=== PATIENT | male | born 1935 | race Caucasian/White ===

== ENCOUNTER 2017-01-21 18:50 | Emergency (ER) | payer MEDICARE, MEDICAID ==
[2017-01-21] MEDS ORDERED: Lactated Ringer's 1,000 ML IV STA (19:40)
--- NOTE | 2017-01-21 19:40 | C.PDOC ---
History Of Present Illness 81 year old male with Hx of diabetes is brought into the ED by EMS. Patient was found unresponsive hypoglycemic with blood sugar at 25, he is an insulin dependant diabetic. Patient received D 50 IVP and now sugar is at 140, currently awake and oriented. Patient denies any fever, couch, SOB, CP, nausea, vomit, abdominal pain. Time Seen by Provider: 01/21/17 19:40 Chief Complaint (Nursing): Medical Clearance History Per: Patient, EMS History/Exam Limitations: no limitations Onset/Duration Of Symptoms: Hrs Current Symptoms Are (Timing): Still Present Recent travel outside of the [place]: No Additional History Per: Patient, EMS Past Medical History Reviewed: Historical Data, Nursing Documentation, Vital Signs Vital Signs: Last Vital Signs Temp 97.8 F 01/21/17 19:07 Pulse 74 01/21/17 20:34 Resp 24 01/21/17 20:34 BP 178/73 H 01/21/17 20:34 Pulse Ox 98 01/21/17 22:25 - Medical History PMH: HTN Surgical History: No Surg Hx Family History: States: Unknown Family Hx - Social History Hx Alcohol Use: No Hx Substance Use: No - Immunization History Hx Tetanus Toxoid Vaccination: No Hx Influenza Vaccination: No Hx Pneumococcal Vaccination: No Review Of Systems Constitutional: Negative for: Fever, Chills Cardiovascular: Negative for: Chest Pain, Palpitations Respiratory: Negative for: Shortness of Breath Gastrointestinal: Negative for: Nausea, Vomiting, Abdominal Pain Genitourinary: Negative for: Frequency, Incontinence Musculoskeletal: Negative for: Back Pain Skin: Negative for: Rash Neurological: Negative for: Weakness, Numbness Psych: Negative for: Anxiety Physical Exam - Physical Exam Appears: Non-toxic, No Acute Distress Skin: Warm, Dry Head: Normacephalic Eye(s): bilateral: Normal Inspection Oral Mucosa: Moist Neck: Normal ROM, Supple Chest: Symmetrical Cardiovascular: Rhythm Regular, No Murmur Respiratory: No Rales, No Rhonchi, No Wheezing Gastrointestinal/Abdominal: Soft, Distention, Other (Tympanic to percussion ) Back: Normal Inspection Extremity: No Pedal Edema, No Deformity, No Swelling Extremity: Bilateral: Atraumatic, Normal Color And Temperature Pulses: Left Dorsalis Pedis: Normal, Right Dorsalis Pedis: Normal Neurological/Psych: Oriented x3, Normal Speech, Normal Cognition Gait: Steady ED Course And Treatment - Laboratory Results Result Diagrams: 01/21/17 19:42 01/21/17 19:42 ECG: Interpreted By Me, Viewed By Me ECG Rhythm: Sinus Rhythm (81), Nonspecific Changes O2 Sat by Pulse Oximetry: 98 (On RA) Pulse Ox Interpretation: Normal Progress Note: Plan: -EKG, Blood work, CXR, UA ordered. -Lactated 200 mls/Hr given Reevaluation Time: 22:31 Reassessment Condition: Improved Disposition Counseled Patient/Family Regarding: Studies Performed, Diagnosis, Need For Followup - Disposition Referrals: Nikolay Malagon MD [Staff Provider] - Disposition: HOME/ ROUTINE Disposition Time: 19:40 Condition: FAIR Additional Instructions: Please return of symptoms recur Instructions: Diabetic Hypoglycemia (DC) Forms: [employer] (Montenegrin) Print Language: MALAY - Clinical Impression Clinical Impression: Hypoglycemia due to type 1 diabetes mellitus - Scribe Statement The provider has reviewed the documentation as recorded by the Scribe Paco Esparza All medical record entries made by the Scribe were at my direction and personally dictated by me. I have reviewed the chart and agree that the record accurately reflects my personal performance of the history, physical exam, medical decision making, and the department course for this patient. I have also personally directed, reviewed, and agree with the discharge instructions and disposition.
[2017-01-21 19:45] LABS: BASO # 0.1 K/uL (0.0-0.2); BASO % 0.6 % (0.0-2.0); EOS # 0.1 K/uL (0.0-0.7); EOS % 1.1 % (0.0-4.0); HEMATOCRIT 33.9 % (35.0-51.0); LYMPH # 0.8 K/uL (1.0-4.3); LYMPH % 8.6 % (20.0-40.0); MEAN CELL VOLUME 86.8 fL (80.0-94.0); MEAN CORPUSCULAR HEMOGLOBIN 28.4 pg (27.0-31.0); MEAN CORPUSCULAR HGB CONC 32.7 g/dL (33.0-37.0); MEAN PLATELET VOLUME 7.9 fL (7.2-11.7); MONO % 10.1 % (0.0-10.0); PLATELET COUNT 246 K/uL (130-400); RED CELL DISTRIBUTION WIDTH 16.1 % (11.5-14.5); WHITE BLOOD COUNT 9.5 K/uL (4.8-10.8)
[2017-01-21 20:06] LABS: RBC URINE < 1 /hpf (0-3); URINE BILIRUBIN NEGATIVE (NEGATIVE); URINE BLOOD NEGATIVE (NEGATIVE); URINE COLOR Yellow (YELLOW); URINE GLUCOSE (UA) 2+ mg/dL (Normal); URINE KETONE NEGATIVE (NEGATIVE); URINE PROTEIN NEGATIVE (NEGATIVE); WBC URINE 2 /hpf (0-5)
[2017-01-21 20:09] LABS: URINE LEUKOCYTE ESTERASE TRACE Leu/uL (Negative)
[2017-01-21 20:10] LABS: EOSINOPHIL 1 % (0-4); NEUTROPHIL 79 % (50-75); TOTAL CELLS COUNTED 100
[2017-01-21 20:15] LABS: CHLORIDE 96 mmol/L (98-107); POTASSIUM 3.8 mmol/L (3.6-5.2); SODIUM 129 mmol/L (132-148)
[2017-01-21] MEDS ORDERED: Lactated Ringer's 1,000 ML ONE (20:15)
[2017-01-21 20:17] LABS: BILIRUBIN,TOTAL 0.7 mg/dL (0.2-1.3); GFR AFRICAN-AMERICAN > 60
[2017-01-21 20:18] LABS: ALB/GLOB RATIO 1.2 (1.0-2.1); ALKALINE PHOSPHATASE 130 U/L (38-126); ALT/SGPT 98 U/L (21-72); AST/SGOT 94 U/L (17-59); BLOOD UREA NITROGEN 10 mg/dL (9-20); CARBON DIOXIDE 24 mmol/L (22-30); GLUCOSE,RANDOM 124 mg/dL (75-110); TOTAL PROTEIN 6.8 g/dL (6.3-8.3)
[2017-01-21 20:19] LABS: CALCIUM 7.8 mg/dl (8.6-10.4)
[2017-01-21 20:35] LABS: VENOUS BLOOD GAS BASE EXCESS -2.6 mmol/L (0.0-2.0); VENOUS BLOOD GAS PCO2 46 mmHg (40-60); VENOUS BLOOD PH 7.32 (7.32-7.43)
[2017-01-21 22:25] VITALS: O2SAT 98
[2017-01-21 22:45] VITALS: BP 168/92; PULSE 86; RESP 22; TEMP 97.4
--- NOTE | 2017-01-22 09:37 | RAD ---
PROCEDURE: CHEST RADIOGRAPH, 1 VIEW Technique: Single view portable semi erect @ 19:49. HISTORY: Diabetic COMPARISON: None available. FINDINGS: LUNGS: Clear. PLEURA: No pneumothorax or pleural fluid seen. CARDIOVASCULAR: Cardiomegaly. No evidence of acute, significant cardiovascular disease. OSSEOUS STRUCTURES: No significant abnormalities. VISUALIZED UPPER ABDOMEN: Normal. OTHER FINDINGS: None. IMPRESSION: No active disease.
--- NOTE | 2017-01-22 12:23 | CARD ---
APPROVED REPORT EKG Measurement Heart [id number] <Conclusion> Normal sinus rhythm Normal ECG
== END 2017-01-21 22:41 | disposition home or self-care (01) ==
LOC: C.ER 18:50
DX: E10.649 Type 1 diabetes mellitus with hypoglycemia without coma (principal); Z79.4 Long term (current) use of insulin; I10 Essential (primary) hypertension
CPT/HCPCS: 71010; 80053; 81001; 82009; 82803; 82948; 83880; 84484; 85025; 93005; 96360; 99283; J7120

== ENCOUNTER 2018-04-08 02:27 | Inpatient (IN) | payer MEDICARE, MEDICAID ==
[2018-04-08] MEDS ORDERED: Albuterol-Ipratrop 3 mg / 0.5 (3 ml) UD INH STA ×4 (02:30→19:01)
[2018-04-08] MEDS ORDERED: Albuterol-Ipratrop 3 mg / 0.5 (3 ml) UD ONE (02:37)
[2018-04-08] MEDS ORDERED: Aspirin 325 mg EC Tablets PO STA (02:56)
--- NOTE | 2018-04-08 02:56 | C.PDOC ---
History Of Present Illness 82 year old male presents to the ED c/o chest discomfort and SOB. Patient reports when he walks a block he feels chest pain. Patient is a non insulin dependent DM. Patient denies fever, chills, nausea, vomit, diarrhea, headache, weakness, numbness. Time Seen by Provider: 04/08/18 02:55 Chief Complaint (Nursing): Chest Pain History Per: Patient History/Exam Limitations: no limitations Onset/Duration Of Symptoms: Days Current Symptoms Are (Timing): Still Present Context: Other Severity: Moderate Pain Scale Rating Of: 4 Quality: Dull, Tightness Associated Symptoms: Dyspnea Exacerbating Factors: Exertion Alleviating Factors: None Recent travel outside of the [place]: No Additional History Per: Patient, Family Past Medical History Reviewed: Historical Data, Nursing Documentation, Vital Signs Vital Signs: Last Vital Signs Temp 98.8 F 04/08/18 02:43 Pulse 60 04/08/18 02:43 Resp 22 04/08/18 02:43 BP 158/69 H 04/08/18 02:43 Pulse Ox 100 04/08/18 02:43 - Medical History PMH: HTN Denies: Chronic Kidney Disease Surgical History: No Surg Hx Family History: States: Unknown Family Hx - Social History Hx Alcohol Use: No Hx Substance Use: No - Immunization History Hx Tetanus Toxoid Vaccination: No Hx Influenza Vaccination: No Hx Pneumococcal Vaccination: No Review Of Systems Constitutional: Negative for: Fever, Chills Eyes: Negative for: Vision Change Cardiovascular: Positive for: Chest Pain. Negative for: Palpitations Respiratory: Positive for: Shortness of Breath, SOB with Excertion. Negative for: Cough Gastrointestinal: Negative for: Nausea, Vomiting, Abdominal Pain Genitourinary: Negative for: Dysuria Musculoskeletal: Negative for: Back Pain Skin: Negative for: Rash Neurological: Negative for: Weakness, Numbness, Headache, Dizziness Psych: Negative for: Anxiety Physical Exam - Physical Exam Appears: Non-toxic, No Acute Distress Skin: Warm, Dry Head: Normacephalic Eye(s): bilateral: Normal Inspection Oral Mucosa: Moist Neck: Trachea Midline, Supple Chest: Symmetrical Cardiovascular: Rhythm Regular Respiratory: No Rales, No Rhonchi, No Wheezing Gastrointestinal/Abdominal: Bowel Sounds (tympanic to percussion), Soft, No Tenderness, Distention, No Guarding, No Rebound, Other (tympanic to percussion) Back: Normal Inspection Extremity: Pedal Edema (trace), Capillary Refill (< 2 seconds) Extremity: Bilateral: Atraumatic, Normal Color And Temperature, Normal ROM Pulses: Left Dorsalis Pedis: Normal, Right Dorsalis Pedis: Normal Neurological/Psych: Oriented x3, Normal Speech, Normal Cognition Gait: Steady ED Course And Treatment - Laboratory Results Result Diagrams: 04/08/18 03:06 04/08/18 03:06 ECG: Interpreted By Me, Viewed By Me ECG Rhythm: Sinus Rhythm (58), Nonspecific Changes O2 Sat by Pulse Oximetry: 100 (On RA) Pulse Ox Interpretation: Normal Progress Note: Plan: - EKG. - Labs. - CXR. -Albuterol neb. - Aspirin 325 mg PO. - CT abd/pelvis Disposition Discussed With : Chance Linares Comment: accepted the pt on his service and took over the care at 5:22 AM Doctor Will See Patient In The: Hospital Counseled Patient/Family Regarding: Studies Performed, Diagnosis - Disposition Disposition: HOSPITALIZED Disposition Time: 02:00 Condition: FAIR Forms: [employer] (Telugu) - POA Present On Arrival: Poor Glycemic Control - Clinical Impression Clinical Impression: Chest pain, ROJAS (dyspnea on exertion) - Scribe Statement The provider has reviewed the documentation as recorded by the Scribe Paco Esparza All medical record entries made by the Scribe were at my direction and personally dictated by me. I have reviewed the chart and agree that the record accurately reflects my personal performance of the history, physical exam, medical decision making, and the department course for this patient. I have also personally directed, reviewed, and agree with the discharge instructions and disposition. Decision To Admit - Pt Status Changed To: Hospital Disposition Of: Inpatient - Admit Certification Admit to Inpatient:: After my assessment, the patient will require hospitali zation for at least two midnights. This is because of the severity of symptoms shown, intensity of services needed, and/or the medical risk in this patient being treated as an outpatient. - InPatient: Physician Admission Certification: I certify that this patient requires 2 or more midnights of care for the following reason:: After my assessment, the patient will require hospitalization for at least two midnights. This is because of the severity of symptoms shown, intensity of services needed, and/or the medical risk in this patient being treated as an outpatient. - . Bed Request Type: Telemetry Admitting Physician: Chance Linares Patient Diagnosis: Chest pain, ROJAS (dyspnea on exertion)
[2018-04-08 03:09] LABS: BASO # 0.1 K/uL (0.0-0.2); BASO % 0.9 % (0.0-2.0); EOS # 0.3 K/uL (0.0-0.7); EOS % 3.5 % (0.0-4.0); LYMPH # 2.4 K/uL (1.0-4.3); LYMPH % 23.9 % (20.0-40.0); MEAN CELL VOLUME 68.3 fL (80.0-94.0); MEAN CORPUSCULAR HEMOGLOBIN 20.6 pg (27.0-31.0); MEAN CORPUSCULAR HGB CONC 30.1 g/dL (33.0-37.0); MEAN PLATELET VOLUME 7.9 fL (7.2-11.7); MONO # 0.8 K/uL (0.0-0.8); MONO % 8.5 % (0.0-10.0); NEUT # 6.2 K/uL (1.8-7.0); NEUT % 63.2 % (50.0-75.0); NRBC % 0.1 % (0.0-2.0); RBC 3.91 Mil/uL (4.40-5.90); RED CELL DISTRIBUTION WIDTH 18.1 % (11.5-14.5); WHITE BLOOD COUNT 9.9 K/uL (4.8-10.8)
[2018-04-08 03:24] LABS: ALB/GLOB RATIO 1.1 (1.0-2.1); ALBUMIN 3.6 g/dL (3.5-5.0); ALT/SGPT 30 U/L (21-72); AST/SGOT 50 U/L (17-59); BLOOD UREA NITROGEN 17 mg/dL (9-20); GFR NON-AFRICAN AMERICAN > 60; INR 1.1; LIPASE 330 U/L (23-300); PROTHROMBIN TIME 12.2 SECONDS (9.7-12.2)
[2018-04-08 03:35] LABS: B-TYPE NATRIURETIC PEPTIDE 522 pg/mL (0-900)
[2018-04-08] MEDS ORDERED: Iodixanol 320 MG/ML 100 ML BOTTLE IV ONE (04:29)
--- NOTE | 2018-04-08 06:01 | CP.PCM.HP ---
<Patrice Al - Last Filed: 04/08/18 08:07> History of Present Illness - History of Present Illness History of Present Illness: PGY1 H&P for medicine hospitalist CC: chest discomfort and shortness of breath This is an 82 year old male with PMH of IDDM, HTN, BPH, arthritis who was brought in by ambulance for a 1 week history of worsening chest discomfort and shortness of breath on exertion. Pt describes the chest discomfort as a pressure across the lower chest/upper abdomen. He states that he becomes short of breath after walking approximately 15 feet, and states that he has had a cough productive of white sputum for the past week as well. Patient is also complaining of lower back pain which has been going on for some time now, he is unable to state how long. He denies fever, chills, palpitations, abdominal pain, n/v/d, hematochezia, melena, falls, syncope, dizziness, weakness, weight loss, decreased appetite, hematuria, new urinary complaints. He endorses chronic bl urry vision. He states that he has gained approximately 20 pounds over the past year. PMD: Manas PMH: IDDM, HTN, BPH, arthritis. He denies CAD, HLD NV or PAD in the past. PSH: denies Meds: metoprolol 100 mg PO daily, torsemide 1 tab daily, clopidogrel 1 tab daily (unsure of dose and why he takes it), Metformin 500 mg PO BID, Finasteride 5 mg PO daily, Vitamin D, Tamsulosin 0.4 mg PO daily, Ibuprofen 400 mg PO as needed for arthritic pain (mostly in the knees), novolog flex pen 4 units three times a da, Toujeo 45 units at nighttime Allx: NKDA FHx: denies Social History: denies history of etoh, smoking, or drug use Present on Admission - Present on Admission Any Indicators Present on Admission: No Review of Systems - Review of Systems All systems: reviewed and no additional remarkable complaints except (as per HPI) Past Patient History - Past Social History Smoking Status: Never Smoked - CARDIAC Hx Hypertension: Yes - PULMONARY Hx Respiratory Disorders: No - NEUROLOGICAL Hx Neurological Disorder: No - HEENT Hx HEENT Problems: No - RENAL Hx Chronic Kidney Disease: No - ENDOCRINE/METABOLIC Hx Diabetes Mellitus Type 1: No Hx Diabetes Mellitus Type 2: Yes - GENITOURINARY/GYNECOLOGICAL Hx Prostate Problems: Yes - PSYCHIATRIC Hx Substance Use: No - SURGICAL HISTORY Hx Surgeries: No - ANESTHESIA Hx Anesthesia: No Meds Allergies/Adverse Reactions: Allergies Allergy/AdvReac Type Severity Reaction Status Date / Time No Known Allergies Allergy Verified 04/08/18 02:48 Physical Exam - Constitutional Appears: Non-toxic, No Acute Distress - Head Exam Head Exam: ATRAUMATIC, NORMAL INSPECTION - Eye Exam Eye Exam: EOMI - ENT Exam ENT Exam: Mucous Membranes Moist - Neck Exam Neck exam: Positive for: Normal Inspection - Respiratory Exam Respiratory Exam: Wheezes, NORMAL BREATHING PATTERN. absent: Rales, Rhonchi, Respiratory Distress - Cardiovascular Exam Cardiovascular Exam: REGULAR RHYTHM, +S1, +S2. absent: JVD - GI/Abdominal Exam GI & Abdominal Exam: Distended (with tympany, normal as per pt), Normal Bowel Sounds. absent: Firm, Guarding, Pulsatile Mass, Rebound, Rigid, Tenderness - Rectal Exam Rectal Exam: Deferred - Extremities Exam Extremities exam: Positive for: normal capillary refill, pedal edema, pedal pulses present. 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 absent: CVA tenderness (L), CVA tenderness (R) - Neurological Exam Neurological exam: Alert, Oriented x3 - Psychiatric Exam Psychiatric exam: Normal Affect, Normal Mood - Skin Skin Exam: Dry, Normal Color, Warm Results - Vital Signs Recent Vital Signs: Last Vital Signs Temp 98.8 F 04/08/18 02:43 Pulse 58 L 04/08/18 02:57 Resp 18 04/08/18 02:57 BP 158/69 H 04/08/18 02:43 Pulse Ox 100 04/08/18 05:24 - Labs Result Diagrams: 04/08/18 03:06 04/08/18 03:06 Labs: Laboratory Results - last 24 hr 04/08/18 04/08/18 04/08/18 03:06 03:06 03:06 WBC 9.9 RBC 3.91 L Hgb 8.0 L D Hct 26.7 L MCV 68.3 L D MCH 20.6 L MCHC 30.1 L RDW 18.1 H Plt Count 294 MPV 7.9 Neut % (Auto) 63.2 Lymph % (Auto) 23.9 [place] % (Auto) 8.5 Eos % (Auto) 3.5 Baso % (Auto) 0.9 Neut # (Auto) 6.2 Lymph # (Auto) 2.4 [place] # (Auto) 0.8 Eos # (Auto) 0.3 Baso # (Auto) 0.1 PT 12.2 INR 1.1 APTT 31 Sodium 126 L Potassium 4.4 Chloride 93 L Carbon Dioxide 28 Anion Gap 10 BUN 17 Creatinine 0.6 L Est GFR ( Amer) > 60 Est GFR (Non-Af Amer) > 60 Random Glucose 78 D Calcium 8.0 L Total Bilirubin 0.5 AST 50 ALT 30 Alkaline Phosphatase 122 Troponin I < 0.0120 NT-Pro-B Natriuret Pep 522 Total Protein 6.7 Albumin 3.6 Globulin 3.2 Albumin/Globulin Ratio 1.1 Lipase 330 H Assessment & Plan - Assessment and Plan (Free Text) Assessment: This is an 82 year old male with PMH of IDDM, HTN, BPH, arthritis who presents with a 1 week history of worsening dyspnea on exertion and dull/pressure chest discomfort. Plan: Chest pain with dyspnea on exertion r/o ACS, likely due to CHF Pt received ASA 325 mg PO x1 dose in the ED Although patient denies having CHF, he is on medications for CHF treatment BNP is 522 on admission Troponin x1 is negative, f/u DEBRA x2 Q6H with EKG Lasix 20 mg IVP daily, hold home torsemide Cardiology, Dr. Andrade, consulted, recs appreciated F/u Echocardiogram Plavix on hold. F/u up with Dr. Malagon regarding why patient is taking Plavix as he denies history of stent placement Elevated lipase, possibly due to constipation Lipase is 330 on admission No GI complaints on admission Abdominal CT shows mild irregularity of the liver, probably chronic parenchymal liver disease. Benign simple left hepatic lobe cyst. Uncomplicated colonic diverticulosis. Minimal left pleural effusion. Mild right pleural effusion. Passive atelectatic airspace disease of the lower lobes. Prostatomegaly. Mild diffuse thickening of the bladder. Probably secondary to chronic bladder outlet obstruction. Unremarkable CT evaluation of the pancreas. Lactulose PO x 1 dose Anemia, microcytic; Possibly contributing to pt's dyspnea H/H is 8.0/26.7 on admission, MCV is 68.3 F/u iron, TIBC, ferritin, reticulocyte count, FOBT Hyponatremia, likely chronic and possibly due to CHF Sodium is 126 on admission, pt is stable F/u urine sodium, urine osmolality, serum osmolality Insulin dependant diabetes mellitus Continue home Novolog 4 units ACHS Will start insulin Glargine 45 units at bedtime instead of home Toujeo 45 units at bedtime Accucheck ACHS ISS medium Hypoglycemia protocol F/u HgbA1c, Lipid panel Lumbar back pain, likely musculoskeletal/arthritis or due to spondylosis noted on abdominal CT Hold home ibuprofen in setting of anemia F/u lumbar spine x-ray Hx of HTN Continue home lisinopril 40 mg PO daily, metoprolol 100 mg PO daily Hx of BPH Continue home Finasteride 5 mg PO daily, Tamsulosin 0.4 mg PO daily GI Ppx: Pepcid 20 mg PO daily DVT ppx: on hold due to anemia, f/u fobt CCD/HHD Case reviewed and discussed with attending physician, Dr. Milagros Al PGY1 <Chance Linares - Last Filed: 04/09/18 05:40> Results - Vital Signs Recent Vital Signs: Last Vital Signs Temp 99.4 F 04/08/18 23:05 Pulse 68 04/09/18 00:05 Resp 20 04/08/18 23:05 BP 172/82 H 04/09/18 04:00 Pulse Ox 98 04/08/18 23:05 - Labs Result Diagrams: 04/08/18 03:06 04/08/18 03:06 Labs: Laboratory Results - last 24 hr 04/08/18 04/08/18 04/08/18 10:03 11:28 11:28 Retic Count Puncture Site pCO2 pO2 HCO3 ABG pH ABG Total CO2 ABG O2 Saturation ABG Base Excess Spike Test ABG Potassium A-a O2 Difference Respiratory Index Sodium Chloride Glucose Lactate Liter Flow FiO2 POC Glucose (mg/dL) 128 H Hemoglobin A1c Serum Osmolality Iron 21 L TIBC 502 H Ferritin 5.7 Total Creatine Kinase CK-MB (Mass) Troponin I Triglycerides 120 Cholesterol 150 LDL Cholesterol Direct 94 HDL Cholesterol 36 Arterial Blood Potassium Urine Osmolality Ur Random Sodium 04/08/18 04/08/18 04/08/18 11:28 11:28 11:28 Retic Count 2.3 H Puncture Site pCO2 pO2 HCO3 ABG pH ABG Total CO2 ABG O2 Saturation ABG Base Excess Spike Test ABG Potassium A-a O2 Difference Respiratory Index Sodium Chloride Glucose Lactate Liter Flow FiO2 POC Glucose (mg/dL) Hemoglobin A1c 8.7 H Serum Osmolality 276 Iron TIBC Ferritin Total Creatine Kinase CK-MB (Mass) Troponin I Triglycerides Cholesterol LDL Cholesterol Direct HDL Cholesterol Arterial Blood Potassium Urine Osmolality Ur Random Sodium 04/08/18 04/08/18 04/08/18 12:43 17:30 17:38 Retic Count Puncture Site pCO2 pO2 HCO3 ABG pH ABG Total CO2 ABG O2 Saturation ABG Base Excess Spike Test ABG Potassium A-a O2 Difference Respiratory Index Sodium Chloride Glucose Lactate Liter Flow FiO2 POC Glucose (mg/dL) 163 H 165 H Hemoglobin A1c Serum Osmolality Iron TIBC Ferritin Total Creatine Kinase 229 H CK-MB (Mass) 2.78 Troponin I < 0.0120 Triglycerides Cholesterol LDL Cholesterol Direct HDL Cholesterol Arterial Blood Potassium Urine Osmolality Ur Random Sodium 04/08/18 04/08/18 04/08/18 18:40 19:10 21:07 Retic Count Puncture Site Rra pCO2 45 pO2 96 HCO3 26.9 ABG pH 7.40 ABG Total CO2 29.3 H ABG O2 Saturation 99.3 H ABG Base Excess 2.5 Spike Test Pos ABG Potassium 4.2 A-a O2 Difference 76.0 Respiratory Index 0.8 Sodium 130.0 L Chloride 99.0 Glucose 136 H Lactate 1.1 Liter Flow 3.0 FiO2 32.0 POC Glucose (mg/dL) 252 H Hemoglobin A1c Serum Osmolality Iron TIBC Ferritin Total Creatine Kinase CK-MB (Mass) Troponin I Triglycerides Cholesterol LDL Cholesterol Direct HDL Cholesterol Arterial Blood Potassium 4.2 Urine Osmolality 251 L Ur Random Sodium 75 04/09/18 02:06 Retic Count Puncture Site pCO2 pO2 HCO3 ABG pH ABG Total CO2 ABG O2 Saturation ABG Base Excess Spike Test ABG Potassium A-a O2 Difference Respiratory Index Sodium Chloride Glucose Lactate Liter Flow FiO2 POC Glucose (mg/dL) 231 H Hemoglobin A1c Serum Osmolality Iron TIBC Ferritin Total Creatine Kinase CK-MB (Mass) Troponin I Triglycerides Cholesterol LDL Cholesterol Direct HDL Cholesterol Arterial Blood Potassium Urine Osmolality Ur Random Sodium Assessment & Plan - Date & Time Date: 04/09/18 (I have seen and examined the patient. I agree with the findings and plan of care as documented by Dr. Al. Patient with chest pain. ROMIx3 with EKG. Aspirin and Statin. Hyponatremia. IVF NS. Recheck. History of diabetes. Accuchecks and continue home meds. Constipation. Colace and consider enema if necessary. Monitor for acute changes.) Time: 05:38 Attending/Attestation - Attestation I have personally seen and examined this patient.: Yes I have fully participated in the care of the patient.: Yes I have reviewed all pertinent clinical information: Yes
[2018-04-08] MEDS ORDERED: Glucagon Recombinant 1 mg Inj IM PRN (07:17)
[2018-04-08] MEDS ORDERED: Dextrose 50% SYRINGE Inj (50 ml) IV PRN (07:17)
[2018-04-08] MEDS ORDERED: (Novolog) Insulin Aspart, Recombinant 100 u/ml 10 ml vial ONE (10:18)
[2018-04-08] MEDS ORDERED: Metoprolol Succinate 50 mg XL Tab PO ONE (10:23)
[2018-04-08] MEDS: (Novolin R) Insulin Human Regular 100 units/ml vial SC SCH ×4 (10:24→21:20)
[2018-04-08] MEDS: (Novolog) Insulin Aspart, Recombinant 100 u/ml 10 ml vial SC SCH ×5 (10:25→21:49)
[2018-04-08] MEDS: Metoprolol Succinate 100 mg XL Tab PO SCH (10:25)
[2018-04-08 12:04] LABS: IRON 21 ug/dL (49-181)
[2018-04-08 12:16] LABS: TOTAL IRON BINDING CAPACITY 502 ug/dL (250-450)
--- NOTE | 2018-04-08 12:20 | RAD ---
Date of service: 04/08/2018 HISTORY: Dyspnea. COMPARISON: 03/23/2016 TECHNIQUE: Chest PA and lateral FINDINGS: LUNGS: Stable elevation of the right hemidiaphragm. Pulmonary vascular congestion identified. PLEURA: No significant pleural effusion identified. No pneumothorax apparent. CARDIOVASCULAR: No aortic atherosclerotic calcification present. Cardiomegaly/pulmonary vascular congestion. OSSEOUS STRUCTURES: No significant abnormalities. VISUALIZED UPPER ABDOMEN: Normal. OTHER FINDINGS: None. IMPRESSION: Cardiomegaly/CHF
--- NOTE | 2018-04-08 12:21 | RAD ---
Date of service: 04/08/2018 PROCEDURE: Radiographs of the Lumbar Spine. HISTORY: lower back pain COMPARISON: No prior. FINDINGS: BONES: Normal alignment. No listhesis. No fracture. DISC SPACES: Disc degenerative change and associated non marginal osteophytes lower thoracic and upper lumbar spine. OTHER FINDINGS: Calcified nonaneurysmal abdominal aorta. IMPRESSION: Mild degenerative change. No acute findings.
[2018-04-08 12:35] LABS: FERRITIN 5.7 ng/mL
--- NOTE | 2018-04-08 12:50 | CP.PCM.CON ---
<RonTana EasonStephanie - Last Filed: 04/08/18 18:05> History of Present Illness - History of Present Illness History of Present Illness: Cardiology Consult Note for Dr. Andrade: 82 year old male with past medical history of IDDM, HTN, BPH, arthritis who was brought to the ER by ambulance for a 2 weeks of shortness of breath that became worse today as it was associated with chest pain. Patient states the chest pain is located in the middle upper area of his chest and he denies radiation of the pain. He states the shortness of breath is on exertion. He states he previously was able to walk about 14 blocks without a problem and now he cannot. He states he sleeps with 2 pillows at night. He states he feels like he can hear a rumbling sound in his throat and it is uncomfortable. He also complains of cough with phlegm which is yellow and white in color. He denies fever, chills, palpitations, abdominal pain, nausea, vomiting, diarrhea, hematochezia, melena, falls, syncope, dizziness, weakness, weight loss, decreased appetite or hematuria. PMD: Dr. Malagno Past Medical History: Insulin dependent diabetes mellitus, HTN, BPH, arthritis. Past Surgical History: denies Medications: see MAR Allergies: NKDA Social History: denies ever smoking. denies alcohol or illicit drug use. Lives with daughter. Originally from [facility] has been here for 20+ years. Denies recent travel Review of Systems - Constitutional Constitutional: absent: Chills, Fever - Cardiovascular Cardiovascular: Chest Pain, Dyspnea, Leg Edema. absent: Chest Pain with Activity, Lightheadedness, Palpitations, Syncope - Respiratory Respiratory: Cough, Dyspnea, Chest Congestion, Change in Mucous Color (yellow/white ) - Gastrointestinal Gastrointestinal: absent: Constipation, Diarrhea, Nausea, Vomiting - Genitourinary Genitourinary: absent: Dysuria - Neurological Neurological: absent: Dizziness, Headaches - Endocrine Endocrine: absent: Fatigue, Palpitations Past Patient History - Past Medical History & Family History Past Medical History?: Yes - Past Social History Smoking Status: Never Smoked - CARDIAC Hx Hypertension: Yes - PULMONARY Hx Respiratory Disorders: No - NEUROLOGICAL Hx Neurological Disorder: No - HEENT Hx HEENT Problems: No - RENAL Hx Chronic Kidney Disease: No - ENDOCRINE/METABOLIC Hx Diabetes Mellitus Type 2: Yes - HEMATOLOGICAL/ONCOLOGICAL Hx Blood Disorders: No - INTEGUMENTARY Hx Dermatological Problems: No - MUSCULOSKELETAL/RHEUMATOLOGICAL Hx Musculoskeletal Disorders: No Hx Falls: Yes - GASTROINTESTINAL Hx Gastrointestinal Disorders: No - GENITOURINARY/GYNECOLOGICAL Hx Prostate Problems: Yes - PSYCHIATRIC Hx Substance Use: No - SURGICAL HISTORY Hx Surgeries: No - ANESTHESIA Hx Anesthesia: No Meds Allergies/Adverse Reactions: Allergies Allergy/AdvReac Type Severity Reaction Status Date / Time No Known Allergies Allergy Verified 04/08/18 02:48 - Medications Medications: Current Medications Dextrose (Dextrose 50% Inj) 0 ml IV STAT PRN; Protocol PRN Reason: Hypoglycemia Protocol Dextrose (Glutose 15) 0 gm PO ONCE PRN; Protocol PRN Reason: Hypoglycemia Protocol Famotidine (Pepcid) 20 mg PO DAILY [facility] Last Admin: 04/08/18 10:25 Dose: 20 mg Finasteride (Proscar) 5 mg PO DAILY [facility] Furosemide (Lasix) 20 mg IVP DAILY [facility] Last Admin: 04/08/18 10:23 Dose: 20 mg Glucagon (Glucagen Diagnostic Kit) 0 mg IM STAT PRN; Protocol PRN Reason: Hypoglycemia Protocol Dextrose (Dextrose 5% In Water 1000 Ml) 1,000 mls @ 0 mls/hr IV .Q0M PRN; Protocol PRN Reason: Hypoglycemia Protocol Insulin Aspart (Novolog) 4 unit SC [facility] Last Admin: 04/08/18 10:25 Dose: 4 unit Insulin Glargine (Lantus) 45 unit SC [facility] Insulin Human Regular (Novolin R) 0 unit SC [facility]; Protocol Last Admin: 04/08/18 10:24 Dose: Not Given Lisinopril (Zestril) 40 mg PO DAILY [facility] Last Admin: 04/08/18 10:25 Dose: 40 mg Metoprolol Succinate (Toprol Xl) 100 mg PO DAILY [facility] Last Admin: 04/08/18 10:25 Dose: 100 mg Pneumococcal Polyvalent Vaccine (Pneumovax 23 Vaccine) 0.5 ml IM .ONCE ONE Stop: 04/10/18 10:01 Tamsulosin HCl (Flomax) 0.4 mg PO DAILY [facility] Last Admin: 04/08/18 10:23 Dose: 0.4 mg Physical Exam - Constitutional Appears: In Acute Distress - Head Exam Head Exam: ATRAUMATIC, NORMAL INSPECTION - Eye Exam Eye Exam: EOMI, Normal appearance - ENT Exam ENT Exam: Mucous Membranes Moist - Respiratory Exam Respiratory Exam: Decreased Breath Sounds, NORMAL BREATHING PATTERN. absent: Rales, Rhonchi, Wheezes - Cardiovascular Exam Cardiovascular Exam: REGULAR RHYTHM, RRR, +S1, +S2. absent: JVD - GI/Abdominal Exam GI & Abdominal Exam: Distended, Firm, Normal Bowel Sounds. absent: Tenderness - Extremities Exam Extremities exam: Positive for: pedal edema (+1 pedal edema bilateral LE) - Neurological Exam Neurological exam: Alert, Oriented x3 - Psychiatric Exam Psychiatric exam: Normal Affect, Normal Mood - Skin Skin Exam: Normal Color Results - Vital Signs Recent Vital Signs: Last Vital Signs Temp 98.8 F 04/08/18 02:43 Pulse 58 L 04/08/18 02:57 Resp 18 04/08/18 02:57 BP 147/56 L 04/08/18 10:23 Pulse Ox 100 04/08/18 05:24 - Labs Result Diagrams: 04/08/18 03:06 04/08/18 03:06 Labs: Laboratory Results - last 24 hr 04/08/18 04/08/18 04/08/18 03:06 03:06 03:06 WBC 9.9 RBC 3.91 L Hgb 8.0 L D Hct 26.7 L MCV 68.3 L D MCH 20.6 L MCHC 30.1 L RDW 18.1 H Plt Count 294 MPV 7.9 Neut % (Auto) 63.2 Lymph % (Auto) 23.9 Kane % (Auto) 8.5 Eos % (Auto) 3.5 Baso % (Auto) 0.9 Neut # (Auto) 6.2 Lymph # (Auto) 2.4 Kane # (Auto) 0.8 Eos # (Auto) 0.3 Baso # (Auto) 0.1 Retic Count PT 12.2 INR 1.1 APTT 31 Sodium 126 L Potassium 4.4 Chloride 93 L Carbon Dioxide 28 Anion Gap 10 BUN 17 Creatinine 0.6 L Est GFR ( Amer) > 60 Est GFR (Non-Af Amer) > 60 POC Glucose (mg/dL) Random Glucose 78 D Hemoglobin A1c Serum Osmolality Calcium 8.0 L Iron TIBC Ferritin Total Bilirubin 0.5 AST 50 ALT 30 Alkaline Phosphatase 122 Troponin I < 0.0120 NT-Pro-B Natriuret Pep 522 Total Protein 6.7 Albumin 3.6 Globulin 3.2 Albumin/Globulin Ratio 1.1 Triglycerides Cholesterol LDL Cholesterol Direct HDL Cholesterol Lipase 330 H 04/08/18 04/08/18 04/08/18 10:03 11:28 11:28 WBC RBC Hgb Hct MCV MCH MCHC RDW Plt Count MPV Neut % (Auto) Lymph % (Auto) Kane % (Auto) Eos % (Auto) Baso % (Auto) Neut # (Auto) Lymph # (Auto) Kane # (Auto) Eos # (Auto) Baso # (Auto) Retic Count PT INR APTT Sodium Potassium Chloride Carbon Dioxide Anion Gap BUN Creatinine Est GFR ( Amer) Est GFR (Non-Af Amer) POC Glucose (mg/dL) 128 H Random Glucose Hemoglobin A1c Serum Osmolality Calcium Iron 21 L TIBC 502 H Ferritin 5.7 Total Bilirubin AST ALT Alkaline Phosphatase Troponin I NT-Pro-B Natriuret Pep Total Protein Albumin Globulin Albumin/Globulin Ratio Triglycerides 120 Cholesterol 150 LDL Cholesterol Direct 94 HDL Cholesterol 36 Lipase 04/08/18 04/08/18 04/08/18 11:28 11:28 11:28 WBC RBC Hgb Hct MCV MCH MCHC RDW Plt Count MPV Neut % (Auto) Lymph % (Auto) Kane % (Auto) Eos % (Auto) Baso % (Auto) Neut # (Auto) Lymph # (Auto) Kane # (Auto) Eos # (Auto) Baso # (Auto) Retic Count 2.3 H PT INR APTT Sodium Potassium Chloride Carbon Dioxide Anion Gap BUN Creatinine Est GFR ( Amer) Est GFR (Non-Af Amer) POC Glucose (mg/dL) Random Glucose Hemoglobin A1c 8.7 H Serum Osmolality 276 Calcium Iron TIBC Ferritin Total Bilirubin AST ALT Alkaline Phosphatase Troponin I NT-Pro-B Natriuret Pep Total Protein Albumin Globulin Albumin/Globulin Ratio Triglycerides Cholesterol LDL Cholesterol Direct HDL Cholesterol Lipase Assessment & Plan - Assessment and Plan (Free Text) Assessment: 82 year old male with past medical history of IDDM, HTN, BPH, arthritis who was brought to the ER by ambulance for a 2 weeks of shortness of breath that became worse today as it was associated with chest pain. Chest pain with dyspnea on exertion Possibly secondary to acute on chronic anemia vs. lung pathology (possibly lung fibrosis) Discussed with Dr. Raymond VINSON at this time is not secondary to CHF exacerbation - Patient received ASA 325 mg PO x1 dose in the ED - BNP 522 - which is within normal range - Troponin x2 is negative - Lasix 20 mg IVP daily - Lipid Panel: Total Cholesterol 150; LDL 94; HDL 36; Triglycerides 120 - ECHO (04/08/18): reviewed with Dr. Andrade which showed normal EF; Diastolic CHF - Chest CT (04/08/18): There a small right-sided effusion with minor right basilar atelectasis. Trace left effusion and minimal left basilar atelectasis. Mild pulmonary venous congestive changes are present. There is a small somewhat triangular-shaped nodular opacity in the right middle lobe that measures approximately 4.2 mm. There is also a subjacent slightly more inferiorly located 5 mm nodular opacity. - Noted in chart review patient has a stress test completed in 06/23/[address] 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 Patient denies surgeries. Will follow up with Dr. Sweet. History of HTN - Continue home lisinopril 40 mg PO daily, metoprolol 100 mg PO daily Insulin dependant diabetes mellitus - Management per primary team - hA1c 8.[address] Raymond Velasquez PGY-2 <Honorio Andrade - Last Filed: 04/09/18 22:40> Meds - Medications Medications: Current Medications Albuterol/Ipratropium (Duoneb 3 Mg/0.5 Mg (3 Ml) Ud) 3 ml INH RQ6 [facility] Last Admin: 04/09/18 19:25 Dose: 3 ml Dextrose (Dextrose 50% Inj) 0 ml IV STAT PRN; Protocol PRN Reason: Hypoglycemia Protocol Dextrose (Glutose 15) 0 gm PO ONCE PRN; Protocol PRN Reason: Hypoglycemia Protocol Finasteride (Proscar) 5 mg PO DAILY [facility] Last Admin: 04/09/18 09:36 Dose: 5 mg Furosemide (Lasix) 20 mg IVP DAILY [facility] Last Admin: 04/09/18 09:37 Dose: 20 mg Glucagon (Glucagen Diagnostic Kit) 0 mg IM STAT PRN; Protocol PRN Reason: Hypoglycemia Protocol Dextrose (Dextrose 5% In Water 1000 Ml) 1,000 mls @ 0 mls/hr IV .Q0M PRN; P rotocol PRN Reason: Hypoglycemia Protocol Piperacillin Sod/Tazobactam Sod (Zosyn 3.375 Gm Iv Premix) 3.375 gm in 50 mls @ 100 mls/hr IVPB Q6H [facility]; Protocol Last Admin: 04/09/18 20:00 Dose: 100 mls/hr Insulin Aspart (Novolog) 4 unit SC ACHS [facility] Last Admin: 04/09/18 21:41 Dose: 4 unit Insulin Glargine (Lantus) 45 unit SC HS [facility] Last Admin: 04/09/18 21:41 Dose: 45 units Insulin Human Regular (Novolin R) 0 unit SC ACHS [facility]; Protocol Last Admin: 04/09/18 21:41 Dose: 4 unit Lisinopril (Zestril) 40 mg PO DAILY [facility] Last Admin: 04/09/18 09:36 Dose: 40 mg Methylprednisolone (Solu-Medrol) 40 mg IVP Q6H [facility] Last Admin: 04/09/18 20:00 Dose: 40 mg Metoprolol Succinate (Toprol Xl) 100 mg PO DAILY [facility] Last Admin: 04/09/18 09:36 Dose: 100 mg Pantoprazole Sodium (Protonix Inj) 40 mg IVP Q12H [facility] Last Admin: 04/09/18 16:00 Dose: 40 mg Pneumococcal Polyvalent Vaccine (Pneumovax 23 Vaccine) 0.5 ml IM .ONCE ONE Stop: 04/10/18 10:01 Tamsulosin HCl (Flomax) 0.4 mg PO DAILY [facility] Last Admin: 04/09/18 09:36 Dose: 0.4 mg Results - Vital Signs Recent Vital Signs: Last Vital Signs Temp 98.9 F 04/09/18 15:00 Pulse 77 04/09/18 16:31 Resp 20 04/09/18 15:00 BP 117/76 04/09/18 15:00 Pulse Ox 9 L 04/09/18 15:00 - Labs Result Diagrams: 04/09/18 06:34 04/09/18 06:34 Labs: Laboratory Results - last 24 hr 04/08/18 04/08/18 04/09/18 13:50 13:50 02:06 WBC RBC Hgb Hct MCV MCH MCHC RDW Plt Count MPV Neut % (Auto) Lymph % (Auto) Kane % (Auto) Eos % (Auto) Baso % (Auto) Neut # (Auto) Lymph # (Auto) Kane # (Auto) Eos # (Auto) Baso # (Auto) Puncture Site pCO2 pO2 HCO3 ABG pH ABG Total CO2 ABG O2 Saturation ABG Base Excess Spike Test ABG Potassium A-a O2 Difference Respiratory Index Glucose Lactate FiO2 Sodium Potassium Chloride Carbon Dioxide Anion Gap BUN Creatinine Est GFR ( Amer) Est GFR (Non-Af Amer) POC Glucose (mg/dL) 231 H Random Glucose Calcium Phosphorus Magnesium Iron TIBC % Saturation Ferritin Total Bilirubin AST ALT Alkaline Phosphatase NT-Pro-B Natriuret Pep Total Protein Albumin Globulin Albumin/Globulin Ratio Prostate Specific Ag Procalcitonin < 0.05 L Arterial Blood Potassium H.influenzae Type B Ag Negative Ur L.pneumophila Ag Negative Mycoplasma pneumon IgM Negative N.meningitidis ACY/W135 Negative N.meningi B/E.coli K1 Ag Negative Group B Strep Antigen Negative S. pneumoniae Antigen Negative 04/09/18 04/09/18 04/09/18 06:34 06:34 06:39 WBC 9.8 RBC 4.06 L Hgb 8.5 L Hct 27.5 L MCV 67.8 L MCH 20.9 L MCHC 30.8 L RDW 18.1 H Plt Count 363 MPV 8.1 Neut % (Auto) 87.1 H Lymph % (Auto) 11.9 L Kane % (Auto) 0.7 Eos % (Auto) 0.1 Baso % (Auto) 0.2 Neut # (Auto) 8.6 H Lymph # (Auto) 1.2 Kane # (Auto) 0.1 Eos # (Auto) 0.0 Baso # (Auto) 0.0 Puncture Site pCO2 pO2 HCO3 ABG pH ABG Total CO2 ABG O2 Saturation ABG Base Excess Spike Test ABG Potassium A-a O2 Difference Respiratory Index Glucose Lactate FiO2 Sodium 129 L Potassium 4.7 Chloride 93 L Carbon Dioxide 29 Anion Gap 12 BUN 18 Creatinine 0.7 L Est GFR ( Amer) > 60 Est GFR (Non-Af Amer) > 60 POC Glucose (mg/dL) 244 H Random Glucose 204 H D Calcium 7.9 L Phosphorus 4.4 Magnesium 2.1 Iron TIBC % Saturation Ferritin Total Bilirubin 0.6 AST 47 ALT 39 Alkaline Phosphatase 131 H NT-Pro-B Natriuret Pep Total Protein 7.1 Albumin 3.7 Globulin 3.4 Albumin/Globulin Ratio 1.1 Prostate Specific Ag Procalcitonin Arterial Blood Potassium H.influenzae Type B Ag Ur L.pneumophila Ag Mycoplasma pneumon IgM N.meningitidis ACY/W135 N.meningi B/E.coli K1 Ag Group B Strep Antigen S. pneumoniae Antigen 04/09/18 04/09/18 04/09/18 11:32 13:50 13:50 WBC RBC Hgb Hct MCV MCH MCHC RDW Plt Count MPV Neut % (Auto) Lymph % (Auto) Kane % (Auto) Eos % (Auto) Baso % (Auto) Neut # (Auto) Lymph # (Auto) Kane # (Auto) Eos # (Auto) Baso # (Auto) Puncture Site pCO2 pO2 HCO3 ABG pH ABG Total CO2 ABG O2 Saturation ABG Base Excess Spike Test ABG Potassium A-a O2 Difference Respiratory Index Glucose Lactate FiO2 Sodium Potassium Chloride Carbon Dioxide Anion Gap BUN Creatinine Est GFR ( Amer) Est GFR (Non-Af Amer) POC Glucose (mg/dL) 305 H Random Glucose Calcium Phosphorus Magnesium Iron 17 L TIBC 500 H % Saturation 3 L Ferritin 5.9 Total Bilirubin AST ALT Alkaline Phosphatase NT-Pro-B Natriuret Pep Total Protein Albumin Globulin Albumin/Globulin Ratio Prostate Specific Ag Procalcitonin Arterial Blood Potassium H.influenzae Type B Ag Ur L.pneumophila Ag Mycoplasma pneumon IgM N.meningitidis ACY/W135 N.meningi B/E.coli K1 Ag Group B Strep Antigen S. pneumoniae Antigen 04/09/18 04/09/18 04/09/18 13:50 16:27 16:39 WBC RBC Hgb Hct MCV MCH MCHC RDW Plt Count MPV Neut % (Auto) Lymph % (Auto) Kane % (Auto) Eos % (Auto) Baso % (Auto) Neut # (Auto) Lymph # (Auto) Kane # (Auto) Eos # (Auto) Baso # (Auto) Puncture Site pCO2 pO2 HCO3 ABG pH ABG Total CO2 ABG O2 Saturation ABG Base Excess Spike Test ABG Potassium A-a O2 Difference Respiratory Index Glucose Lactate FiO2 Sodium Potassium Chloride Carbon Dioxide Anion Gap BUN Creatinine Est GFR ( Amer) Est GFR (Non-Af Amer) POC Glucose (mg/dL) 375 H Random Glucose Calcium Phosphorus Magnesium Iron TIBC % Saturation Ferritin Total Bilirubin AST ALT Alkaline Phosphatase NT-Pro-B Natriuret Pep 682 Total Protein Albumin Globulin Albumin/Globulin Ratio Prostate Specific Ag 0.641 Procalcitonin Arterial Blood Potassium H.influenzae Type B Ag Ur L.pneumophila Ag Mycoplasma pneumon IgM N.meningitidis ACY/W135 N.meningi B/E.coli K1 Ag Group B Strep Antigen S. pneumoniae Antigen 04/09/18 04/09/18 16:45 21:17 WBC RBC Hgb Hct MCV MCH MCHC RDW Plt Count MPV Neut % (Auto) Lymph % (Auto) Kane % (Auto) Eos % (Auto) Baso % (Auto) Neut # (Auto) Lymph # (Auto) Kane # (Auto) Eos # (Auto) Baso # (Auto) Puncture Site Rra pCO2 49 H pO2 59 L HCO3 27.1 ABG pH 7.38 ABG Total CO2 30.5 H ABG O2 Saturation 95.3 ABG Base Excess 3.0 Spike Test Pos ABG Potassium 4.4 A-a O2 Difference 29.0 Respiratory Index 0.5 Glucose 364 H Lactate 1.5 FiO2 21.0 Sodium 130.0 L Potassium Chloride 100.0 Carbon Dioxide Anion Gap BUN Creatinine Est GFR ( Amer) Est GFR (Non-Af Amer) POC Glucose (mg/dL) 427 H* Random Glucose Calcium Phosphorus Magnesium Iron TIBC % Saturation Ferritin Total Bilirubin AST ALT Alkaline Phosphatase NT-Pro-B Natriuret Pep Total Protein Albumin Globulin Albumin/Globulin Ratio Prostate Specific Ag Procalcitonin Arterial Blood Potassium 4.4 H.influenzae Type B Ag Ur L.pneumophila Ag Mycoplasma pneumon IgM N.meningitidis ACY/W135 N.meningi B/E.coli K1 Ag Group B Strep Antigen S. pneumoniae Antigen Assessment & Plan - Assessment and Plan (Free Text) Assessment: Patient seen and evaluated personally by me. Plan of care d/w the medical re sident and as documented
[2018-04-08] MEDS ORDERED: (Novolin R) Insulin Human Regular 100 units/ml vial ONE (14:00)
--- NOTE | 2018-04-08 14:57 | CP.PCM.PN ---
Subjective - Date & Time of Evaluation Date of Evaluation: 04/08/18 Time of Evaluation: 14:10 - Subjective Subjective: Medical attending note Patient seen, examined patient's daughter present at bedside. Patient noted to be feeling shortness of breath and associated chest congestion and abdominal pain for the past 2 weeks. Patient noted unable to come to the hospital more quickly because of cold weather which is exacerbating his low back pain. Today he feels somewhat okay. He still feels short of breath at bedside. Patient has completed CAT scans echo and x-rays between yesterday today. Patient reports he did have a bowel movement this morning unclear what color patient reports he has a bowel movement daily. Patient reports he did have a colonoscopy about 1-2 years ago results. Patient is a patient of Dr. Nikolay Malagon's I did call his office awaiting callback. Prior hemoglobin from February was 8.7. Objective - Vital Signs/Intake and Output Vital Signs (last 24 hours): Temp Pulse Resp BP Pulse Ox 98.8 F 58 L 18 147/56 L 100 04/08/18 02:43 04/08/18 02:57 04/08/18 02:57 04/08/18 10:23 04/08/18 05:24 - Medications Medications: Current Medications Dextrose (Dextrose 50% Inj) 0 ml IV STAT PRN; Protocol PRN Reason: Hypoglycemia Protocol Dextrose (Glutose 15) 0 gm PO ONCE PRN; Protocol PRN Reason: Hypoglycemia Protocol Finasteride (Proscar) 5 mg PO DAILY [facility] Last Admin: 04/08/18 14:44 Dose: 5 mg Furosemide (Lasix) 20 mg IVP BID [facility] Glucagon (Glucagen Diagnostic Kit) 0 mg IM STAT PRN; Protocol PRN Reason: Hypoglycemia Protocol Dextrose (Dextrose 5% In Water 1000 Ml) 1,000 mls @ 0 mls/hr IV .Q0M PRN; Protocol PRN Reason: Hypoglycemia Protocol Insulin Aspart (Novolog) 4 unit SC ACHS [facility] Last Admin: 04/08/18 14:43 Dose: 4 unit Insulin Glargine (Lantus) 45 unit SC HS [facility] Insulin Human Regular (Novolin R) 0 unit SC ACHS [facility]; Protocol Last Admin: 04/08/18 13:51 Dose: 2 unit Lisinopril (Zestril) 40 mg PO DAILY [facility] Last Admin: 04/08/18 10:25 Dose: 40 mg Metoprolol Succinate (Toprol Xl) 100 mg PO DAILY [facility] Last Admin: 04/08/18 10:25 Dose: 100 mg Pantoprazole Sodium (Protonix Inj) 40 mg IVP Q12H [facility] Pneumococcal Polyvalent Vaccine (Pneumovax 23 Vaccine) 0.5 ml IM .ONCE ONE Stop: 04/10/18 10:01 Tamsulosin HCl (Flomax) 0.4 mg PO DAILY [facility] Last Admin: 04/08/18 10:23 Dose: 0.4 mg - Labs Labs: 04/08/18 03:06 04/08/18 03:06 PT 12.2 SECONDS (9.7-12.2) 04/08/18 03:06 INR 1.1 04/08/18 03:06 APTT 31 SECONDS (21-34) 04/08/18 03:06 - Constitutional Appears: Non-toxic, No Acute Distress - Head Exam Additional comments: short neck Morbidly obesity - Eye Exam Eye Exam: EOMI, PERRL - ENT Exam ENT Exam: Mucous Membranes Dry - Respiratory Exam Respiratory Exam: Decreased Breath Sounds, Rales, NORMAL BREATHING PATTERN - Cardiovascular Exam Cardiovascular Exam: REGULAR RHYTHM, +S1, +S2 - GI/Abdominal Exam GI & Abdominal Exam: Distended (obese habitus), Soft, Normal Bowel Sounds. absent: Firm, Guarding, Rigid, Tenderness, Rebound - Extremities Exam Extremities Exam: absent: Pedal Edema, Tenderness - Neurological Exam Neurological Exam: Alert, Awake, Oriented x3 - Skin Skin Exam: Dry, Intact, Normal Color, Warm Assessment and Plan (1) Shortness of breath Status: Acute (2) Congestive heart failure Status: Acute (3) Iron deficiency anemia Status: Acute (4) BPH (benign prostatic hyperplasia) Status: Acute (5) Diabetes Status: Acute (6) Prophylactic measure Status: Acute Attending/Attestation - Attestation I have personally seen and examined this patient.: Yes I have fully participated in the care of the patient.: Yes I have reviewed all pertinent clinical information, including history, physical exam and plan: Yes Notes (Text): 1. Shortness of Breathe * Multifactorial including iron deficiency anemia, congestive heart failure * Cardiology, pulmonary, and gi on board 2. Iron Deficiency Anemia * Patient's heme-onc: Dr. Malagon-->awaiting call back * Ferritin: low, iron: low, High TIBC, high reticulocyte count, elevated RDW * Prior hgb: 8.7 in Feb 2018 * pending occult blood * Patient taking Motrin as outpatient for low back pain; and plavix but unclear why * Gi consult to eval for possible gi bleed * given ferritin * Patient reports he has had a colonoscopy 1-2 years ago 3. Elevated Lipase * CAT scan awaiting final read. Mild irregularity of the liver, probable chronic parenchymal liver disease. Benign simple left hepatic lobe cyst. Uncomplicated colonic diverticulosis. Minimal left pleural effusion. Mild right pleural effusion. Passive left airspace disease of both lower lobes. Prostatomegaly. Mild diffuse thickening of the bladder. However secondary to chronic bladder outlet obstruction. Unremarkable CT evaluation of the pancreas. * Patient clinically does not look like he has acute pancreatitis. Belly is benign on exam. 4. Low back pain * Lumbar xray: Mild degenerative change. No acute findings. 5. Congestive Heart Failure * Cardiology (Dr. Andrade) transition of care specialist->help appreciated * Chest xray: CHF/cardiomegaly * CT Chest: pending read * Echo pending * Lasix 20mg IVP BID * Lisinopril 40mg PO daily * Toprol XL 100mg PO daily * Daily weight * Intake and outputs * Aspirin off given anemia 6. Diabetes * hgba1c: 8.7 * Novolog 4 unit subq ACHS * Lantus 45 unit subq HS * Hypoglycemic protocol 7. Enlarged Prostate * Flomax 0.4mg PO Daily * Proscar 5mg PO daily 9. Hypertension * Lasix 20mg IVP BID * Lisinopril 40mg PO daily * Toprol XL 100mg PO daily 10. Prophylactic measure * Protonix 40mg [id number] * Hold anticoagulation given anemia Follow-up: official reads on CT scans; f/u cardiology/gi/pulm eval; awaiting call back from PMD for further history
--- NOTE | 2018-04-08 15:06 | CT ---
Date of service: 04/08/2018 PROCEDURE: CT Abdomen and Pelvis with Oral contrast. HISTORY: Elevated lipase COMPARISON: Prior study available for comparison. TECHNIQUE: Contiguous axial images of the abdomen and pelvis following intravenous injection of approximately 100 cc Visipaque 320 contrast material. Additional 2D sagittal and coronal sagittal reformats generated. Radiation dose: Total exam DLP = 1133.58 mGy-cm. This CT exam was performed using one or more of the following dose reduction techniques: Automated exposure control, adjustment of the mA and/or kV according to patient size, and/or use of iterative reconstruction technique. FINDINGS: LOWER THORAX: There is a small right-sided effusion with minimal right basilar atelectasis. Trace left-sided effusion Heart is enlarged. There is a small pericardial effusion. Small hiatal hernia. LIVER: The liver is of borderline/mildly enlarged measuring nearly 19 cm in CC dimension. Mild diffuse fatty hepatic infiltration.. There is several small low-attenuation foci seen in the superior aspect of the right and left lobes of the liver, the largest of which is located in the left lobe measuring approximately 10.4 mm elliptical which exhibits exhibits Hounsfield units in the mid teens. Findings likely represent a hepatic cyst. Suspect minimal fatty hepatic infiltration.. The other foci too small to characterize though could represent small cysts as well. Portal and splenic veins are opacified. Trace anterior perihepatic ascites. GALLBLADDER AND BILE DUCTS: Gallbladder incompletely distended. No obvious intraluminal gallbladder calculi. The PANCREAS: Unremarkable. No mass. No ductal dilatation. The pancreas is slightly atrophic and fatty replaced. There is a small approximately 7.4 mm elliptical shaped low-attenuation lesion posterior aspect mid body of the pancreas which exhibits Hounsfield units ranging from minus single to mid -35 digits.. Findings could represent a small cyst. The possibility of a benign or malignant cystic neoplasm not completely excluded. Follow-up CT scan at 3 month interval could be performed to assess stability. SPLEEN: The spleen exhibits normal size and attenuation pattern without masses collections or calcifications. ADRENALS: Slightly nodular appearing adrenal glands.. KIDNEYS AND URETERS: The kidneys demonstrate relatively symmetric nephrograms. No evidence of nephrolithiasis or hydronephrosis. BLADDER: The urinary bladder is incompletely distended which in part accounts for thick-walled appearance. Muscular hypertrophy presumably contributes.. Consider correlation with urinalysis recommended to exclude cystitis or other intrinsic/invasive wall lesion. REPRODUCTIVE: Prostate gland measures approximately 4.8 cm in transverse dimension. Prostatic calcification present. Findings likely due to BPH however correlation with PSA recommended. APPENDIX: Normal appendix. BOWEL: Evaluation of the bowel is limited due to the lack of oral contrast material. Stomach is incompletely distended with slight thick-walled appearance. Visualized loops of small bowel exhibit relatively normal contour and caliber without evidence of acute mechanical small bowel obstruction. The stool and air seen throughout the large bowel. There appears to be a few scattered colonic diverticula along the sigmoid colon which is somewhat redundant however no evidence to suggest acute diverticulitis. PERITONEUM: Unremarkable. No fluid collection. No free air. LYMPH NODES: Unremarkable. No enlarged lymph nodes. VASCULATURE: Unremarkable. No aortic aneurysm. Minimal aortic atherosclerotic calcification or mural plaque present. BONES: [id number] multilevel degenerative spondylosis of the and lower thoracic and lumbar spine. No acute compression fractures no retropulsed fragments. OTHER FINDINGS: Note made of a small lipoma within the proximal lateral hip musculature likely the tensor facia sivakumar muscle) IMPRESSION: Small right-sided effusion with mild right basilar atelectasis. Trace left effusion with minimal left basilar atelectasis. Cardiomegaly with small pericardial effusion. Several low-attenuation foci seen scattered throughout the hepatic parenchyma likely representing small cysts as above. Follow-up interval recommended. The slightly nodular appearing adrenal glands. Urinary bladder wall thickening likely due to incomplete distention and muscular hypertrophy however correlation with urinalysis recommended to exclude cystitis or other intrinsic abnormality as above.
--- NOTE | 2018-04-08 15:33 | CT ---
Date of service: 04/08/2018 PROCEDURE: CT Chest without contrast HISTORY: Infiltrate vs effusion, dyspnea on exertion, cough COMPARISON: Comparison made with prior CT abdomen and pelvis earlier same day. TECHNIQUE: Contiguous axial images were obtained through the chest without intravenous contrast enhancement. Sagittal and coronal reconstructions were performed. Radiation dose: Total exam DLP = 910.37 mGy-cm. This CT exam was performed using one or more of the following dose reduction techniques: Automated exposure control, adjustment of the mA and/or kV according to patient size, and/or use of iterative reconstruction technique. FINDINGS: LUNGS: There a small right-sided effusion with minor right basilar atelectasis. Trace left effusion and minimal left basilar atelectasis. Mild pulmonary venous congestive changes are present. There is a small somewhat triangular-shaped nodular opacity in the right middle lobe that measures approximately 4.2 mm. There is also a subjacent slightly more inferiorly located 5 mm nodular opacity. MEDIASTINUM: Cardiomegaly. Small pericardial effusion. Ascending thoracic aorta measures approximately 3.0 cm and descending thoracic aorta measures approximately 2.6 cm. Pulmonary trunk measures approximately 2.5 cm. Minor calcified atherosclerotic plaque thoracic aorta. Trachea midline and patent with no large central endoluminal lesions. There is a small hiatal hernia. There are a few small nonspecific mediastinal, the largest right upper pretracheal lymph node measuring approximately 15 mm. Evaluation for hilar adenopathy limited due to the lack of circulating intravenous contrast material. PLEURA: No pleural fluid. No pneumothorax. BONES: Mild multilevel degenerative spondylosis of the thoracic spine. There are no acute compression fractures no retropulsed fragments. UPPER ABDOMEN: Redemonstrated is a small amount of perihepatic ascites. Several previously noted low-attenuation foci scattered throughout the hepatic parenchyma less well seen on this study due to the lack of circulating intravenous contrast material; please refer for [address] scan abdomen pelvis and corresponding report for additional details. OTHER FINDINGS: None. IMPRESSION: There a small right-sided effusion with minor right basilar atelectasis. Trace left effusion and minimal left basilar atelectasis. Mild pulmonary venous congestive changes are present. There is a small somewhat triangular-shaped nodular opacity in the right middle lobe that measures approximately 4.2 mm. There is also a subjacent slightly more inferiorly located 5 mm nodular opacity. Cardiomegaly with small pericardial effusion. Small amount of perihepatic ascites again noted.
--- NOTE | 2018-04-08 16:08 | CP.PCM.CON ---
History of Present Illness - History of Present Illness History of Present Illness: Mr. Junior is a romansh-speaking 82yo M with PMHx significant for DM and HTN who presented to the ED with complaints of chest pain and shortness of breath x 1-2 weeks. Patient states that he has had this vague chest discomfort with periods of cough and SOB that has been episodic over the past year. Over the last 1-2 weeks, these symptoms have become persistent and have worsened in severity which have prompted him to come in for further evaluation. He states that the pain is felt across the entire lower chest. He reports a productive cough with thick yellow/green sputum and dyspnea on exertion (10-15 blocks) in association. Addit ionally, patient reports paroxysmal nocturnal dyspnea on some nights. He denies any prior h/o asthma/COPD and he never smoked. He denies any family history of lung issues, or occupational hazards in the past. Patient currently denies any fever, chills, nausea, vomiting, abdominal pain or hemoptysis. No other complaints are noted at this time. ROS: (+) chest pain, shortness of breath, cough, paroxysmal nocturnal dyspnea, dyspnea on exertion, arthritic pain All other systems are negative unless stated in HPI PMHx: DM, HTN, BPH, osteoarthritis PSHx: Denies Code status: Full code Social Hx: Denies use of tobacco or EtOH Allergies: NKDA Home Medications: Torsemide 5mg, Toprol XL 100mg, Novolog, Finasteride 5mg, Metformin, Lisinopril 40mg, Flomax 0.4mg Exam: Vitals: O2: 100% on RA, T: 98.8 BP: 158/69 HR: 58 RR: 18 Gen: No acute distress. AAOx3. Obese habitus. HEENT: Moist mucosa. Non-tender sinuses Card: RRRR. Lungs: No tachpnea or respiratory distress. Symmetric chest excursions. CTA bilaterally. No wheezing, rales or rhonchi. Abd: Soft, non-distended. Normal bowel sounds. No tenderness to palpation. Ext: No leg swelling noted. (+) Dry, scaly skin to the lower extremities noted. A&P Summary: Mr. Junior is a 82yo M with h/o DM and HTN, who presents with chest discomfort, cough and SOB that has been on-and-off over the past year. These symptoms worsened in severity and continued to persist over the last 1-2 weeks. He denies any h/o asthma/COPD or smoking. Denies any occupation hazard or family history of lung conditions. He currently takes anti-hypertensives and insulin. CXR today reveals pulmonary venous congestion and cardiomegaly. pro-BNP was within normal range at 522. I agree with primary team's assessment that patient's presentation is concerning for cardiopulmonary etiology. Will continue to follow patient pending 1. 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 - Continue Mindi and shirley Past Patient History - Past Medical History & Family History Past Medical History?: Yes - Past Social History Smoking Status: Never Smoked - CARDIAC Hx Hypertension: Yes - PULMONARY Hx Respiratory Disorders: No - NEUROLOGICAL Hx Neurological Disorder: No - HEENT Hx HEENT Problems: No - RENAL Hx Chronic Kidney Disease: No - ENDOCRINE/METABOLIC Hx Diabetes Mellitus Type 2: Yes - HEMATOLOGICAL/ONCOLOGICAL Hx Blood Disorders: No - INTEGUMENTARY Hx Dermatological Problems: No - MUSCULOSKELETAL/RHEUMATOLOGICAL Hx Musculoskeletal Disorders: No Hx Falls: Yes - GASTROINTESTINAL Hx Gastrointestinal Disorders: No - GENITOURINARY/GYNECOLOGICAL Hx Prostate Problems: Yes - PSYCHIATRIC Hx Substance Use: No - SURGICAL HISTORY Hx Surgeries: No - ANESTHESIA Hx Anesthesia: No Meds Allergies/Adverse Reactions: Allergies Allergy/AdvReac Type Severity Reaction Status Date / Time No Known Allergies Allergy Verified 04/08/18 02:48 - Medications Medications: Current Medications Albuterol/Ipratropium (Duoneb 3 Mg/0.5 Mg (3 Ml) Ud) 3 ml INH RQ6 SUSANNA Dextrose (Dextrose 50% Inj) 0 ml IV STAT PRN; Protocol PRN Reason: Hypoglycemia Protocol Dextrose (Glutose 15) 0 gm PO ONCE PRN; Protocol PRN Reason: Hypoglycemia Protocol Finasteride (Proscar) 5 mg PO DAILY [facility] Last Admin: 04/08/18 14:44 Dose: 5 mg Furosemide (Lasix) 20 mg IVP BID SUSANNA Glucagon (Glucagen Diagnostic Kit) 0 mg IM STAT PRN; Protocol PRN Reason: Hypoglycemia Protocol Dextrose (Dextrose 5% In Water 1000 Ml) 1,000 mls @ 0 mls/hr IV .Q0M PRN; Protocol PRN Reason: Hypoglycemia Protocol Insulin Aspart (Novolog) 4 unit SC [facility] Last Admin: 04/08/18 14:43 Dose: 4 unit Insulin Glargine (Lantus) 45 unit SC HS [facility] Insulin Human Regular (Novolin R) 0 unit SC ACHS [facility]; Protocol Last Admin: 04/08/18 13:51 Dose: 2 unit Lisinopril (Zestril) 40 mg PO DAILY [facility] Last Admin: 04/08/18 10:25 Dose: 40 mg Metoprolol Succinate (Toprol Xl) 100 mg PO DAILY [facility] Last Admin: 04/08/18 10:25 Dose: 100 mg Pantoprazole Sodium (Protonix Inj) 40 mg IVP Q12H [facility] Pneumococcal Polyvalent Vaccine (Pneumovax 23 Vaccine) 0.5 ml IM .ONCE ONE Stop: 04/10/18 10:01 Tamsulosin HCl (Flomax) 0.4 mg PO DAILY [facility] Last Admin: 04/08/18 10:23 Dose: 0.4 mg Results - Vital Signs Recent Vital Signs: Last Vital Signs Temp 98.3 F 04/08/18 14:00 Pulse 60 04/08/18 14:00 Resp 16 04/08/18 14:00 BP 116/53 L 04/08/18 14:00 Pulse Ox 100 04/08/18 14:00 - Labs Result Diagrams: 04/08/18 03:06 04/08/18 03:06 Labs: Laboratory Results - last 24 hr 04/08/18 04/08/18 04/08/18 03:06 03:06 03:06 WBC 9.9 RBC 3.91 L Hgb 8.0 L D Hct 26.7 L MCV 68.3 L D MCH 20.6 L MCHC 30.1 L RDW 18.1 H Plt Count 294 MPV 7.9 Neut % (Auto) 63.2 Lymph % (Auto) 23.9 Citrus % (Auto) 8.5 Eos % (Auto) 3.5 Baso % (Auto) 0.9 Neut # (Auto) 6.2 Lymph # (Auto) 2.4 Citrus # (Auto) 0.8 Eos # (Auto) 0.3 Baso # (Auto) 0.1 Retic Count PT 12.2 INR 1.1 APTT 31 Sodium 126 L Potassium 4.4 Chloride 93 L Carbon Dioxide 28 Anion Gap 10 BUN 17 Creatinine 0.6 L Est GFR ( Amer) > 60 Est GFR (Non-Af Amer) > 60 POC Glucose (mg/dL) Random Glucose 78 D Hemoglobin A1c Serum Osmolality Calcium 8.0 L Iron TIBC Ferritin Total Bilirubin 0.5 AST 50 ALT 30 Alkaline Phosphatase 122 Troponin I < 0.0120 NT-Pro-B Natriuret Pep 522 Total Protein 6.7 Albumin 3.6 Globulin 3.2 Albumin/Globulin Ratio 1.1 Triglycerides Cholesterol LDL Cholesterol Direct HDL Cholesterol Lipase 330 H 04/08/18 04/08/18 04/08/18 10:03 11:28 11:28 WBC RBC Hgb Hct MCV MCH MCHC RDW Plt Count MPV Neut % (Auto) Lymph % (Auto) Citrus % (Auto) Eos % (Auto) Baso % (Auto) Neut # (Auto) Lymph # (Auto) Citrus # (Auto) Eos # (Auto) Baso # (Auto) Retic Count PT INR APTT Sodium Potassium Chloride Carbon Dioxide Anion Gap BUN Creatinine Est GFR ( Amer) Est GFR (Non-Af Amer) POC Glucose (mg/dL) 128 H Random Glucose Hemoglobin A1c Serum Osmolality Calcium Iron 21 L TIBC 502 H Ferritin 5.7 Total Bilirubin AST ALT Alkaline Phosphatase Troponin I NT-Pro-B Natriuret Pep Total Protein Albumin Globulin Albumin/Globulin Ratio Triglycerides 120 Cholesterol 150 LDL Cholesterol Direct 94 HDL Cholesterol 36 Lipase 04/08/18 04/08/18 04/08/18 11:28 11:28 11:28 WBC RBC Hgb Hct MCV MCH MCHC RDW Plt Count MPV Neut % (Auto) Lymph % (Auto) Citrus % (Auto) Eos % (Auto) Baso % (Auto) Neut # (Auto) Lymph # (Auto) Citrus # (Auto) Eos # (Auto) Baso # (Auto) Retic Count 2.3 H PT INR APTT Sodium Potassium Chloride Carbon Dioxide Anion Gap BUN Creatinine Est GFR ( Amer) Est GFR (Non-Af Amer) POC Glucose (mg/dL) Random Glucose Hemoglobin A1c 8.7 H Serum Osmolality 276 Calcium Iron TIBC Ferritin Total Bilirubin AST ALT Alkaline Phosphatase Troponin I NT-Pro-B Natriuret Pep Total Protein Albumin Globulin Albumin/Globulin Ratio Triglycerides Cholesterol LDL Cholesterol Direct HDL Cholesterol Lipase 04/08/18 12:43 WBC RBC Hgb Hct MCV MCH MCHC RDW Plt Count MPV Neut % (Auto) Lymph % (Auto) Citrus % (Auto) Eos % (Auto) Baso % (Auto) Neut # (Auto) Lymph # (Auto) Citrus # (Auto) Eos # (Auto) Baso # (Auto) Retic Count PT INR APTT Sodium Potassium Chloride Carbon Dioxide Anion Gap BUN Creatinine Est GFR ( Amer) Est GFR (Non-Af Amer) POC Glucose (mg/dL) 163 H Random Glucose Hemoglobin A1c Serum Osmolality Calcium Iron TIBC Ferritin Total Bilirubin AST ALT Alkaline Phosphatase Troponin I NT-Pro-B Natriuret Pep Total Protein Albumin Globulin Albumin/Globulin Ratio Triglycerides Cholesterol LDL Cholesterol Direct HDL Cholesterol Lipase
--- NOTE | 2018-04-08 16:15 | CP.PCM.CON ---
History of Present Illness - History of Present Illness History of Present Illness: ASked now to see pt for anemia. Pt presents with weakness, CP, SOB. Saughter is present. Pt seen with RN Reports inc abdom girth x 2 months. Reprots 2 weeks- increased SOB ands ROJAS. Denies wt loss, const, RB, melena,. Reports xolonosocpy 2 yrs ago. PMD- DR Maggy Malagon. Review of Systems - Constitutional Constitutional: Fatigue, Weakness. absent: Weight Gain, Weight Loss - EENT Eyes: absent: Photophobia Nose/Mouth/Throat: absent: Mouth Lesions - Cardiovascular Cardiovascular: Chest Pain, Dyspnea, Dyspnea on Exertion - Respiratory Respiratory: absent: Hemoptysis, Wheezing - Gastrointestinal Gastrointestinal: Bloating. absent: Abdominal Pain, Coffee Ground Emesis, Constipation, Diarrhea, Dysphagia, Hematemesis, Hematochezia, Loose Stools, Melena, Nausea, Odynophagia, Vomiting - Genitourinary Genitourinary: absent: Hematuria - Musculoskeletal Musculoskeletal: absent: Muscle Cramps - Integumentary Integumentary: absent: Jaundice - Neurological Neurological: absent: Convulsions, Tingling Past Patient History - Past Medical History & Family History Past Medical History?: Yes - Past Social History Smoking Status: Never Smoked - CARDIAC Hx Hypertension: Yes - PULMONARY Hx Respiratory Disorders: No - NEUROLOGICAL Hx Neurological Disorder: No - HEENT Hx HEENT Problems: No - RENAL Hx Chronic Kidney Disease: No - ENDOCRINE/METABOLIC Hx Diabetes Mellitus Type 2: Yes - HEMATOLOGICAL/ONCOLOGICAL Hx Blood Disorders: No - INTEGUMENTARY Hx Dermatological Problems: No - MUSCULOSKELETAL/RHEUMATOLOGICAL Hx Musculoskeletal Disorders: No Hx Falls: Yes - GASTROINTESTINAL Hx Gastrointestinal Disorders: No - GENITOURINARY/GYNECOLOGICAL Hx Prostate Problems: Yes - PSYCHIATRIC Hx Substance Use: No - SURGICAL HISTORY Hx Surgeries: No - ANESTHESIA Hx Anesthesia: No Meds Allergies/Adverse Reactions: Allergies Allergy/AdvReac Type Severity Reaction Status Date / Time No Known Allergies Allergy Verified 04/08/18 02:48 - Medications Medications: Current Medications Albuterol/Ipratropium (Duoneb 3 Mg/0.5 Mg (3 Ml) Ud) 3 ml INH RQ6 SUSANNA Dextrose (Dextrose 50% Inj) 0 ml IV STAT PRN; Protocol PRN Reason: Hypoglycemia Protocol Dextrose (Glutose 15) 0 gm PO ONCE PRN; Protocol PRN Reason: Hypoglycemia Protocol Finasteride (Proscar) 5 mg PO DAILY [facility] Last Admin: 04/08/18 14:44 Dose: 5 mg Furosemide (Lasix) 20 mg IVP BID [facility] Glucagon (Glucagen Diagnostic Kit) 0 mg IM STAT PRN; Protocol PRN Reason: Hypoglycemia Protocol Dextrose (Dextrose 5% In Water 1000 Ml) 1,000 mls @ 0 mls/hr IV .Q0M PRN; Protocol PRN Reason: Hypoglycemia Protocol Insulin Aspart (Novolog) 4 unit SC [facility] Last Admin: 04/08/18 14:43 Dose: 4 unit Insulin Glargine (Lantus) 45 unit SC HS [facility] Insulin Human Regular (Novolin R) 0 unit SC ACHS [facility]; Protocol Last Admin: 04/08/18 13:51 Dose: 2 unit Lisinopril (Zestril) 40 mg PO DAILY [facility] Last Admin: 04/08/18 10:25 Dose: 40 mg Metoprolol Succinate (Toprol Xl) 100 mg PO DAILY [facility] Last Admin: 04/08/18 10:25 Dose: 100 mg Pantoprazole Sodium (Protonix Inj) 40 mg IVP Q12H [facility] Pneumococcal Polyvalent Vaccine (Pneumovax 23 Vaccine) 0.5 ml IM .ONCE ONE Stop: 04/10/18 10:01 Tamsulosin HCl (Flomax) 0.4 mg PO DAILY [facility] Last Admin: 04/08/18 10:23 Dose: 0.4 mg Physical Exam - Constitutional Appears: Non-toxic - Neck Exam Neck exam: Negative for: Tenderness - Respiratory Exam Respiratory Exam: Rales - Cardiovascular Exam Cardiovascular Exam: Bradycardia - GI/Abdominal Exam GI & Abdominal Exam: Normal Bowel Sounds, Soft. absent: Guarding, Mass, Rebound, Tenderness - Extremities Exam Extremities exam: Positive for: pedal edema - Neurological Exam Neurological exam: Alert, Oriented x3 - Psychiatric Exam Psychiatric exam: Normal Affect Results - Vital Signs Recent Vital Signs: Last Vital Signs Temp 98.3 F 04/08/18 14:00 Pulse 60 04/08/18 14:00 Resp 16 04/08/18 14:00 BP 116/53 L 04/08/18 14:00 Pulse Ox 100 04/08/18 14:00 - Labs Result Diagrams: 04/08/18 03:06 04/08/18 03:06 Labs: Laboratory Results - last 24 hr 04/08/18 04/08/18 04/08/18 03:06 03:06 03:06 WBC 9.9 RBC 3.91 L Hgb 8.0 L D Hct 26.7 L MCV 68.3 L D MCH 20.6 L MCHC 30.1 L RDW 18.1 H Plt Count 294 MPV 7.9 Neut % (Auto) 63.2 Lymph % (Auto) 23.9 Coffee % (Auto) 8.5 Eos % (Auto) 3.5 Baso % (Auto) 0.9 Neut # (Auto) 6.2 Lymph # (Auto) 2.4 Coffee # (Auto) 0.8 Eos # (Auto) 0.3 Baso # (Auto) 0.1 Retic Count PT 12.2 INR 1.1 APTT 31 Sodium 126 L Potassium 4.4 Chloride 93 L Carbon Dioxide 28 Anion Gap 10 BUN 17 Creatinine 0.6 L Est GFR ( Amer) > 60 Est GFR (Non-Af Amer) > 60 POC Glucose (mg/dL) Random Glucose 78 D Hemoglobin A1c Serum Osmolality Calcium 8.0 L Iron TIBC Ferritin Total Bilirubin 0.5 AST 50 ALT 30 Alkaline Phosphatase 122 Troponin I < 0.0120 NT-Pro-B Natriuret Pep 522 Total Protein 6.7 Albumin 3.6 Globulin 3.2 Albumin/Globulin Ratio 1.1 Triglycerides Cholesterol LDL Cholesterol Direct HDL Cholesterol Lipase 330 H 04/08/18 04/08/18 04/08/18 10:03 11:28 11:28 WBC RBC Hgb Hct MCV MCH MCHC RDW Plt Count MPV Neut % (Auto) Lymph % (Auto) Coffee % (Auto) Eos % (Auto) Baso % (Auto) Neut # (Auto) Lymph # (Auto) Coffee # (Auto) Eos # (Auto) Baso # (Auto) Retic Count PT INR APTT Sodium Potassium Chloride Carbon Dioxide Anion Gap BUN Creatinine Est GFR ( Amer) Est GFR (Non-Af Amer) POC Glucose (mg/dL) 128 H Random Glucose Hemoglobin A1c Serum Osmolality Calcium Iron 21 L TIBC 502 H Ferritin 5.7 Total Bilirubin AST ALT Alkaline Phosphatase Troponin I NT-Pro-B Natriuret Pep Total Protein Albumin Globulin Albumin/Globulin Ratio Triglycerides 120 Cholesterol 150 LDL Cholesterol Direct 94 HDL Cholesterol 36 Lipase 04/08/18 04/08/18 04/08/18 11:28 11:28 11:28 WBC RBC Hgb Hct MCV MCH MCHC RDW Plt Count MPV Neut % (Auto) Lymph % (Auto) Coffee % (Auto) Eos % (Auto) Baso % (Auto) Neut # (Auto) Lymph # (Auto) Coffee # (Auto) Eos # (Auto) Baso # (Auto) Retic Count 2.3 H PT INR APTT Sodium Potassium Chloride Carbon Dioxide Anion Gap BUN Creatinine Est GFR ( Amer) Est GFR (Non-Af Amer) POC Glucose (mg/dL) Random Glucose Hemoglobin A1c 8.7 H Serum Osmolality 276 Calcium Iron TIBC Ferritin Total Bilirubin AST ALT Alkaline Phosphatase Troponin I NT-Pro-B Natriuret Pep Total Protein Albumin Globulin Albumin/Globulin Ratio Triglycerides Cholesterol LDL Cholesterol Direct HDL Cholesterol Lipase 04/08/18 12:43 WBC RBC Hgb Hct MCV MCH MCHC RDW Plt Count MPV Neut % (Auto) Lymph % (Auto) Coffee % (Auto) Eos % (Auto) Baso % (Auto) Neut # (Auto) Lymph # (Auto) Coffee # (Auto) Eos # (Auto) Baso # (Auto) Retic Count PT INR APTT Sodium Potassium Chloride Carbon Dioxide Anion Gap BUN Creatinine Est GFR ( Amer) Est GFR (Non-Af Amer) POC Glucose (mg/dL) 163 H Random Glucose Hemoglobin A1c Serum Osmolality Calcium Iron TIBC Ferritin Total Bilirubin AST ALT Alkaline Phosphatase Troponin I NT-Pro-B Natriuret Pep Total Protein Albumin Globulin Albumin/Globulin Ratio Triglycerides Cholesterol LDL Cholesterol Direct HDL Cholesterol Lipase Assessment & Plan (1) Hyponatremia Status: Acute (2) BPH (benign prostatic hyperplasia) Status: Acute (3) Chest pain Status: Acute (4) Congestive heart failure Status: Acute (5) ROJAS (dyspnea on exertion) Status: Acute (6) Diabetes Status: Acute (7) Iron deficiency anemia Assessment and Plan: Drop in Hb over 3 months from 11. Denies overt GI bleeding. Reprots neg colonosocpy 1-2 yrs ago. Consdier PUD, ectasia, hematologic causes. Rec- PPI, check OB, check Hb, hematology f/u. Pt is not stable for GI scopes. Status: Acute (8) Shortness of breath Status: Acute
--- NOTE | 2018-04-08 16:22 | CP.PCM.PN ---
<Stevenson Paredes - Last Filed: 04/08/18 16:20> Subjective - Date & Time of Evaluation Date of Evaluation: 04/08/18 Time of Evaluation: 16:20 - Subjective Subjective: PGY-1 Medicine Progress Note for Dr. Foreman's service S/E at bedside. Reports whitmore and cough. Reports back pain and knee pain. Denies fevers, chills, chest pain, sob at rest, n/v, constipation or diarrhea, and dysuria. Objective - Vital Signs/Intake and Output Vital Signs (last 24 hours): Temp Pulse Resp BP Pulse Ox 98.3 F 60 16 116/53 L 100 04/08/18 14:00 04/08/18 14:00 04/08/18 14:00 04/08/18 14:00 04/08/18 14:00 - Medications Medications: Current Medications Albuterol/Ipratropium (Duoneb 3 Mg/0.5 Mg (3 Ml) Ud) 3 ml INH RQ6 [facility] Dextrose (Dextrose 50% Inj) 0 ml IV STAT PRN; Protocol PRN Reason: Hypoglycemia Protocol Dextrose (Glutose 15) 0 gm PO ONCE PRN; Protocol PRN Reason: Hypoglycemia Protocol Finasteride (Proscar) 5 mg PO DAILY [facility] Last Admin: 04/08/18 14:44 Dose: 5 mg Furosemide (Lasix) 20 mg IVP BID [facility] Glucagon (Glucagen Diagnostic Kit) 0 mg IM STAT PRN; Protocol PRN Reason: Hypoglycemia Protocol Dextrose (Dextrose 5% In Water 1000 Ml) 1,000 mls @ 0 mls/hr IV .Q0M PRN; Protocol PRN Reason: Hypoglycemia Protocol Insulin Aspart (Novolog) 4 unit SC [facility] Last Admin: 04/08/18 14:43 Dose: 4 unit Insulin Glargine (Lantus) 45 unit SC HS [facility] Insulin Human Regular (Novolin R) 0 unit SC [facility]; Protocol Last Admin: 04/08/18 13:51 Dose: 2 unit Lisinopril (Zestril) 40 mg PO DAILY [facility] Last Admin: 04/08/18 10:25 Dose: 40 mg Metoprolol Succinate (Toprol Xl) 100 mg PO DAILY [facility] Last Admin: 04/08/18 10:25 Dose: 100 mg Pantoprazole Sodium (Protonix Inj) 40 mg IVP Q12H [facility] Pneumococcal Polyvalent Vaccine (Pneumovax 23 Vaccine) 0.5 ml IM .ONCE ONE Stop: 04/10/18 10:01 Tamsulosin HCl (Flomax) 0.4 mg PO DAILY [facility] Last Admin: 04/08/18 10:23 Dose: 0.4 mg - Labs Labs: 04/08/18 03:06 04/08/18 03:06 PT 12.2 SECONDS (9.7-12.2) 04/08/18 03:06 INR 1.1 04/08/18 03:06 APTT 31 SECONDS (21-34) 04/08/18 03:06 - Constitutional Appears: Non-toxic, No Acute Distress - Head Exam Head Exam: NORMAL INSPECTION, NORMOCEPHALIC - Eye Exam Eye Exam: EOMI, Normal appearance. absent: Nystagmus, Scleral icterus - ENT Exam ENT Exam: Mucous Membranes Dry - Respiratory Exam Respiratory Exam: Decreased Breath Sounds, NORMAL BREATHING PATTERN. absent: Rales, Rhonchi, Wheezes, Respiratory Distress - Cardiovascular Exam Cardiovascular Exam: REGULAR RHYTHM, +S1, +S2. absent: Tachycardia - GI/Abdominal Exam GI & Abdominal Exam: Distended, Normal Bowel Sounds. absent: Firm, Guarding, Rigid, Soft, Tenderness - Extremities Exam Extremities Exam: Normal Inspection. absent: Calf Tenderness, Pedal Edema Additional comments: b/l chonic dry skin in lower extremity - Back Exam Back Exam: NORMAL INSPECTION, paraspinal tenderness - Neurological Exam Neurological Exam: Alert, Awake, Oriented x3 - Psychiatric Exam Psychiatric exam: Normal Affect, Normal Mood - Skin Skin Exam: Dry, Intact, Normal Color Assessment and Plan - Assessment and Plan (Free Text) Assessment: Patient is an 82 year old w/ PMH of IDDM, HTN, BPH, and arthritis admitted to hospital for 2 weeks of SOB and chest pain. Admits to cold like symptoms with only one stated being a cough with whitish sputum. SOB Pulmonology Consulted: Dr. Pillai Cardiology Consulted: Dr. 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 Jason- jamie appreciated iron deficiency anemia on labs recent CSPY with normal results IDDM Glargine 45 units HS Aspart 4 units w/ meals ISS ACHS HTN Zestril 40mg po daily Metoprolol 100mg po daily BPH Finasteride 5mg po daily Flomax 0.4mg po daily PGY-1 Stevenson Reggie Case d/w Dr. Foreman <Debora Foreman V - Last Filed: 04/10/18 10:04> Objective - Vital Signs/Intake and Output Vital Signs (last 24 hours): Temp Pulse Resp BP Pulse Ox 98.5 F 78 18 179/81 H 100 04/10/18 07:45 04/10/18 07:45 04/10/18 07:45 04/10/18 09:54 04/10/18 07:45 Intake and Output: 04/10/18 04/10/18 06:59 18:59 Intake Total 260 Output Total 800 Balance -540 - Medications Medications: Current Medications Albuterol/Ipratropium (Duoneb 3 Mg/0.5 Mg (3 Ml) Ud) 3 ml INH RQ6 [facility] Last Admin: 04/10/18 08:46 Dose: Not Given Dextrose (Dextrose 50% Inj) 0 ml IV STAT PRN; Protocol PRN Reason: Hypoglycemia Protocol Dextrose (Glutose 15) 0 gm PO ONCE PRN; Protocol PRN Reason: Hypoglycemia Protocol Finasteride (Proscar) 5 mg PO DAILY [facility] Last Admin: 04/10/18 09:53 Dose: 5 mg Furosemide (Lasix) 20 mg IVP DAILY [facility] Last Admin: 04/10/18 09:54 Dose: 20 mg Glucagon (Glucagen Diagnostic Kit) 0 mg IM STAT PRN; Protocol PRN Reason: Hypoglycemia Protocol Dextrose (Dextrose 5% In Water 1000 Ml) 1,000 mls @ 0 mls/hr IV .Q0M PRN; Protocol PRN Reason: Hypoglycemia Protocol Piperacillin Sod/Tazobactam Sod (Zosyn 3.375 Gm Iv Premix) 3.375 gm in 50 mls @ 100 mls/hr IVPB Q6H [facility]; Protocol Last Admin: 04/10/18 06:55 Dose: 100 mls/hr Insulin Aspart (Novolog) 4 unit SC [facility] Last Admin: 04/10/18 08:35 Dose: 4 unit Insulin Glargine (Lantus) 45 unit SC HS [facility] Last Admin: 04/09/18 21:41 Dose: 45 units Insulin Human Regular (Novolin R) 0 unit SC [facility]; Protocol Last Admin: 04/10/18 08:35 Dose: 6 unit Lisinopril (Zestril) 40 mg PO DAILY [facility] Last Admin: 04/10/18 09:54 Dose: 40 mg Methylprednisolone (Solu-Medrol) 40 mg IVP Q6H [facility] Last Admin: 04/10/18 06:55 Dose: 40 mg Metoprolol Succinate (Toprol Xl) 100 mg PO DAILY [facility] Last Admin: 04/10/18 09:53 Dose: 100 mg Pantoprazole Sodium (Protonix Inj) 40 mg IVP Q12H [facility] Last Admin: 04/10/18 04:26 Dose: 40 mg Tamsulosin HCl (Flomax) 0.4 mg PO DAILY [facility] Last Admin: 04/10/18 09:54 Dose: 0.4 mg - Labs Labs: 04/10/18 07:18 04/10/18 07:18 PT 12.2 SECONDS (9.7-12.2) 04/08/18 03:06 INR 1.1 04/08/18 03:06 APTT 31 SECONDS (21-34) 04/08/18 03:06 Attending/Attestation - Attestation I have personally seen and examined this patient.: Yes I have fully participated in the care of the patient.: Yes I have reviewed all pertinent clinical information, including history, physical exam and plan: Yes Notes (Text): please refer to my note for further detail for 04/08/18. thank you.
[2018-04-08 18:00] LABS: CK-MB 2.78 ng/mL (0.0-3.38)
[2018-04-08] MEDS ORDERED: MethylPREDNISolone 40 mg Vial IVP SCH (18:00)
[2018-04-08] MEDS: MethylPREDNISolone 40 mg Vial IVP SCH (19:11)
[2018-04-08 19:16] LABS: OSMOLALITY,URINE 251 mosm/kg (300-1000)
[2018-04-08 19:17] LABS: ABG ALLEN TEST POS; ARTERIAL BLOOD GAS HCO3 26.9 mmol/L (21-28); ARTERIAL BLOOD GAS O2 SAT 99.3 % (95-98); ARTERIAL BLOOD GAS PCO2 45 mm/Hg (35-45); ARTERIAL BLOOD GAS PO2 96 mm/Hg (80-100); ARTERIAL BLOOD GAS TCO2 29.3 mmol/L (22-28)
[2018-04-08] MEDS: Albuterol-Ipratrop 3 mg / 0.5 (3 ml) UD INH SCH (19:27)
[2018-04-08] MEDS: Piperacill/Tazo 3.375gm in Dex 3.375 GM/50 ML BAG IVPB SCH (19:51)
--- NOTE | 2018-04-08 21:28 | CARD ---
APPROVED REPORT Date of service: 04/08/2018 EXAM: Two-dimensional and M-mode echocardiogram with Doppler and color Doppler. Other Information Quality : GoodRhythm : INDICATION Dyspnea Chest Pain RISK FACTORS Hypertension Diabetes 2D DIMENSIONS IVSd1.5 (0.7-1.1cm)LVDd4.2 (3.9-5.9cm) PWd1.4 (0.7-1.1cm)LA Qkksky51 (18-58mL) LVDs2.5 (2.5-4.0cm)FS (%) 40.7 % LVEF (%)71.8 (>50%)LVEF (Mazariegos's)70.14 % M-Mode DIMENSIONS Left Atrium (MM)4.84 (2.5-4.0cm)IVSd1.10 (0.7-1.1cm) Aortic Root3.41 (2.2-3.7cm)LVDd4.38 (4.0-5.6cm) Aortic Cusp Exc.2.29 (1.5-2.0cm)PWd1.02 (0.7-1.1cm) FS (%) 40 %LVDs2.61 (2.0-3.8cm) LVEF (%)71 (>50%) Mitral Valve MV E Dexwkqiy803.6cm/sMV A Qjnghxdt33.1cm/sE/A ratio1.1 TDI Lateral E' Peak V5.90cm/sMedial E' Peak V6.09cm/sE/Lateral E'17.2 E/Medial E'16.7 LEFT VENTRICLE The left ventricle is normal size. There is mild concentric left ventricular hypertrophy. The left ventricular function is normal. The left ventricular ejection fraction is within the normal range. 70% No regional wall motion abnormalities noted. The left ventricular diastolic function is indeterminate. No left ventricle thrombus noted on this study. There is no ventricular septal defect visualized. There is no left ventricular aneurysm. There is no mass noted in the left ventricle. RIGHT VENTRICLE The right ventricle is normal size. There is normal right ventricular wall thickness. The right ventricular systolic function is normal. ATRIA The left atrial volume index is moderateldy increaed. The right atrium size is normal. The interatrial septum is intact with no evidence for an atrial septal defect. AORTIC VALVE The aortic valve is normal in structure and function. No aortic regurgitation is present. There is no aortic valvular stenosis. There is no aortic valvular vegetation. MITRAL VALVE The mitral valve is normal in structure and function. There is no evidence of mitral valve prolapse. There is no mitral valve stenosis. There is no mitral valve regurgitation noted. TRICUSPID VALVE The tricuspid valve is normal in structure and function. There is mild tricuspid valve regurgitation noted. There is no tricuspid valve prolapse or vegetation. There is no tricuspid valve stenosis. PULMONIC VALVE The pulmonary valve is normal in structure and function. There is no pulmonic valvular regurgitation. There is no pulmonic valvular stenosis. GREAT VESSELS The aortic root is normal in size. The ascending aorta is normal in size. The pulmonary artery is normal. The IVC is dilated and collapses <50% with inspiration. PERICARDIAL EFFUSION The pericardium appears normal. There is no pleural effusion. <Conclusion> The left ventricular function is normal. There is mild concentric left ventricular hypertrophy. The left atrial volume index is moderateldy increaed. Normal Doppler.
[2018-04-08] MEDS: (Lantus) Insulin Glargine, Recombinant SC SCH (21:49)
[2018-04-09] MEDS: Piperacill/Tazo 3.375gm in Dex 3.375 GM/50 ML BAG IVPB SCH ×4 (01:40→20:00)
[2018-04-09] MEDS: MethylPREDNISolone 40 mg Vial IVP SCH ×4 (01:41→20:00)
[2018-04-09] MEDS: Albuterol-Ipratrop 3 mg / 0.5 (3 ml) UD INH SCH ×4 (01:51→19:25)
[2018-04-09 06:54] LABS: BASO % 0.2 % (0.0-2.0); EOS % 0.1 % (0.0-4.0); HEMOGLOBIN 8.5 g/dL (12.0-18.0); LYMPH # 1.2 K/uL (1.0-4.3); LYMPH % 11.9 % (20.0-40.0); MEAN CELL VOLUME 67.8 fL (80.0-94.0); MEAN CORPUSCULAR HEMOGLOBIN 20.9 pg (27.0-31.0); MEAN CORPUSCULAR HGB CONC 30.8 g/dL (33.0-37.0); MEAN PLATELET VOLUME 8.1 fL (7.2-11.7); MONO # 0.1 K/uL (0.0-0.8); MONO % 0.7 % (0.0-10.0); NEUT # 8.6 K/uL (1.8-7.0); NEUT % 87.1 % (50.0-75.0); NRBC % 0.1 % (0.0-2.0); RBC 4.06 Mil/uL (4.40-5.90); RED CELL DISTRIBUTION WIDTH 18.1 % (11.5-14.5); WHITE BLOOD COUNT 9.8 K/uL (4.8-10.8)
[2018-04-09] MEDS: (Novolin R) Insulin Human Regular 100 units/ml vial SC SCH ×4 (07:30→21:41)
[2018-04-09] MEDS: (Novolog) Insulin Aspart, Recombinant 100 u/ml 10 ml vial SC SCH ×4 (07:30→21:41)
[2018-04-09 07:40] LABS: ALB/GLOB RATIO 1.1 (1.0-2.1); ALBUMIN 3.7 g/dL (3.5-5.0); ALT/SGPT 39 U/L (21-72); AST/SGOT 47 U/L (17-59); BLOOD UREA NITROGEN 18 mg/dL (9-20); CALCIUM 7.9 mg/dl (8.6-10.4); GFR NON-AFRICAN AMERICAN > 60
--- NOTE | 2018-04-09 08:03 | CP.PCM.PN ---
Subjective - Date & Time of Evaluation Date of Evaluation: 04/09/18 Time of Evaluation: 08:00 - Subjective Subjective: f/u anemia on BIPAP for dyspnea Denies abdominal pain, dyspnea, constipation + black BMs Objective - Vital Signs/Intake and Output Vital Signs (last 24 hours): Temp Pulse Resp BP Pulse Ox 99.4 F 72 20 172/82 H 98 04/08/18 23:05 04/09/18 07:48 04/08/18 23:05 04/09/18 04:00 04/08/18 23:05 Intake and Output: 04/09/18 04/09/18 06:59 18:59 Intake Total 60 Output Total 375 Balance -315 - Medications Medications: Current Medications Albuterol/Ipratropium (Duoneb 3 Mg/0.5 Mg (3 Ml) Ud) 3 ml INH RQ6 [facility] Last Admin: 04/09/18 07:51 Dose: 3 ml Dextrose (Dextrose 50% Inj) 0 ml IV STAT PRN; Protocol PRN Reason: Hypoglycemia Protocol Dextrose (Glutose 15) 0 gm PO ONCE PRN; Protocol PRN Reason: Hypoglycemia Protocol Finasteride (Proscar) 5 mg PO DAILY [facility] Last Admin: 04/08/18 14:44 Dose: 5 mg Furosemide (Lasix) 20 mg IVP DAILY [facility] Glucagon (Glucagen Diagnostic Kit) 0 mg IM STAT PRN; Protocol PRN Reason: Hypoglycemia Protocol Dextrose (Dextrose 5% In Water 1000 Ml) 1,000 mls @ 0 mls/hr IV .Q0M PRN; Protocol PRN Reason: Hypoglycemia Protocol Piperacillin Sod/Tazobactam Sod (Zosyn 3.375 Gm Iv Premix) 3.375 gm in 50 mls @ 100 mls/hr IVPB Q6H [facility]; Protocol Last Admin: 04/09/18 01:40 Dose: 100 mls/hr Insulin Aspart (Novolog) 4 unit SC ACHS [facility] Last Admin: 04/08/18 21:49 Dose: 4 unit Insulin Glargine (Lantus) 45 unit SC HS [facility] Last Admin: 04/08/18 21:49 Dose: 45 units Insulin Human Regular (Novolin R) 0 unit SC ACHS [facility]; Protocol Last Admin: 04/08/18 21:20 Dose: Not Given Lisinopril (Zestril) 40 mg PO DAILY [facility] Last Admin: 04/08/18 10:25 Dose: 40 mg Methylprednisolone (Solu-Medrol) 40 mg IVP Q6H [facility] Last Admin: 04/09/18 01:41 Dose: 40 mg Metoprolol Succinate (Toprol Xl) 100 mg PO DAILY [facility] Last Admin: 04/08/18 10:25 Dose: 100 mg Pantoprazole Sodium (Protonix Inj) 40 mg IVP Q12H [facility] Last Admin: 04/09/18 04:48 Dose: 40 mg Pneumococcal Polyvalent Vaccine (Pneumovax 23 Vaccine) 0.5 ml IM .ONCE ONE Stop: 04/10/18 10:01 Tamsulosin HCl (Flomax) 0.4 mg PO DAILY [facility] Last Admin: 04/08/18 10:23 Dose: 0.4 mg - Labs Labs: 04/09/18 06:34 04/09/18 06:34 PT 12.2 SECONDS (9.7-12.2) 04/08/18 03:06 INR 1.1 04/08/18 03:06 APTT 31 SECONDS (21-34) 04/08/18 03:06 - Constitutional Appears: Well, No Acute Distress - Head Exam Head Exam: NORMOCEPHALIC - Eye Exam Eye Exam: absent: Scleral icterus - Respiratory Exam Respiratory Exam: NORMAL BREATHING PATTERN - Cardiovascular Exam Cardiovascular Exam: REGULAR RHYTHM - GI/Abdominal Exam GI & Abdominal Exam: Distended, Soft. absent: Tenderness Assessment and Plan (1) Hyponatremia Assessment & Plan: management per renal Status: Acute (2) Iron deficiency anemia Assessment & Plan: check iron studies and stool OB Too unstable (on BIPAP) to tolerate endoscopic procedures Possible melena? Keep on PPI Status: Acute (3) Shortness of breath Status: Acute
[2018-04-09 08:43] LABS: N MENINGITIS ACY/W135 NEGATIVE (NEGATIVE); N MENINGITIS B/ECOLI K1 NEGATIVE (NEGATIVE); STREP PNEUMONIAE NEGATIVE (NEGATIVE); STREPTOCOCCUS B NEGATIVE (NEGATIVE)
[2018-04-09] MEDS: Metoprolol Succinate 100 mg XL Tab PO SCH (09:36)
--- NOTE | 2018-04-09 13:58 | CARD ---
APPROVED REPORT Date of service: 04/08/2018 EKG Measurement Heart [id number] <Conclusion> sinus bradycardia.non specific st t changes. Abnormal ECG
--- NOTE | 2018-04-09 14:03 | CP.PCM.PN ---
<Tana Velasquez - Last Filed: 04/09/18 18:11> Subjective - Date & Time of Evaluation Date of Evaluation: 04/09/18 Time of Evaluation: 08:00 - Subjective Subjective: Cardiology Progress Note for Dr. Andrade: Patient was seen and examined at bedside in the AM. Patient states he feels like his breathing has slightly improved especially with the use of the BiPap machine. Patient denies chest pain, palpitations, abdominal pain, nausea, vomiting or diarrhea, Objective - Vital Signs/Intake and Output Vital Signs (last 24 hours): Temp Pulse Resp BP Pulse Ox 99.4 F 72 20 160/67 H 98 04/08/18 23:05 04/09/18 13:25 04/08/18 23:05 04/09/18 09:37 04/08/18 23:05 Intake and Output: 04/09/18 04/09/18 06:59 18:59 Intake Total 60 Output Total 375 Balance -315 - Medications Medications: Current Medications Albuterol/Ipratropium (Duoneb 3 Mg/0.5 Mg (3 Ml) Ud) 3 ml INH RQ6 [facility] Last Admin: 04/09/18 13:30 Dose: 3 ml Dextrose (Dextrose 50% Inj) 0 ml IV STAT PRN; Protocol PRN Reason: Hypoglycemia Protocol Dextrose (Glutose 15) 0 gm PO ONCE PRN; Protocol PRN Reason: Hypoglycemia Protocol Finasteride (Proscar) 5 mg PO DAILY [facility] Last Admin: 04/09/18 09:36 Dose: 5 mg Furosemide (Lasix) 20 mg IVP DAILY [facility] Last Admin: 04/09/18 09:37 Dose: 20 mg Glucagon (Glucagen Diagnostic Kit) 0 mg IM STAT PRN; Protocol PRN Reason: Hypoglycemia Protocol Dextrose (Dextrose 5% In Water 1000 Ml) 1,000 mls @ 0 mls/hr IV .Q0M PRN; Protocol PRN Reason: Hypoglycemia Protocol Piperacillin Sod/Tazobactam Sod (Zosyn 3.375 Gm Iv Premix) 3.375 gm in 50 mls @ 100 mls/hr IVPB Q6H [facility]; Protocol Last Admin: 04/09/18 12:35 Dose: 100 mls/hr Insulin Aspart (Novolog) 4 unit SC ACHS [facility] Last Admin: 04/09/18 12:37 Dose: 4 unit Insulin Glargine (Lantus) 45 unit SC [facility] Last Admin: 04/08/18 21:49 Dose: 45 units Insulin Human Regular (Novolin R) 0 unit SC [facility]; Protocol Last Admin: 04/09/18 12:37 Dose: 6 unit Lisinopril (Zestril) 40 mg PO DAILY [facility] Last Admin: 04/09/18 09:36 Dose: 40 mg Methylprednisolone (Solu-Medrol) 40 mg IVP Q6H [facility] Last Admin: 04/09/18 12:36 Dose: 40 mg Metoprolol Succinate (Toprol Xl) 100 mg PO DAILY [facility] Last Admin: 04/09/18 09:36 Dose: 100 mg Pantoprazole Sodium (Protonix Inj) 40 mg IVP Q12H [facility] Last Admin: 04/09/18 04:48 Dose: 40 mg Pneumococcal Polyvalent Vaccine (Pneumovax 23 Vaccine) 0.5 ml IM .ONCE ONE Stop: 04/10/18 10:01 Tamsulosin HCl (Flomax) 0.4 mg PO DAILY [facility] Last Admin: 04/09/18 09:36 Dose: 0.4 mg - Labs Labs: 04/09/18 06:34 04/09/18 06:34 PT 12.2 SECONDS (9.7-12.2) 04/08/18 03:06 INR 1.1 04/08/18 03:06 APTT 31 SECONDS (21-34) 04/08/18 03:06 - Constitutional Appears: No Acute Distress - Head Exam Head Exam: ATRAUMATIC, NORMAL INSPECTION - Eye Exam Eye Exam: EOMI, Normal appearance - ENT Exam ENT Exam: Mucous Membranes Moist - Respiratory Exam Respiratory Exam: Wheezes (bilateral lung wheezing ) - Cardiovascular Exam Cardiovascular Exam: REGULAR RHYTHM, +S1, +S2 - GI/Abdominal Exam GI & Abdominal Exam: Distended, Firm, Normal Bowel Sounds. absent: Soft, Ten derness - Extremities Exam Extremities Exam: Normal Inspection - Neurological Exam Neurological Exam: Alert, Awake, Oriented x3 - Psychiatric Exam Psychiatric exam: Normal Affect - Skin Skin Exam: Normal Color Assessment and Plan - Assessment and Plan (Free Text) Assessment: Assessment: 82 year old male with past medical history of IDDM, HTN, BPH, arthritis who was brought to the ER by ambulance for a 2 weeks of shortness of breath that became worse today as it was associated with chest pain. Chest pain with dyspnea on exertion Possibly secondary to acute on chronic anemia vs. lung pathology (possibly lung fibrosis) Discussed with Dr. Andrade SOB at this time is not secondary to CHF exacerbation Pulmonology Consult: Dr. Pillai --> help appreciated - Patient received ASA 325 mg PO x1 dose in the ED - BNP 522 - which is within normal range - Troponin x2 is negative - Lasix 20 mg IVP daily - Lipid Panel: Total Cholesterol 150; LDL 94; HDL 36; Triglycerides 120 - ECHO (04/08/18): reviewed with Dr. Andrade which showed normal EF; Diastolic CHF - Chest CT (04/08/18): There a small right-sided effusion with minor right basilar atelectasis. Trace left effusion and minimal left basilar atelectasis. Mild pulmonary venous congestive changes are present. There is a small somewhat triangular-shaped nodular opacity in the right middle lobe that measures approximately 4.2 mm. There is also a subjacent slightly more inferiorly located 5 mm nodular opacity. - Noted in chart review patient has a stress test completed in 06/23/[address] 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 Will follow up with Dr. Sweet. - Patient scheduled for right sided heart cardiac cath 04/10/18 - Patient NPO after midnight History of HTN - Continue home lisinopril 40 mg PO daily, metoprolol 100 mg PO daily Hyponatremia - possibly secondary to hypovolemia (due to anemia) - Management per primary team Iron Deficiency Anemia - H/H: 8.0 on admission - GI Consult Dr. Jason --> help appreciated - Patient stated he had a colonoscopy 2 years ago which was normal - Management per primary team Insulin dependant diabetes mellitus - Management per primary team - hA1c 8.[address] Raymond Velasquez PGY-2 <Honorio Andrade - Last Filed: 04/09/18 22:49> Objective - Vital Signs/Intake and Output Vital Signs (last 24 hours): Temp Pulse Resp BP Pulse Ox 98.9 F 77 20 117/76 9 L 04/09/18 15:00 04/09/18 16:31 04/09/18 15:00 04/09/18 15:00 04/09/18 15:00 - Medications Medications: Current Medications Albuterol/Ipratropium (Duoneb 3 Mg/0.5 Mg (3 Ml) Ud) 3 ml INH RQ6 [facility] Last Admin: 04/09/18 19:25 Dose: 3 ml Dextrose (Dextrose 50% Inj) 0 ml IV STAT PRN; Protocol PRN Reason: Hypoglycemia Protocol Dextrose (Glutose 15) 0 gm PO ONCE PRN; Protocol PRN Reason: Hypoglycemia Protocol Finasteride (Proscar) 5 mg PO DAILY [facility] Last Admin: 04/09/18 09:36 Dose: 5 mg Furosemide (Lasix) 20 mg IVP DAILY [facility] Last Admin: 04/09/18 09:37 Dose: 20 mg Glucagon (Glucagen Diagnostic Kit) 0 mg IM STAT PRN; Protocol PRN Reason: Hypoglycemia Protocol Dextrose (Dextrose 5% In Water 1000 Ml) 1,000 mls @ 0 mls/hr IV .Q0M PRN; Protocol PRN Reason: Hypoglycemia Protocol Piperacillin Sod/Tazobactam Sod (Zosyn 3.375 Gm Iv Premix) 3.375 gm in 50 mls @ 100 mls/hr IVPB Q6H [facility]; Protocol Last Admin: 04/09/18 20:00 Dose: 100 mls/hr Insulin Aspart (Novolog) 4 unit SC ACHS [facility] Last Admin: 04/09/18 21:41 Dose: 4 unit Insulin Glargine (Lantus) 45 unit SC HS [facility] Last Admin: 04/09/18 21:41 Dose: 45 units Insulin Human Regular (Novolin R) 0 unit SC ACHS [facility]; Protocol Last Admin: 04/09/18 21:41 Dose: 4 unit Lisinopril (Zestril) 40 mg PO DAILY [facility] Last Admin: 04/09/18 09:36 Dose: 40 mg Methylprednisolone (Solu-Medrol) 40 mg IVP Q6H [facility] Last Admin: 04/09/18 20:00 Dose: 40 mg Metoprolol Succinate (Toprol Xl) 100 mg PO DAILY [facility] Last Admin: 04/09/18 09:36 Dose: 100 mg Pantoprazole Sodium (Protonix Inj) 40 mg IVP Q12H [facility] Last Admin: 04/09/18 16:00 Dose: 40 mg Pneumococcal Polyvalent Vaccine (Pneumovax 23 Vaccine) 0.5 ml IM .ONCE ONE Stop: 04/10/18 10:01 Tamsulosin HCl (Flomax) 0.4 mg PO DAILY [facility] Last Admin: 04/09/18 09:36 Dose: 0.4 mg - Labs Labs: 04/09/18 06:34 04/09/18 06:34 PT 12.2 SECONDS (9.7-12.2) 04/08/18 03:06 INR 1.1 04/08/18 03:06 APTT 31 SECONDS (21-34) 04/08/18 03:06 Assessment and Plan - Assessment and Plan (Free Text) Assessment: From the family member its found out that Patient's primary senior corporate strategy manager is Dr. Sweet. We will transfer patient's cardiology care to Dr. Sweet Trops x 2 are negative, ProBNP normal. EF Normal. Likely low to moderate cardiac risk for Colonoscopy under conscious sedation. If patient needs Colonoscopy, Cardiac point of view there is no contraindication. At this point do not see the additional therapeutic value for RHC. Will cancel RHC for tomorrow All further cardiac management as per Dr. Sweet
--- NOTE | 2018-04-09 15:07 | CP.PCM.PN ---
Subjective - Date & Time of Evaluation Date of Evaluation: 04/09/18 Time of Evaluation: 11:00 - Subjective Subjective: Mr. Junior was seen and examined at bedside. Resting comfortably in bed with BiPAP intake. Last night pt became tachypneic overnight at 6:45pm; ABG was normal. Pt was given duonebs and IV solumedrol, which helpPatient states that his breathing feels much improved compared to last night since starting the BiPAP, nebulizers and steroids. Currently denies any dyspnea or chest pain. No other complaints are noted. Exam: Gen: No acute distress. AAOx3. Obese habitus. HEENT: Moist mucosa. Non-tender sinuses Card: RRRR. Lungs: No tachpnea or respiratory distress at this time. (+) Prolong expirations and rhonchi noted. Abd: Soft, non-distended. Normal bowel sounds. No tenderness to palpation. Ext: No leg swelling noted. (+) Dry, scaly skin to the lower extremities noted. A&P 1. Chest Pain and shortness of breath -CXR (04/08): shows pulmonary venous congestion and cardiomegaly, consistent with CHF -CT Chest/Abd/Pelvis (04/08): Cardiomegaly with small pericardial effusion, small right-sided pleural effusion with basilar atelectasis and trace left effusion with minimal atelectasis -pro-BNP: 522 -Troponin negative; received ASA and Statin - EKG: NSR at 58, nonspecific changes - Echo: EF 71%, normal LV function with mild concentric LVH. Normal RV size and function. 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 influenzae, Legionella, N. menengitidis, GBS and S. PNA negative. - Mycoplasma pending - Continue Duonebs and BiPAP - Continue monitoring vitals - Recommend further work-up for sleep apnea and asthma/COPD once patient is medi dia optimized and stable Objective - Vital Signs/Intake and Output Vital Signs (last 24 hours): Temp Pulse Resp BP Pulse Ox 99.4 F 72 20 160/67 H 98 04/08/18 23:05 04/09/18 13:25 04/08/18 23:05 04/09/18 09:37 04/08/18 23:05 Intake and Output: 04/09/18 04/09/18 06:59 18:59 Intake Total 60 Output Total 375 Balance -315 - Medications Medications: Current Medications Albuterol/Ipratropium (Duoneb 3 Mg/0.5 Mg (3 Ml) Ud) 3 ml INH RQ6 [facility] Last Admin: 04/09/18 13:30 Dose: 3 ml Dextrose (Dextrose 50% Inj) 0 ml IV STAT PRN; Protocol PRN Reason: Hypoglycemia Protocol Dextrose (Glutose 15) 0 gm PO ONCE PRN; Protocol PRN Reason: Hypoglycemia Protocol Finasteride (Proscar) 5 mg PO DAILY [facility] Last Admin: 04/09/18 09:36 Dose: 5 mg Furosemide (Lasix) 20 mg IVP DAILY [facility] Last Admin: 04/09/18 09:37 Dose: 20 mg Glucagon (Glucagen Diagnostic Kit) 0 mg IM STAT PRN; Protocol PRN Reason: Hypoglycemia Protocol Dextrose (Dextrose 5% In Water 1000 Ml) 1,000 mls @ 0 mls/hr IV .Q0M PRN; Protocol PRN Reason: Hypoglycemia Protocol Piperacillin Sod/Tazobactam Sod (Zosyn 3.375 Gm Iv Premix) 3.375 gm in 50 mls @ 100 mls/hr IVPB Q6H [facility]; Protocol Last Admin: 04/09/18 12:35 Dose: 100 mls/hr Insulin Aspart (Novolog) 4 unit SC ACHS [facility] Last Admin: 04/09/18 12:37 Dose: 4 unit Insulin Glargine (Lantus) 45 unit SC HS [facility] Last Admin: 04/08/18 21:49 Dose: 45 units Insulin Human Regular (Novolin R) 0 unit SC ACHS [facility]; Protocol Last Admin: 04/09/18 12:37 Dose: 6 unit Lisinopril (Zestril) 40 mg PO DAILY [facility] Last Admin: 04/09/18 09:36 Dose: 40 mg Methylprednisolone (Solu-Medrol) 40 mg IVP Q6H [facility] Last Admin: 04/09/18 12:36 Dose: 40 mg Metoprolol Succinate (Toprol Xl) 100 mg PO DAILY [facility] Last Admin: 04/09/18 09:36 Dose: 100 mg Pantoprazole Sodium (Protonix Inj) 40 mg IVP Q12H [facility] Last Admin: 04/09/18 04:48 Dose: 40 mg Pneumococcal Polyvalent Vaccine (Pneumovax 23 Vaccine) 0.5 ml IM .ONCE ONE Stop: 04/10/18 10:01 Tamsulosin HCl (Flomax) 0.4 mg PO DAILY [facility] Last Admin: 04/09/18 09:36 Dose: 0.4 mg - Labs Labs: 04/09/18 06:34 04/09/18 06:34 PT 12.2 SECONDS (9.7-12.2) 04/08/18 03:06 INR 1.1 04/08/18 03:06 APTT 31 SECONDS (21-34) 04/08/18 03:06
[2018-04-09 15:16] LABS: IRON 17 ug/dL (49-181)
[2018-04-09 15:26] LABS: % IRON SATURATION 3 (20-55); TOTAL IRON BINDING CAPACITY 500 ug/dL (250-450)
--- NOTE | 2018-04-09 16:27 | CP.PCM.PN ---
<Stevenson Paredes - Last Filed: 04/09/18 16:13> Subjective - Date & Time of Evaluation Date of Evaluation: 04/09/18 Time of Evaluation: 16:13 - Subjective Subjective: PGY-1 Medicine Progress note for Dr. Foreman's service s/e at bedside. admits to ROJAS. off bipap, tolerating nasal cannula on 4l well. denies sob, chest pain ,fevers, chills, headaches, n/v, constipation or diarrhea, and dysuria. Objective - Vital Signs/Intake and Output Vital Signs (last 24 hours): Temp Pulse Resp BP Pulse Ox 99.4 F 72 20 160/67 H 98 04/08/18 23:05 04/09/18 13:25 04/08/18 23:05 04/09/18 09:37 04/08/18 23:05 Intake and Output: 04/09/18 04/09/18 06:59 18:59 Intake Total 60 Output Total 375 Balance -315 - Medications Medications: Current Medications Albuterol/Ipratropium (Duoneb 3 Mg/0.5 Mg (3 Ml) Ud) 3 ml INH RQ6 [facility] Last Admin: 04/09/18 13:30 Dose: 3 ml Dextrose (Dextrose 50% Inj) 0 ml IV STAT PRN; Protocol PRN Reason: Hypoglycemia Protocol Dextrose (Glutose 15) 0 gm PO ONCE PRN; Protocol PRN Reason: Hypoglycemia Protocol Finasteride (Proscar) 5 mg PO DAILY [facility] Last Admin: 04/09/18 09:36 Dose: 5 mg Furosemide (Lasix) 20 mg IVP DAILY [facility] Last Admin: 04/09/18 09:37 Dose: 20 mg Glucagon (Glucagen Diagnostic Kit) 0 mg IM STAT PRN; Protocol PRN Reason: Hypoglycemia Protocol Dextrose (Dextrose 5% In Water 1000 Ml) 1,000 mls @ 0 mls/hr IV .Q0M PRN; Protocol PRN Reason: Hypoglycemia Protocol Piperacillin Sod/Tazobactam Sod (Zosyn 3.375 Gm Iv Premix) 3.375 gm in 50 mls @ 100 mls/hr IVPB Q6H [facility]; Protocol Last Admin: 04/09/18 12:35 Dose: 100 mls/hr Insulin Aspart (Novolog) 4 unit SC ACHS [facility] Last Admin: 04/09/18 12:37 Dose: 4 unit Insulin Glargine (Lantus) 45 unit SC [facility] Last Admin: 04/08/18 21:49 Dose: 45 units Insulin Human Regular (Novolin R) 0 unit SC [facility]; Protocol Last Admin: 04/09/18 12:37 Dose: 6 unit Lisinopril (Zestril) 40 mg PO DAILY [facility] Last Admin: 04/09/18 09:36 Dose: 40 mg Methylprednisolone (Solu-Medrol) 40 mg IVP Q6H [facility] Last Admin: 04/09/18 12:36 Dose: 40 mg Metoprolol Succinate (Toprol Xl) 100 mg PO DAILY [facility] Last Admin: 04/09/18 09:36 Dose: 100 mg Pantoprazole Sodium (Protonix Inj) 40 mg IVP Q12H [facility] Last Admin: 04/09/18 04:48 Dose: 40 mg Pneumococcal Polyvalent Vaccine (Pneumovax 23 Vaccine) 0.5 ml IM .ONCE ONE Stop: 04/10/18 10:01 Tamsulosin HCl (Flomax) 0.4 mg PO DAILY [facility] Last Admin: 04/09/18 09:36 Dose: 0.4 mg - Labs Labs: 04/09/18 06:34 04/09/18 06:34 PT 12.2 SECONDS (9.7-12.2) 04/08/18 03:06 INR 1.1 04/08/18 03:06 APTT 31 SECONDS (21-34) 04/08/18 03:06 - Additional Findings Additional findings: - Constitutional Appears: Non-toxic, No Acute Distress - Head Exam Head Exam: NORMAL INSPECTION, NORMOCEPHALIC - Eye Exam Eye Exam: EOMI, Normal appearance. absent: Nystagmus, Scleral icterus - ENT Exam ENT Exam: Mucous Membranes Dry - Respiratory Exam Respiratory Exam: Decreased Breath Sounds, NORMAL BREATHING PATTERN. absent: Rales, Rhonchi, Wheezes, Respiratory Distress - Cardiovascular Exam Cardiovascular Exam: REGULAR RHYTHM, +S1, +S2. absent: Tachycardia - GI/Abdominal Exam GI & Abdominal Exam: Distended, Normal Bowel Sounds. absent: Firm, Guarding, Rigid, Soft, Tenderness - Extremities Exam Extremities Exam: Normal Inspection. absent: Calf Tenderness, Pedal Edema Additional comments: b/l chonic dry skin in lower extremity - Back Exam Back Exam: NORMAL INSPECTION, paraspinal tenderness - Neurological Exam Neurological Exam: Alert, Awake, Oriented x3 - Psychiatric Exam Psychiatric exam: Normal Affect, Normal Mood - Skin Skin Exam: Dry, Intact, Normal Color Assessment and Plan - Assessment and Plan (Free Text) Assessment: Patient is an 82 year old w/ PMH of IDDM, HTN, BPH, and arthritis admitted to hospital for 2 weeks of SOB and chest pain. Admits to cold like symptoms with only one stated being a cough with whitish sputum. SOB Pulmonology Consulted: Dr. Pillai Cardiology Consulted: Dr. Andrade Diastolic HF vs Right sided HF (etiology possibly PATRICK) CT abd/pelvis (04/07/18) pleural effusions b/l 04/08/18 Cxray- full read pending- pleural effusions noted 04/08/[address]- b/l pleural effusions ROJAS can be multifactorial: anemia vs RHF vs pleural effusions Kellen negative Duoneb q6 Lasix 20mg IV bid; Lisinopril 40mg po daily; Toprol 100mg po daily Methylprednisolon 40mg IVP q6h; Duoneb q6h trice Zosyn 3.375gm IVPB q6h PNA studies pending Pro rocky pending Low back pain Lumbar xray- mild degenerative changes, no acute findings Anemia GI consulted: Dr. Lori ayala appreciated iron deficiency anemia on labs recent CSPY with normal results IDDM Glargine 45 units HS Aspart 4 units w/ meals ISS ACHS A1c of 8.7 HTN Zestril 40mg po daily Metoprolol 100mg po daily Lasix 20mg IV bid BPH Finasteride 5mg po daily Flomax 0.4mg po daily Dispostion: likely right heart failure due to obesity + PATRICK; will need right h eart cath for diagnosis, bipap at night, possible repeat xray, endoscopy/cspy when stable PGY-1 Stevenson Paredes Case d/w Dr. Foreman <Debora Foreman V - Last Filed: 04/14/18 13:56> Objective - Vital Signs/Intake and Output Vital Signs (last 24 hours): Temp Pulse Resp BP Pulse Ox 98.4 F 91 H 20 131/62 93 L 04/14/18 07:30 04/14/18 07:30 04/14/18 07:30 04/14/18 10:29 04/14/18 07:30 Intake and Output: 04/14/18 04/14/18 06:59 18:59 Intake Total 370 Balance 370 - Medications Medications: Current Medications Albuterol/Ipratropium (Duoneb 3 Mg/0.5 Mg (3 Ml) Ud) 3 ml INH RQ6 [facility] Last Admin: 04/14/18 02:00 Dose: Not Given Amlodipine Besylate (Norvasc) 10 mg PO DAILY [facility] Last Admin: 04/14/18 10:29 Dose: 10 mg Dextrose (Dextrose 50% Inj) 0 ml IV STAT PRN; Protocol PRN Reason: Hypoglycemia Protocol Dextrose (Glutose 15) 0 gm PO ONCE PRN; Protocol PRN Reason: Hypoglycemia Protocol Finasteride (Proscar) 5 mg PO DAILY [facility] Last Admin: 04/14/18 10:28 Dose: 5 mg Furosemide (Lasix) 20 mg IVP DAILY [facility] Last Admin: 04/14/18 10:29 Dose: 20 mg Glucagon (Glucagen Diagnostic Kit) 0 mg IM STAT PRN; Protocol PRN Reason: Hypoglycemia Protocol Hydralazine HCl (Apresoline) 50 mg PO Q8H [facility] Last Admin: 04/14/18 13:38 Dose: 50 mg Dextrose (Dextrose 5% In Water 1000 Ml) 1,000 mls @ 0 mls/hr IV .Q0M PRN; Protocol PRN Reason: Hypoglycemia Protocol Piperacillin Sod/Tazobactam Sod (Zosyn 3.375 Gm Iv Premix) 3.375 gm in 50 mls @ 100 mls/hr IVPB Q6H [facility]; Protocol Last Admin: 04/14/18 10:29 Dose: 100 mls/hr Insulin Aspart (Novolog) 0 unit SC ACHS [facility]; Protocol Last Admin: 04/14/18 13:37 Dose: 6 units Insulin Aspart (Novolog) 14 unit SC TIDAC [facility] Last Admin: 04/14/18 13:37 Dose: 14 u Insulin Glargine (Lantus) 65 unit SC HS [facility] Last Admin: 04/13/18 22:10 Dose: 65 units Lactobacillus Acidophilus (Bacid Acidophilus) 1 cap PO BID [facility] Last Admin: 04/14/18 10:29 Dose: 1 cap Lisinopril (Zestril) 40 mg PO DAILY [facility] Last Admin: 04/14/18 10:29 Dose: 40 mg Methylprednisolone (Solu-Medrol) 40 mg IVP Q12H [facility] Last Admin: 04/14/18 13:38 Dose: 40 mg Metoprolol Succinate (Toprol Xl) 100 mg PO DAILY [facility] Last Admin: 04/14/18 10:29 Dose: 100 mg Metoprolol Tartrate (Lopressor) 5 mg IVP Q6H PRN PRN Reason: SBP>160 Pantoprazole Sodium (Protonix Inj) 40 mg IVP Q12H [facility] Last Admin: 04/14/18 03:59 Dose: 40 mg Tamsulosin HCl (Flomax) 0.4 mg PO DAILY [facility] Last Admin: 04/14/18 10:29 Dose: 0.4 mg - Labs Labs: 04/14/18 07:29 04/14/18 07:29 PT 12.2 SECONDS (9.7-12.2) 04/08/18 03:06 INR 1.1 04/08/18 03:06 APTT 31 SECONDS (21-34) 04/08/18 03:06 Assessment and Plan (1) Morbid obesity Status: Acute (2) Iron deficiency anemia Status: Acute (3) Hypoglycemia due to type 1 diabetes mellitus Status: Acute (4) Diastolic CHF Status: Acute (5) Hypertensive urgency Status: Acute (6) Shortness of breath Status: Acute (7) Prophylactic measure Status: Acute Attending/Attestation - Attestation I have personally seen and examined this patient.: Yes I have fully participated in the care of the patient.: Yes I have reviewed all pertinent clinical information, including history, physical exam and plan: Yes Notes (Text): This is a late computer entry for April 09, 2018. Patient seen, examined, case discussed with medical claims representative. Patient's breathing status improved since starting BiPAP last night as well as started on IV steroids. Patient appears more comfortable. Patient was last taken it compared to last night. Will need to follow-up with cardiology regards to further cardiac workup for possible right heart cath. We will need to continue to optimize insulin regimen and antihypertensives accordingly. We will continue to monitor.
[2018-04-09 16:50] LABS: ABG ALLEN TEST POS; ARTERIAL BLOOD GAS HCO3 27.1 mmol/L (21-28); ARTERIAL BLOOD GAS O2 SAT 95.3 % (95-98); ARTERIAL BLOOD GAS PCO2 49 mm/Hg (35-45); ARTERIAL BLOOD GAS PH 7.38 (7.35-7.45); ARTERIAL BLOOD GAS PO2 59 mm/Hg (80-100); ARTERIAL BLOOD GAS TCO2 30.5 mmol/L (22-28)
[2018-04-09 17:10] LABS: MYCOPLASMA PNEUMONIAE IGM NEGATIVE (NEGATIVE)
[2018-04-09] MEDS: (Lantus) Insulin Glargine, Recombinant SC SCH (21:41)
[2018-04-10] MEDS: MethylPREDNISolone 40 mg Vial IVP SCH ×4 (00:50→20:59)
[2018-04-10] MEDS: Piperacill/Tazo 3.375gm in Dex 3.375 GM/50 ML BAG IVPB SCH ×4 (00:51→20:54)
[2018-04-10] MEDS: Albuterol-Ipratrop 3 mg / 0.5 (3 ml) UD INH SCH ×4 (01:15→20:08)
[2018-04-10 07:34] LABS: BASO % 0.2 % (0.0-2.0); LYMPH # 0.9 K/uL (1.0-4.3); LYMPH % 7.5 % (20.0-40.0); MEAN CELL VOLUME 68.7 fL (80.0-94.0); MEAN CORPUSCULAR HEMOGLOBIN 20.9 pg (27.0-31.0); MEAN CORPUSCULAR HGB CONC 30.4 g/dL (33.0-37.0); MEAN PLATELET VOLUME 7.9 fL (7.2-11.7); MONO # 0.2 K/uL (0.0-0.8); NEUT # 11.1 K/uL (1.8-7.0); NEUT % 90.3 % (50.0-75.0); NRBC % 0.1 % (0.0-2.0); PLATELET COUNT 363 K/uL (130-400); RED CELL DISTRIBUTION WIDTH 18.2 % (11.5-14.5); WHITE BLOOD COUNT 12.2 K/uL (4.8-10.8)
--- NOTE | 2018-04-10 07:42 | CP.PCM.PN ---
Objective - Vital Signs/Intake and Output Vital Signs (last 24 hours): Temp Pulse Resp BP Pulse Ox 98.8 F 90 20 152/65 H 95 04/10/18 04:51 04/10/18 04:51 04/10/18 04:51 04/10/18 04:51 04/10/18 04:51 Intake and Output: 04/10/18 04/10/18 06:59 18:59 Output Total 400 Balance -400 - Medications Medications: Current Medications Albuterol/Ipratropium (Duoneb 3 Mg/0.5 Mg (3 Ml) Ud) 3 ml INH RQ6 [facility] Last Admin: 04/10/18 01:15 Dose: 3 ml Dextrose (Dextrose 50% Inj) 0 ml IV STAT PRN; Protocol PRN Reason: Hypoglycemia Protocol Dextrose (Glutose 15) 0 gm PO ONCE PRN; Protocol PRN Reason: Hypoglycemia Protocol Finasteride (Proscar) 5 mg PO DAILY [facility] Last Admin: 04/09/18 09:36 Dose: 5 mg Furosemide (Lasix) 20 mg IVP DAILY [facility] Last Admin: 04/09/18 09:37 Dose: 20 mg Glucagon (Glucagen Diagnostic Kit) 0 mg IM STAT PRN; Protocol PRN Reason: Hypoglycemia Protocol Dextrose (Dextrose 5% In Water 1000 Ml) 1,000 mls @ 0 mls/hr IV .Q0M PRN; Protocol PRN Reason: Hypoglycemia Protocol Piperacillin Sod/Tazobactam Sod (Zosyn 3.375 Gm Iv Premix) 3.375 gm in 50 mls @ 100 mls/hr IVPB Q6H [facility]; Protocol Last Admin: 04/10/18 06:55 Dose: 100 mls/hr Insulin Aspart (Novolog) 4 unit SC [facility] Last Admin: 04/09/18 21:41 Dose: 4 unit Insulin Glargine (Lantus) 45 unit SC HS [facility] Last Admin: 04/09/18 21:41 Dose: 45 units Insulin Human Regular (Novolin R) 0 unit SC [facility]; Protocol Last Admin: 04/09/18 21:41 Dose: 4 unit Lisinopril (Zestril) 40 mg PO DAILY [facility] Last Admin: 04/09/18 09:36 Dose: 40 mg Methylprednisolone (Solu-Medrol) 40 mg IVP Q6H [facility] Last Admin: 04/10/18 06:55 Dose: 40 mg Metoprolol Succinate (Toprol Xl) 100 mg PO DAILY [facility] Last Admin: 04/09/18 09:36 Dose: 100 mg Pantoprazole Sodium (Protonix Inj) 40 mg IVP Q12H [facility] Last Admin: 04/10/18 04:26 Dose: 40 mg Pneumococcal Polyvalent Vaccine (Pneumovax 23 Vaccine) 0.5 ml IM .ONCE ONE Stop: 04/10/18 10:01 Tamsulosin HCl (Flomax) 0.4 mg PO DAILY [facility] Last Admin: 04/09/18 09:36 Dose: 0.4 mg - Labs Labs: 04/10/18 07:18 04/09/18 06:34 PT 12.2 SECONDS (9.7-12.2) 04/08/18 03:06 INR 1.1 04/08/18 03:06 APTT 31 SECONDS (21-34) 04/08/18 03:06
[2018-04-10 08:06] LABS: ALB/GLOB RATIO 1.2 (1.0-2.1); ALBUMIN 3.6 g/dL (3.5-5.0); ALT/SGPT 38 U/L (21-72); AST/SGOT 47 U/L (17-59); BLOOD UREA NITROGEN 22 mg/dL (9-20); CALCIUM 7.7 mg/dl (8.6-10.4); GFR NON-AFRICAN AMERICAN > 60
[2018-04-10 08:30] LABS: BANDS 1 % (0-2); LYMPHOCYTE 2 % (20-40); MONOCYTE 2 % (0-10); NEUTROPHIL 95 % (50-75); PLATELET ESTIMATE NORMAL (NORMAL); TOTAL CELLS COUNTED 100
[2018-04-10 08:31] LABS: ANISOCYTOSIS SLIGHT; HYPOCHROMIC MODERATE; MICROCYTOSIS SLIGHT; POLYCHROMIC SLIGHT
[2018-04-10 08:32] LABS: TARGET CELLS MODERATE
[2018-04-10 08:33] LABS: OVALOCYTES SLIGHT
[2018-04-10] MEDS: (Novolog) Insulin Aspart, Recombinant 100 u/ml 10 ml vial SC SCH ×6 (08:35→21:45)
[2018-04-10] MEDS: (Novolin R) Insulin Human Regular 100 units/ml vial SC SCH ×2 (08:35→13:16)
[2018-04-10] MEDS: Metoprolol Succinate 100 mg XL Tab PO SCH (09:53)
[2018-04-10] MEDS ORDERED: Pneumococcal 23-Valent Vaccine IM ONE (10:00)
--- NOTE | 2018-04-10 10:10 | CP.PCM.PN ---
Subjective - Date & Time of Evaluation Date of Evaluation: 04/10/18 Time of Evaluation: 10:05 - Subjective Subjective: Medical Attending Note: Patient seen and examined this morning. No acute events overnight. Patient reports "he feels asthma in his throat". Patient reports he has had bowel movement overnight. Patient denies chest pain. patient seen on nasal cannula. Objective - Vital Signs/Intake and Output Vital Signs (last 24 hours): Temp Pulse Resp BP Pulse Ox 98.5 F 78 18 179/81 H 100 04/10/18 07:45 04/10/18 07:45 04/10/18 07:45 04/10/18 09:54 04/10/18 07:45 Intake and Output: 04/10/18 04/10/18 06:59 18:59 Intake Total 260 Output Total 800 Balance -540 - Medications Medications: Current Medications Albuterol/Ipratropium (Duoneb 3 Mg/0.5 Mg (3 Ml) Ud) [address] [facility] Last Admin: 04/10/18 08:46 Dose: Not Given Dextrose (Dextrose 50% Inj) 0 ml IV STAT PRN; Protocol PRN Reason: Hypoglycemia Protocol Dextrose (Glutose 15) 0 gm PO ONCE PRN; Protocol PRN Reason: Hypoglycemia Protocol Finasteride (Proscar) [address] [facility] Last Admin: 04/10/18 09:53 Dose: 5 mg Furosemide (Lasix) [address] [facility] Last Admin: 04/10/18 09:54 Dose: 20 mg Glucagon (Glucagen Diagnostic Kit) 0 mg IM STAT PRN; Protocol PRN Reason: Hypoglycemia Protocol Dextrose (Dextrose 5% In Water 1000 Ml) 1,000 mls @ 0 mls/hr IV .Q0M PRN; Protocol PRN Reason: Hypoglycemia Protocol Piperacillin Sod/Tazobactam Sod (Zosyn 3.375 Gm Iv Premix) 3.375 gm in 50 mls @ 100 mls/hr IVPB Q6H [facility]; Protocol Last Admin: 04/10/18 06:55 Dose: 100 mls/hr Insulin Aspart (Novolog) [address] [facility] Last Admin: 04/10/18 08:35 Dose: 4 unit Insulin Glargine (Lantus) [address] [facility] Last Admin: 04/09/18 21:41 Dose: 45 units Insulin Human Regular (Novolin R) 0 unit SC [facility]; Protocol Last Admin: 04/10/18 08:35 Dose: 6 unit Lisinopril (Zestril) [address] [facility] Last Admin: 04/10/18 09:54 Dose: 40 mg Methylprednisolone (Solu-Medrol) [address] [facility] Last Admin: 04/10/18 06:55 Dose: 40 mg Metoprolol Succinate (Toprol Xl) [address] [facility] Last Admin: 04/10/18 09:53 Dose: 100 mg Pantoprazole Sodium (Protonix Inj) [address] [facility] Last Admin: 04/10/18 04:26 Dose: 40 mg Tamsulosin HCl (Flomax) 0.[address] [facility] Last Admin: 04/10/18 09:54 Dose: 0.4 mg - Labs Labs: 04/10/18 07:18 04/10/18 07:18 PT 12.2 SECONDS (9.7-12.2) 04/08/18 03:06 INR 1.1 04/08/18 03:06 APTT 31 SECONDS (21-34) 04/08/18 03:06 - Constitutional Appears: Non-toxic, No Acute Distress - Head Exam Head Exam: NORMAL INSPECTION Additional comments: morbidly obese - Eye Exam Eye Exam: EOMI - ENT Exam ENT Exam: Mucous Membranes Dry - Respiratory Exam Respiratory Exam: Decreased Breath Sounds. absent: Accessory Muscle Use, Chest Wall Tenderness Additional comments: mild expiratory wheezing mild improvement in breathing sounds - Cardiovascular Exam Cardiovascular Exam: RRR, +S1, +S2 - GI/Abdominal Exam GI & Abdominal Exam: Distended (obese habitus), Soft, Normal Bowel Sounds. absent: Firm, Guarding, Rigid, Tenderness - Extremities Exam Extremities Exam: Pedal Edema (trace, nonpitting). absent: Joint Swelling - Back Exam Back Exam: absent: CVA tenderness (L), CVA tenderness (R) - Neurological Exam Neurological Exam: Alert, Awake, Oriented x3 - Psychiatric Exam Psychiatric exam: absent: Agitated, Anxious - Skin Skin Exam: Dry, Intact, Normal Color, Warm Assessment and Plan (1) Morbid obesity Status: Acute (2) Iron deficiency anemia Status: Acute (3) Hypoglycemia due to type 1 diabetes mellitus Status: Acute (4) Diastolic CHF Status: Acute (5) Prophylactic measure Status: Acute Attending/Attestation - Attestation I have personally seen and examined this patient.: Yes I have fully participated in the care of the patient.: Yes I have reviewed all pertinent clinical information, including history, physical exam and plan: Yes Notes (Text): Assessment/Plan 1. Shortness of Breathe Assessment/Plan * Multifactorial including iron deficiency anemia, congestive heart failure, atelecasis * Cardiology, pulmonary, and gi on board * Ordered for repeat ABG today * Patient is on Solumedrol 40mg IV Q6H (active since 04/08/18) * likely accounting for leukocytosis 2. Iron Deficiency Anemia Assessment/Plan * GI (Dr. Jason) distribution operations supervisor-->help appreciated * Patient's heme-onc: Dr. Malagon * Ferritin: low, iron: low, High TIBC, high reticulocyte count, elevated RDW * Prior hgb: 8.7 in Feb 2018 * pending occult blood * order 04/08; 04/09; and today * Patient taking Motrin as outpatient for low back pain; and plavix for vascular stent in legs * Low ferritin * Patient reports he has had a colonoscopy 1-2 years ago * per cardiology, * From the family member its found out that Patient's primary reduction furnace operator helper is Dr. Sweet. We will transfer patient's cardiology care to Dr. Bray x 2 are negative, ProBNP normal. EF Normal. Likely low to moderate cardiac risk for Colonoscopy under conscious sedation. If patient needs Colonoscopy, Cardiac point of view there is no contraindication. At this point do not see the additional therapeutic value for RHC. Will cancel RHC for tomorrow. All further cardiac management as per Dr. Sweet 3. Elevated Lipase Assessment/Plan * CAT scan awaiting final read. Mild irregularity of the liver, probable chronic parenchymal liver disease. Benign simple left hepatic lobe cyst. Uncomplicated colonic diverticulosis. Minimal left pleural effusion. Mild right pleural effusion. Passive left airspace disease of both lower lobes. Prostatomegaly. Mild diffuse thickening of the bladder. However secondary to chronic bladder outlet obstruction. Unremarkable CT evaluation of the pancreas. * Patient clinically does not look like he has acute pancreatitis. Belly is benign on exam. 4. Low back pain Assessment/Plan * Lumbar xray: Mild degenerative change. No acute findings. 5. Congestive Heart Failure, Diastolic Assessment/Plan * Cardiology (Dr. Andrade) distribution operations supervisor->help appreciated * Transferred care to Dr. Sweet who has seen the patient in the past. * Chest xray: CHF/cardiomegaly * ECHO (04/08/18): reviewed with Dr. Andrade which showed normal EF; Diastolic CHF * CT Chest (04/08/18): small right sided effusion with monitor right basilar atelectasis. trace left effusion and minimal left basilar atelectasis. Mild pulmonary venous congestive changes are present. Small somewhat triangular shaped nodular opacity in the right middle lobe that measures approximately 4.2mm. Subjacent slightly more inferiorly located 5mm nodular opacity. cardiomegaly with small pericardial effusion. small amount of perihepatic ascites again noted. * Lasix 20mg IVP BID * Lisinopril 40mg PO daily * Toprol XL 100mg PO daily * Daily weight * Intake and outputs * Aspirin off given anemia 6. Diabetes Assessment/Plan * sugars uncontrolled since starting steroids * hgba1c: 8.7 * Patient required 26 units of regular insulin over 24 hours. * Insulin regiment adjusted: * Novolog 4 unit subq ACHS-->increased to Novolog 8 units TIDAC * Lantus 45 unit subq HS--->Lantus 55 units subqHS * Changed coverage to Novolog low dose protocol * Hypoglycemic protocol 7. Enlarged Prostate Assessment/Plan * Flomax 0.4mg PO Daily * Proscar 5mg PO daily 8. Hypertension Assessment/Plan * Uncontrolled * Lasix 20mg IVP daily * Lisinopril 40mg PO daily * Toprol XL 100mg PO daily * Add Norvasc 5mg Po daily 9. Hyponatremia Assessment/Plan * Serum osmolarity: normal * Urine osmolarity: 251 * Urine sodium: 75 * improving 10. History of peripheral vascular disease Assessment/Plan * Patient has been taking plavix as outpatient for vascular stents 11. Prophylactic measure * Protonix 40mg [id number] * Hold anticoagulation given anemia * scds contraindicated given history of PAD * PT/OT eval
[2018-04-10] MEDS ORDERED: (Lantus) Insulin Glargine, Recombinant SC SCH ×2 (10:26→18:34)
[2018-04-10 11:25] LABS: ABG ALLEN TEST POS; ARTERIAL BLOOD GAS HCO3 27.1 mmol/L (21-28); ARTERIAL BLOOD GAS HEMOGLOBIN 8.1 g/dL (11.7-17.4); ARTERIAL BLOOD GAS O2 SAT 99.5 % (95-98); ARTERIAL BLOOD GAS PCO2 40 mm/Hg (35-45); ARTERIAL BLOOD GAS PH 7.44 (7.35-7.45); ARTERIAL BLOOD GAS PO2 79 mm/Hg (80-100); ARTERIAL BLOOD GAS TCO2 28.4 mmol/L (22-28)
--- NOTE | 2018-04-10 12:22 | CP.PCM.PN ---
Subjective - Date & Time of Evaluation Date of Evaluation: 04/10/18 Time of Evaluation: 12:10 - Subjective Subjective: I was informed by Dr davies last night at 8:04pm about the patient. he has been seeing the patient since his admission and asked if i could take over his cardiac care. patient was last seen by me in 2016 for evaluation of CAD and risk factors. Nuclear stress test was abnormal, however the patient did not return for followup despite numerous attempts at contacting. Patient presents with dyspnea on exertion and chest pain after walking one block. pro BNP was mildly elevated and patient was found to have Hgb 8. he has been seen by GI. Objective - Vital Signs/Intake and Output Vital Signs (last 24 hours): Temp Pulse Resp BP Pulse Ox 98.5 F 78 18 179/81 H 100 04/10/18 07:45 04/10/18 07:45 04/10/18 07:45 04/10/18 09:54 04/10/18 07:45 Intake and Output: 04/10/18 04/10/18 06:59 18:59 Intake Total 260 Output Total 800 Balance -540 - Medications Medications: Current Medications Albuterol/Ipratropium (Duoneb 3 Mg/0.5 Mg (3 Ml) Ud) 3 ml INH RQ6 [facility] Last Admin: 04/10/18 08:46 Dose: Not Given Amlodipine Besylate (Norvasc) 5 mg PO DAILY [facility] OF [facility] Dextrose (Dextrose 50% Inj) 0 ml IV STAT PRN; Protocol PRN Reason: Hypoglycemia Protocol Dextrose (Glutose 15) 0 gm PO ONCE PRN; Protocol PRN Reason: Hypoglycemia Protocol Finasteride (Proscar) 5 mg PO DAILY [facility] Last Admin: 04/10/18 09:53 Dose: 5 mg Furosemide (Lasix) 20 mg IVP DAILY [facility] Last Admin: 04/10/18 09:54 Dose: 20 mg Glucagon (Glucagen Diagnostic Kit) 0 mg IM STAT PRN; Protocol PRN Reason: Hypoglycemia Protocol Dextrose (Dextrose 5% In Water 1000 Ml) 1,000 mls @ 0 mls/hr IV .Q0M PRN; Protocol PRN Reason: Hypoglycemia Protocol Piperacillin Sod/Tazobactam Sod (Zosyn 3.375 Gm Iv Premix) 3.375 gm in 50 mls @ 100 mls/hr IVPB Q6H [facility]; Protocol Last Admin: 04/10/18 06:55 Dose: 100 mls/hr Insulin Aspart (Novolog) 8 unit SC TIDAC ON [facility] Insulin Aspart (Novolog) 0 unit SC ACHS [facility]; Protocol Insulin Glargine (Lantus) 55 unit SC HS [facility] Insulin Human Regular (Novolin R) 0 unit SC ACHS [facility]; Protocol Last Admin: 04/10/18 08:35 Dose: 6 unit Lisinopril (Zestril) 40 mg PO DAILY [facility] Last Admin: 04/10/18 09:54 Dose: 40 mg Methylprednisolone (Solu-Medrol) 40 mg IVP Q6H [facility] Last Admin: 04/10/18 06:55 Dose: 40 mg Metoprolol Succinate (Toprol Xl) 100 mg PO DAILY [facility] Last Admin: 04/10/18 09:53 Dose: 100 mg Pantoprazole Sodium (Protonix Inj) 40 mg IVP Q12H [facility] Last Admin: 04/10/18 04:26 Dose: 40 mg Tamsulosin HCl (Flomax) 0.4 mg PO DAILY [facility] Last Admin: 04/10/18 09:54 Dose: 0.4 mg - Labs Labs: 04/10/18 07:18 04/10/18 07:18 PT 12.2 SECONDS (9.7-12.2) 04/08/18 03:06 INR 1.1 04/08/18 03:06 APTT 31 SECONDS (21-34) 04/08/18 03:06 - Constitutional Appears: Non-toxic - Head Exam Head Exam: NORMAL INSPECTION - Eye Exam Eye Exam: Normal appearance - ENT Exam ENT Exam: Mucous Membranes Moist - Neck Exam Neck Exam: Normal Inspection - Respiratory Exam Respiratory Exam: NORMAL BREATHING PATTERN - Cardiovascular Exam Cardiovascular Exam: REGULAR RHYTHM - GI/Abdominal Exam GI & Abdominal Exam: Normal Bowel Sounds - Rectal Exam Rectal Exam: Deferred - Extremities Exam Extremities Exam: Full ROM - Back Exam Back Exam: NORMAL INSPECTION - Neurological Exam Neurological Exam: Alert - Psychiatric Exam Psychiatric exam: Normal Affect - Skin Skin Exam: Normal Color Assessment and Plan (1) Unstable angina Assessment & Plan: patient had a previous abnormal stress test but was lost to follow up. he has symptoms and risk factors concerning for unstable angina and obstructive CAD. recommend evaluation of coronary anatomy. will schedule cardiac cath. discussed with the daughter in detail. Status: Acute (2) HTN (hypertension) Assessment & Plan: recommend blood pressure control. recommend increasing amlodipine to 10. may need HCTZ 25 mg daily Status: Acute (3) Anemia Assessment & Plan: will need cardiac cath before proceeding with GI workup Status: Acute
--- NOTE | 2018-04-10 17:29 | CP.PCM.PN ---
Subjective - Date & Time of Evaluation Date of Evaluation: 04/10/18 Time of Evaluation: 11:00 - Subjective Subjective: Mr. Junior was seen and examined at bedside. Patient states that today he is still having some difficulty breathing today. Although it is better when he receives BiPAP. Additionally he reports some upper airway irritation and difficulty sleeping overnight. Denies any chest pain, palpitations nausea, vomiting, hemoptysis or abdominal pain. Exam: Gen: No acute distress. AAOx3. Obese habitus. HEENT: Moist mucosa. Non-tender sinuses Card: RRRR. Lungs: No tachpnea or respiratory distress at this time. (+) upper airway stridor and mild wheezing present Abd: Soft, non-distended. Normal bowel sounds. No tenderness to palpation. Ext: No leg swelling noted. (+) Dry, scaly skin to the lower extremities noted. A&P Summary: Multifactorial shortness of breath secondary to combined COPD, obstructive sleep apnea, iron-deficiency anemia and diastolic CHF 1. Shortness of breath with wheezing most likely secondary to bronch ospasm/Asthma - CXR (04/08): shows pulmonary venous congestion and cardiomegaly, consistent with CHF - CT Chest/Abd/Pelvis (04/08): Cardiomegaly with small pericardial effusion, small right-sided pleural effusion with basilar atelectasis and trace left effusion with minimal atelectasis - pro-BNP: 522 - Troponin negative; received ASA and Statin - EKG: NSR at 58, nonspecific changes - Echo: EF 71%, normal LV function with mild concentric LVH. Normal RV size and function. - CBC reveals iron-deficiency anemia; work-up by hematology - Of note, myocardial nuclear stress (June 2013): showed pharmacologically induced ischemia of the anterior LV wall - Serologies negative for H. influenzae, Legionella, N. menengitidis, GBS, S. PNA, and mycoplasma - Continue Duonebs and BiPAP - Sat 95-100%, continue monitoring vitals - Recommend further work-up for sleep apnea and asthma/COPD once patient is medically optimized and stable Objective - Vital Signs/Intake and Output Vital Signs (last 24 hours): Temp Pulse Resp BP Pulse Ox 98.5 F 78 18 179/81 H 100 04/10/18 07:45 04/10/18 07:45 04/10/18 07:45 04/10/18 09:54 04/10/18 07:45 Intake and Output: 04/10/18 04/10/18 06:59 18:59 Intake Total 260 Output Total 800 Balance -540 - Medications Medications: Current Medications Albuterol/Ipratropium (Duoneb 3 Mg/0.5 Mg (3 Ml) Ud) 3 ml INH RQ6 [facility] Last Admin: 04/10/18 13:29 Dose: 3 ml Amlodipine Besylate (Norvasc) 10 mg PO DAILY [facility] Dextrose (Dextrose 50% Inj) 0 ml IV STAT PRN; Protocol PRN Reason: Hypoglycemia Protocol Dextrose (Glutose 15) 0 gm PO ONCE PRN; Protocol PRN Reason: Hypoglycemia Protocol Finasteride (Proscar) 5 mg PO DAILY [facility] Last Admin: 04/10/18 09:53 Dose: 5 mg Furosemide (Lasix) 20 mg IVP DAILY [facility] Last Admin: 04/10/18 09:54 Dose: 20 mg Glucagon (Glucagen Diagnostic Kit) 0 mg IM STAT PRN; Protocol PRN Reason: Hypoglycemia Protocol Dextrose (Dextrose 5% In Water 1000 Ml) 1,000 mls @ 0 mls/hr IV .Q0M PRN; Protocol PRN Reason: Hypoglycemia Protocol Piperacillin Sod/Tazobactam Sod (Zosyn 3.375 Gm Iv Premix) 3.375 gm in 50 mls @ 100 mls/hr IVPB Q6H [facility]; Protocol Last Admin: 04/10/18 16:01 Dose: 100 mls/hr Insulin Aspart (Novolog) 8 unit SC TIDAC [facility]PLAC[facility] Last Admin: 04/10/18 13:14 Dose: 8 u Insulin Aspart (Novolog) 0 unit SC ACHS [facility]; Protocol Last Admin: 04/10/18 13:15 Dose: 6 u Insulin Glargine (Lantus) 55 unit SC HS [facility]PLAC[facility] Insulin Human Regular (Novolin R) 0 unit SC ACHS [facility]; Protocol Last Admin: 04/10/18 13:16 Dose: Not Given Lisinopril (Zestril) 40 mg PO DAILY [facility] Last Admin: 04/10/18 09:54 Dose: 40 mg Methylprednisolone (Solu-Medrol) 40 mg IVP Q6H [facility] Last Admin: 04/10/18 16:01 Dose: 40 mg Metoprolol Succinate (Toprol Xl) 100 mg PO DAILY [facility] Last Admin: 04/10/18 09:53 Dose: 100 mg Pantoprazole Sodium (Protonix Inj) 40 mg IVP Q12H [facility] Last Admin: 04/10/18 04:26 Dose: 40 mg Tamsulosin HCl (Flomax) 0.4 mg PO DAILY [facility] Last Admin: 04/10/18 09:54 Dose: 0.4 mg - Labs Labs: 04/10/18 07:18 04/10/18 07:18 PT 12.2 SECONDS (9.7-12.2) 04/08/18 03:06 INR 1.1 04/08/18 03:06 APTT 31 SECONDS (21-34) 04/08/18 03:06
--- NOTE | 2018-04-11 00:29 | CON ---
DATE: 04/10/2018 REASON FOR CONSULTATION: Possible airway obstruction. HISTORY OF PRESENT ILLNESS: This is an 82-year-old male with 10-day history of shortness of breath, constant, moderate in intensity, has improved since he has been in the hospital. These is no hoarseness. No nasal congestion. PAST MEDICAL HISTORY: As noted in the chart by me. MEDICATIONS: As noted in the chart by me. ALLERGIES: NOTED IN THE CHART BY ME. PHYSICAL EXAMINATION: HEAD: Head is atraumatic and normocephalic. FACE: Good facial movements bilaterally. CONSTITUTIONAL: Well fed, well nourished. COMMUNICATION: Communicates well and appropriately. EXTERNAL NOSE AND EARS: No masses, no lesions, no erythema, no edema. INTERNAL NOSE: Deviated septum. No masses, no lesions, no erythema, no edema. ORAL CAVITY AND OROPHARYNX: No masses, no lesions, no erythema, no edema. LIPS AND GUMS: No masses, no lesions, no erythema, no edema. NECK: Supple. THYROID: No thyromegaly. No goiter. LYMPH NODES: No lymphadenopathy of the neck. ASSESSMENT: 1. Possible airway obstruction, not noted. 2. Deviated septum. PLAN: The patient is not tolerating a flexible laryngoscope therefore we will consider getting a CAT scan of the neck with contrast to rule out any possible airway problem. Cecil Perez MD
[2018-04-11] MEDS: MethylPREDNISolone 40 mg Vial IVP SCH ×4 (00:46→19:51)
[2018-04-11] MEDS: Piperacill/Tazo 3.375gm in Dex 3.375 GM/50 ML BAG IVPB SCH ×4 (00:46→19:50)
[2018-04-11] MEDS: Albuterol-Ipratrop 3 mg / 0.5 (3 ml) UD INH SCH ×3 (01:15→19:23)
[2018-04-11] MEDS: (Novolog) Insulin Aspart, Recombinant 100 u/ml 10 ml vial SC SCH ×9 (02:42→22:27)
--- NOTE | 2018-04-11 06:57 | CP.PCM.PN ---
<Stevenson Paredes - Last Filed: 04/11/18 15:47> Subjective - Date & Time of Evaluation Date of Evaluation: 04/11/18 Time of Evaluation: 13:50 - Subjective Subjective: PGY-1 Medicine Progress Note for Dr. Foreman's service S/E at bedside. Admits to sob and angina. Denies fevers, chills, chest pain, sob, n/v, constipation or diarrhea, dysuria. Objective - Vital Signs/Intake and Output Vital Signs (last 24 hours): Temp Pulse Resp BP Pulse Ox 97.9 F 89 20 159/79 H 95 04/10/18 23:05 04/11/18 00:50 04/10/18 23:05 04/11/18 00:50 04/10/18 23:05 Intake and Output: 04/10/18 04/11/18 18:59 06:59 Output Total 400 Balance -400 - Medications Medications: Current Medications Albuterol/Ipratropium (Duoneb 3 Mg/0.5 Mg (3 Ml) Ud) 3 ml INH RQ6 [facility] Last Admin: 04/11/18 01:15 Dose: 3 ml Amlodipine Besylate (Norvasc) 10 mg PO DAILY [facility] Dextrose (Dextrose 50% Inj) 0 ml IV STAT PRN; Protocol PRN Reason: Hypoglycemia Protocol Dextrose (Glutose 15) 0 gm PO ONCE PRN; Protocol PRN Reason: Hypoglycemia Protocol Finasteride (Proscar) 5 mg PO DAILY [facility] Last Admin: 04/10/18 09:53 Dose: 5 mg Furosemide (Lasix) 20 mg IVP DAILY [facility] Last Admin: 04/10/18 09:54 Dose: 20 mg Glucagon (Glucagen Diagnostic Kit) 0 mg IM STAT PRN; Protocol PRN Reason: Hypoglycemia Protocol Dextrose (Dextrose 5% In Water 1000 Ml) 1,000 mls @ 0 mls/hr IV .Q0M PRN; Protocol PRN Reason: Hypoglycemia Protocol Piperacillin Sod/Tazobactam Sod (Zosyn 3.375 Gm Iv Premix) 3.375 gm in 50 mls @ 100 mls/hr IVPB Q6H [facility]; Protocol Last Admin: 04/11/18 06:46 Dose: 100 mls/hr Insulin Aspart (Novolog) 8 unit SC TIDAC [facility] Last Admin: 04/10/18 17:32 Dose: 8 u Insulin Aspart (Novolog) 0 unit SC Q4H [facility]; Protocol Last Admin: 04/11/18 06:44 Dose: Not Given Insulin Glargine (Lantus) 45 unit SC HS [facility] Last Admin: 04/10/18 21:41 Dose: 45 unit Lisinopril (Zestril) 40 mg PO DAILY [facility] Last Admin: 04/10/18 09:54 Dose: 40 mg Methylprednisolone (Solu-Medrol) 40 mg IVP Q6H [facility] Last Admin: 04/11/18 06:46 Dose: 40 mg Metoprolol Succinate (Toprol Xl) 100 mg PO DAILY [facility] Last Admin: 04/10/18 09:53 Dose: 100 mg Pantoprazole Sodium (Protonix Inj) 40 mg IVP Q12H [facility] Last Admin: 04/11/18 05:08 Dose: 40 mg Tamsulosin HCl (Flomax) 0.4 mg PO DAILY [facility] Last Admin: 04/10/18 09:54 Dose: 0.4 mg - Labs Labs: 04/10/18 07:18 04/10/18 07:18 PT 12.2 SECONDS (9.7-12.2) 04/08/18 03:06 INR 1.1 04/08/18 03:06 APTT 31 SECONDS (21-34) 04/08/18 03:06 - Constitutional Appears: Non-toxic, No Acute Distress - Head Exam Head Exam: NORMAL INSPECTION, NORMOCEPHALIC - Eye Exam Eye Exam: EOMI, Normal appearance. absent: Nystagmus, Scleral icterus - ENT Exam ENT Exam: Mucous Membranes Moist - Respiratory Exam Respiratory Exam: Decreased Breath Sounds, NORMAL BREATHING PATTERN - Cardiovascular Exam Cardiovascular Exam: REGULAR RHYTHM, +S1, +S2. absent: Murmur - GI/Abdominal Exam GI & Abdominal Exam: Soft, Normal Bowel Sounds. absent: Distended, Firm, Guarding, Rigid, Tenderness - Extremities Exam Extremities Exam: Normal Inspection. absent: Calf Tenderness, Pedal Edema - Psychiatric Exam Psychiatric exam: Normal Affect, Normal Mood - Skin Skin Exam: Dry, Intact, Normal Color Assessment and Plan - Assessment and Plan (Free Text) Assessment: Patient is an 82 year old male w/ PMHx of IDDM, HTN, BPH, and b/l knee arthritis admitted for sob and chest pain. negative troponins. cardiac cath for today pending results. Cxray showed bilateral pleural effusions, unknown etiology, possible pulm HTN 2/2 PATRICK. 1. Shortness of Breath Assessment/Plan * Multifactorial including iron deficiency anemia, congestive heart failure, atelecasis * Cardiology, pulmonary, and gi on board * Ordered for repeat ABG today * Patient is on Solumedrol 40mg IV Q6H (active since 04/08/18) * likely accounting for leukocytosis * Zosyn 3.375mg IV q6h prn 2. Iron Deficiency Anemia Assessment/Plan * GI (Dr. Jason) natural resources extension educator-->help appreciated * Patient's heme-onc: Dr. Malagon * Ferritin: low, iron: low, High TIBC, high reticulocyte count, elevated RDW * Prior hgb: 8.7 in Feb 2018 * pending occult blood * order 04/08; 04/09; and today * Patient taking Motrin as outpatient for low back pain; and plavix for vascular stent in legs * Low ferritin * Patient reports he has had a colonoscopy 1-2 years ago * per cardiology, * From the family member its found out that Patient's primary spring coiler is Dr. Sweet. We will transfer patient's cardiology care to Dr. Bray x 2 are negative, ProBNP normal. EF Normal. Likely low to moderate cardiac risk for Colonoscopy under conscious sedation. If patient needs Colonoscopy, Cardiac point of view there is no contraindication. At this point do not see the additional therapeutic value for RHC. Will cancel RHC for tomorrow. All further cardiac management as per Dr. Sweet 3. Hoarseness Assessment/Plan * Behin- CT scan of neck pending 4. Elevated Lipase Assessment/Plan * CAT scan awaiting final read. Mild irregularity of the liver, probable chronic parenchymal liver disease. Benign simple left hepatic lobe cyst. Uncomplicated colonic diverticulosis. Minimal left pleural effusion. Mild right pleural effusion. Passive left airspace disease of both lower lobes. Prostatomegaly. Mild diffuse thickening of the bladder. However secondary to chronic bladder outlet obstruction. Unremarkable CT evaluation of the pancr eas. * Patient clinically does not look like he has acute pancreatitis. Belly is benign on exam. 5. Low back pain Assessment/Plan * Lumbar xray: Mild degenerative change. No acute findings. 6. Congestive Heart Failure, Diastolic Assessment/Plan * Cardiology (Dr. Andrade) natural resources extension educator->help appreciated * Transferred care to Dr. Sweet who has seen the patient in the past. * Chest xray: CHF/cardiomegaly * ECHO (04/08/18): reviewed with Dr. Andrade which showed normal EF; Diastolic CHF * CT Chest (04/08/18): small right sided effusion with monitor right basilar atelectasis. trace left effusion and minimal left basilar atelectasis. Mild pulmonary venous congestive changes are present. Small somewhat triangular shaped nodular opacity in the right middle lobe that measures approximately 4.2mm. Subjacent slightly more inferiorly located 5mm nodular opacity. cardiomegaly with small pericardial effusion. small amount of perihepatic ascites again noted. * Lasix 20mg IVP BID * Lisinopril 40mg PO daily * Toprol XL 100mg PO daily * Daily weight * Intake and outputs * Aspirin off given anemia 7. Diabetes Assessment/Plan * sugars uncontrolled since starting steroids * hgba1c: 8.7 * Patient required 26 units of regular insulin over 24 hours. * Insulin regiment adjusted: * Novolog 8 units TIDAC * Lantus 55 unit subq HS * Changed coverage to Novolog low dose protocol * Hypoglycemic protocol 8. Enlarged Prostate Assessment/Plan * Flomax 0.4mg PO Daily * Proscar 5mg PO daily 9. Resistant Hypertension Assessment/Plan * Uncontrolled * Lasix 20mg IVP daily * Lisinopril 40mg PO daily * Toprol XL 100mg PO daily * Norvasc 10mg Po daily * Tridal drip; dc when on floors and add hydralazine goal sbp<160 10. Hyponatremia(resolved) Assessment/Plan * Serum osmolarity: normal * Urine osmolarity: 251 * Urine sodium: 75 11. History of peripheral vascular disease Assessment/Plan * Patient has been taking plavix as outpatient for vascular stents 11. Prophylactic measure * Protonix 40mg [id number] * Hold anticoagulation given anemia * scds contraindicated given history of PAD * PT/OT eval PGY-1 Stevenson Zheng d/w Dr. Foreman <Debora Foreman V - Last Filed: 04/14/18 13:54> Objective - Vital Signs/Intake and Output Vital Signs (last 24 hours): Temp Pulse Resp BP Pulse Ox 98.4 F 91 H 20 131/62 93 L 04/14/18 07:30 04/14/18 07:30 04/14/18 07:30 04/14/18 10:29 04/14/18 07:30 Intake and Output: 04/14/18 04/14/18 06:59 18:59 Intake Total 370 Balance 370 - Medications Medications: Current Medications Albuterol/Ipratropium (Duoneb 3 Mg/0.5 Mg (3 Ml) Ud) 3 ml INH RQ6 [facility] Last Admin: 04/14/18 02:00 Dose: Not Given Amlodipine Besylate (Norvasc) 10 mg PO DAILY [facility] Last Admin: 04/14/18 10:29 Dose: 10 mg Dextrose (Dextrose 50% Inj) 0 ml IV STAT PRN; Protocol PRN Reason: Hypoglycemia Protocol Dextrose (Glutose 15) 0 gm PO ONCE PRN; Protocol PRN Reason: Hypoglycemia Protocol Finasteride (Proscar) 5 mg PO DAILY [facility] Last Admin: 04/14/18 10:28 Dose: 5 mg Furosemide (Lasix) 20 mg IVP DAILY [facility] Last Admin: 04/14/18 10:29 Dose: 20 mg Glucagon (Glucagen Diagnostic Kit) 0 mg IM STAT PRN; Protocol PRN Reason: Hypoglycemia Protocol Hydralazine HCl (Apresoline) 50 mg PO Q8H [facility] Last Admin: 04/14/18 13:38 Dose: 50 mg Dextrose (Dextrose 5% In Water 1000 Ml) 1,000 mls @ 0 mls/hr IV .Q0M PRN; Protocol PRN Reason: Hypoglycemia Protocol Piperacillin Sod/Tazobactam Sod (Zosyn 3.375 Gm Iv Premix) 3.375 gm in 50 mls @ 100 mls/hr IVPB Q6H [facility]; Protocol Last Admin: 04/14/18 10:29 Dose: 100 mls/hr Insulin Aspart (Novolog) 0 unit SC ACHS [facility]; Protocol Last Admin: 04/14/18 13:37 Dose: 6 units Insulin Aspart (Novolog) 14 unit SC TIDAC [facility] Last Admin: 04/14/18 13:37 Dose: 14 u Insulin Glargine (Lantus) 65 unit SC HS [facility] Last Admin: 04/13/18 22:10 Dose: 65 units Lactobacillus Acidophilus (Bacid Acidophilus) 1 cap PO BID [facility] Last Admin: 04/14/18 10:29 Dose: 1 cap Lisinopril (Zestril) 40 mg PO DAILY [facility] Last Admin: 04/14/18 10:29 Dose: 40 mg Methylprednisolone (Solu-Medrol) 40 mg IVP Q12H [facility] Last Admin: 04/14/18 13:38 Dose: 40 mg Metoprolol Succinate (Toprol Xl) 100 mg PO DAILY [facility] Last Admin: 04/14/18 10:29 Dose: 100 mg Metoprolol Tartrate (Lopressor) 5 mg IVP Q6H PRN PRN Reason: SBP>160 Pantoprazole Sodium (Protonix Inj) 40 mg IVP Q12H [facility] Last Admin: 04/14/18 03:59 Dose: 40 mg Tamsulosin HCl (Flomax) 0.4 mg PO DAILY [facility] Last Admin: 04/14/18 10:29 Dose: 0.4 mg - Labs Labs: 04/14/18 07:29 04/14/18 07:29 PT 12.2 SECONDS (9.7-12.2) 04/08/18 03:06 INR 1.1 04/08/18 03:06 APTT 31 SECONDS (21-34) 04/08/18 03:06 Assessment and Plan (1) Morbid obesity Status: Acute (2) Iron deficiency anemia Status: Acute (3) Hypoglycemia due to type 1 diabetes mellitus Status: Acute (4) Diastolic CHF Status: Acute (5) Hypertensive urgency Status: Acute (6) Shortness of breath Status: Acute (7) Prophylactic measure Status: Acute Attending/Attestation - Attestation I have personally seen and examined this patient.: Yes I have fully participated in the care of the patient.: Yes I have reviewed all pertinent clinical information, including history, physical exam and plan: Yes Notes (Text): This is a late computer entry for April 11, 2018. Patient seen and examined case discussed with medical practice administrator Patient seen in cardiac Inventory Management Specialist. Patient has completed cardiac cath discussed with Dr. Reddy who is covering for Dr. Sweet noted for patient has extremely uncontrolled high blood pressure. Varies between a systolic of 200 240s in the Inventory Management Specialist will need aggressive medical therapy to control blood pressure. I also did discuss with Dr. Sweet who have who has reviewed the cardiac cath images noted patient is cardiac stable at this time no further intervention in regards to the coronary arteries just aggressive medical therapy and states that patient can proceed with GI workup for the anemia. We have adjusted patient's blood pressure medications accordingly we have added hydralazine to see if we can get patient's blood pressure towards more towards systolic of 120s. We will still need to continue to optimize patient's insulin regimen given that it is un controlled at baseline. We will follow with palm to determine when we can taper IV steroids. Patient is pending CT scan ordered by ENT as well.
[2018-04-11 06:59] LABS: BASO % 0.2 % (0.0-2.0); HEMOGLOBIN 8.2 g/dL (12.0-18.0); LYMPH # 0.8 K/uL (1.0-4.3); MEAN CELL VOLUME 68.7 fL (80.0-94.0); MEAN CORPUSCULAR HEMOGLOBIN 20.8 pg (27.0-31.0); MEAN CORPUSCULAR HGB CONC 30.2 g/dL (33.0-37.0); MEAN PLATELET VOLUME 7.9 fL (7.2-11.7); MONO # 0.4 K/uL (0.0-0.8); MONO % 2.3 % (0.0-10.0); NEUT # 14.6 K/uL (1.8-7.0); NEUT % 92.5 % (50.0-75.0); NRBC % 0.2 % (0.0-2.0); PLATELET COUNT 367 K/uL (130-400); RBC 3.95 Mil/uL (4.40-5.90); WHITE BLOOD COUNT 15.7 K/uL (4.8-10.8)
[2018-04-11 07:47] LABS: ALB/GLOB RATIO 1.2 (1.0-2.1); ALBUMIN 3.5 g/dL (3.5-5.0); ALT/SGPT 45 U/L (21-72); AST/SGOT 53 U/L (17-59); BLOOD UREA NITROGEN 24 mg/dL (9-20); CALCIUM 8.1 mg/dl (8.6-10.4); GFR NON-AFRICAN AMERICAN > 60
[2018-04-11 08:46] LABS: LYMPHOCYTE 3 % (20-40); MONOCYTE 4 % (0-10); NEUTROPHIL 93 % (50-75); TOTAL CELLS COUNTED 100
[2018-04-11 08:47] LABS: ANISOCYTOSIS SLIGHT; PLATELET ESTIMATE NORMAL (NORMAL)
[2018-04-11 08:48] LABS: HYPOCHROMIC MODERATE; MICROCYTOSIS SLIGHT; OVALOCYTES SLIGHT; POLYCHROMIC SLIGHT; TARGET CELLS SLIGHT
[2018-04-11] MEDS: Metoprolol Succinate 100 mg XL Tab PO SCH (09:30)
[2018-04-11] MEDS ORDERED: Iohexol 350mg/ml 100 ML ONE ×3 (09:31→12:53)
[2018-04-11] MEDS ORDERED: Midazolam 2 MG/2 ML VIAL ONE ×2 (11:31→12:49)
[2018-04-11] MEDS ORDERED: Labetalol 5mg/ml (4ml) ONE (11:40)
[2018-04-11] MEDS ORDERED: Nitroglycerin 50mg in D5W 50 MG/250 ML BOTTLE IV ONE (12:56)
--- NOTE | 2018-04-11 13:33 | CP.PCM.PN ---
Subjective - Date & Time of Evaluation Date of Evaluation: 04/11/18 Time of Evaluation: 09:00 - Subjective Subjective: Patient seen and examined Breathing better but still has some wheezing Patient was seen by ENT Patient seen and examined by Dr. Sweet his medical assistant cardiology and the plan is cardiac cath because of his abnormal stress test in the past Objective - Vital Signs/Intake and Output Vital Signs (last 24 hours): Temp Pulse Resp BP Pulse Ox 98.3 F 82 20 176/78 H 100 04/11/18 07:35 04/11/18 07:35 04/11/18 07:35 04/11/18 07:35 04/11/18 07:35 Intake and Output: 04/11/18 04/11/18 06:59 18:59 Intake Total 160 Output Total 1400 Balance -1240 - Medications Medications: Current Medications Albuterol/Ipratropium (Duoneb 3 Mg/0.5 Mg (3 Ml) Ud) 3 ml INH RQ6 [facility] Last Admin: 04/11/18 13:26 Dose: Not Given Amlodipine Besylate (Norvasc) 10 mg PO DAILY [facility] Dextrose (Dextrose 50% Inj) 0 ml IV STAT PRN; Protocol PRN Reason: Hypoglycemia Protocol Dextrose (Glutose 15) 0 gm PO ONCE PRN; Protocol PRN Reason: Hypoglycemia Protocol Finasteride (Proscar) 5 mg PO DAILY [facility] Last Admin: 04/10/18 09:53 Dose: 5 mg Furosemide (Lasix) 20 mg IVP DAILY [facility] Last Admin: 04/10/18 09:54 Dose: 20 mg Glucagon (Glucagen Diagnostic Kit) 0 mg IM STAT PRN; Protocol PRN Reason: Hypoglycemia Protocol Dextrose (Dextrose 5% In Water 1000 Ml) 1,000 mls @ 0 mls/hr IV .Q0M PRN; Pr otocol PRN Reason: Hypoglycemia Protocol Piperacillin Sod/Tazobactam Sod (Zosyn 3.375 Gm Iv Premix) 3.375 gm in 50 mls @ 100 mls/hr IVPB Q6H [facility]; Protocol Last Admin: 04/11/18 06:46 Dose: 100 mls/hr Insulin Aspart (Novolog) 8 unit SC TIDAC [facility] Last Admin: 04/11/18 07:30 Dose: Not Given Insulin Aspart (Novolog) 0 unit SC Q4H [facility]; Protocol Last Admin: 04/11/18 06:44 Dose: Not Given Insulin Glargine (Lantus) 45 unit SC HS [facility] Last Admin: 04/10/18 21:41 Dose: 45 unit Lisinopril (Zestril) 40 mg PO DAILY [facility] Last Admin: 04/10/18 09:54 Dose: 40 mg Methylprednisolone (Solu-Medrol) 40 mg IVP Q6H [facility] Last Admin: 04/11/18 06:46 Dose: 40 mg Metoprolol Succinate (Toprol Xl) 100 mg PO DAILY [facility] Last Admin: 04/11/18 09:30 Dose: 100 mg Pantoprazole Sodium (Protonix Inj) 40 mg IVP Q12H [facility] Last Admin: 04/11/18 05:08 Dose: 40 mg Tamsulosin HCl (Flomax) 0.4 mg PO DAILY [facility] Last Admin: 04/10/18 09:54 Dose: 0.4 mg - Labs Labs: 04/11/18 06:51 04/11/18 06:51 PT 12.2 SECONDS (9.7-12.2) 04/08/18 03:06 INR 1.1 04/08/18 03:06 APTT 31 SECONDS (21-34) 04/08/18 03:06 - Head Exam Head Exam: ATRAUMATIC, NORMOCEPHALIC - ENT Exam ENT Exam: Mucous Membranes Moist - Neck Exam Neck Exam: Normal Inspection - Respiratory Exam Respiratory Exam: Rhonchi, Wheezes - Cardiovascular Exam Cardiovascular Exam: REGULAR RHYTHM - GI/Abdominal Exam GI & Abdominal Exam: Soft, Normal Bowel Sounds - Extremities Exam Extremities Exam: Full ROM, Normal Inspection - Neurological Exam Neurological Exam: Alert Assessment and Plan (1) Shortness of breath Assessment & Plan: Most likely secondary to bronchospasm/asthma Continue nebulizer treatment and steroids Possible cardiac cath Sleep study as outpatient Status: Acute (2) Diastolic CHF Status: Acute
--- NOTE | 2018-04-11 13:49 | CATH ---
APPROVED REPORT Date of service: 04/11/2018 Procedure(s) performed: Complete Heart Catheterization ultrasound guided micro puncture for access HISTORY hypertension: dyslipidemia, family history of premature CAD. INDICATION The indication(s) include : positive stress test, chest pain. CASE TECHNIQUE The patient was brought electively to the Cardiac Catheterization Laboratory in a fasting state and was prepped and draped in a sterile manner. The right femoral groin was infiltrated with 2% Lidocaine subcutaneous anesthesia. A sheath was inserted into the right femoral artery without difficulty. Coronary angiography was performed using coronary diagnostic catheters. The left coronary system was accessed and visualized with a Diagnostic catheter. The right coronary system was accessed and visualized with a Diagnostic catheter. The left ventricle was accessed and visualized with a Diagnostic catheter. Left ventricular/Aortic Valve gradient assessed on pullback. Left ventriculogram was performed in JOO projection. Hemostasis was obtained with manual pressure following sheath removal without any complications. The patient tolerated the procedure well and there were no complications associated with the procedure. micro puncture needle with US guidance needed for vascular access. Vessel Analysis The patient's coronary anatomy is right dominant. The left main coronary artery is a medium size vessel without stenosis. The left main bifurcates to the left anterior descending and circumflex. The left anterior descending artery is a large size vessel with intimal irregularities. The first diagonal branch is a medium size vessel without significant stenosis. The circumflex artery is a medium size vessel with stenosis. There is a 40% stenosis in the ostial segment. The right coronary artery is a large size vessel with stenosis. There is a 50% stenosis in the proximal segment. Left Ventricle The left ventricle is normal in size with normal contractility. The left ventricular ejection fraction is estimated to be 70%. The left ventricular end diastolic pressure is 42 mmHg. There was no gradient across the aortic valve upon pullback. Conclusion Moderate Double Vessel CAD [place] III FLOW THROUGHOUT Recommendations Aggressive Medical TherapyCardiac Risk Reduction Program Medical Therapy
[2018-04-11] MEDS: (Lantus) Insulin Glargine, Recombinant SC SCH (22:26)
[2018-04-11] MEDS ORDERED: (Novolog) Insulin Aspart, Recombinant 100 u/ml 10 ml vial SC SCH (23:58)
[2018-04-12] MEDS: Piperacill/Tazo 3.375gm in Dex 3.375 GM/50 ML BAG IVPB SCH ×4 (00:38→19:12)
[2018-04-12] MEDS: MethylPREDNISolone 40 mg Vial IVP SCH ×4 (00:38→22:09)
[2018-04-12] MEDS: Albuterol-Ipratrop 3 mg / 0.5 (3 ml) UD INH SCH ×4 (01:10→19:33)
[2018-04-12] MEDS ORDERED: (Novolog) Insulin Aspart, Recombinant 100 u/ml 10 ml vial SC STA (02:56)
[2018-04-12] MEDS: (Novolog) Insulin Aspart, Recombinant 100 u/ml 10 ml vial SC SCH ×7 (07:03→22:08)
[2018-04-12 07:23] LABS: BASO % 0.1 % (0.0-2.0); HEMOGLOBIN 8.2 g/dL (12.0-18.0); LYMPH # 0.7 K/uL (1.0-4.3); LYMPH % 5.1 % (20.0-40.0); MEAN CELL VOLUME 68.5 fL (80.0-94.0); MEAN CORPUSCULAR HEMOGLOBIN 20.8 pg (27.0-31.0); MEAN CORPUSCULAR HGB CONC 30.4 g/dL (33.0-37.0); MONO # 0.3 K/uL (0.0-0.8); MONO % 2.6 % (0.0-10.0); NEUT # 11.8 K/uL (1.8-7.0); NEUT % 92.2 % (50.0-75.0); NRBC % 0.4 % (0.0-2.0); PLATELET COUNT 380 K/uL (130-400); RBC 3.94 Mil/uL (4.40-5.90); WHITE BLOOD COUNT 12.8 K/uL (4.8-10.8)
[2018-04-12 08:07] LABS: ALB/GLOB RATIO 1.3 (1.0-2.1); ALBUMIN 3.6 g/dL (3.5-5.0); ALT/SGPT 51 U/L (21-72); AST/SGOT 45 U/L (17-59); BLOOD UREA NITROGEN 27 mg/dL (9-20); CALCIUM 8.3 mg/dl (8.6-10.4); GFR NON-AFRICAN AMERICAN > 60
--- NOTE | 2018-04-12 08:25 | CP.PCM.PN ---
<Deobra Foreman V - Last Filed: 04/12/18 11:29> Subjective - Subjective Subjective: Medical attending note Patient seen, examined, case discussed with medical technologist. Patient reporting that he feels "asthma over the denies any chest pain, abdominal pain, reports he had a bowel movement denies black stool I did advise him the next has a bowel movement as there is no see if there is any black stool or not patient denies leg pains. Patient is eager to go home I did indicate to him that he needs to be seen by the GI doctor given his anemia. I did speak with cardiology last night he is stable from their standpoint to proceed with GI evaluation I did speak with Dr. Gallegos this morning for possible upper endoscopy for Saturday. Did speak with pulmonary as well to attempt to taper off the steroid. Patient blood pressure uncontrolled unclear if it is due to small BP cuff for because he requires higher doses of medications I did increase his hydralazine to 50 p.o. daily I declined resident to get make sure the nursing is using a bigger cuff patient's obese habitus. We will need to spe ak with the family in terms of plan. Objective - Vital Signs/Intake and Output Vital Signs (last 24 hours): Temp Pulse Resp BP Pulse Ox 99.2 F 83 20 163/68 H 96 04/12/18 07:00 04/12/18 07:00 04/12/18 07:00 04/12/18 09:50 04/12/18 07:00 Intake and Output: 04/12/18 04/12/18 06:59 18:59 Intake Total 260 Output Total 800 Balance -540 - Medications Medications: Current Medications Albuterol/Ipratropium (Duoneb 3 Mg/0.5 Mg (3 Ml) Ud) 3 ml INH RQ6 [facility] Last Admin: 04/12/18 07:26 Dose: 3 ml Amlodipine Besylate (Norvasc) 10 mg PO DAILY [facility] Last Admin: 04/11/18 13:15 Dose: 10 mg Dextrose (Dextrose 50% Inj) 0 ml IV STAT PRN; Protocol PRN Reason: Hypoglycemia Protocol Dextrose (Glutose 15) 0 gm PO ONCE PRN; Protocol PRN Reason: Hypoglycemia Protocol Finasteride (Proscar) 5 mg PO DAILY [facility] Last Admin: 04/12/18 09:49 Dose: 5 mg Furosemide (Lasix) 20 mg IVP DAILY [facility] Last Admin: 04/12/18 09:50 Dose: 20 mg Glucagon (Glucagen Diagnostic Kit) 0 mg IM STAT PRN; Protocol PRN Reason: Hypoglycemia Protocol Hydralazine HCl (Apresoline) 25 mg PO Q8H [facility] Last Admin: 04/12/18 02:02 Dose: 25 mg Dextrose (Dextrose 5% In Water 1000 Ml) 1,000 mls @ 0 mls/hr IV .Q0M PRN; Protocol PRN Reason: Hypoglycemia Protocol Piperacillin Sod/Tazobactam Sod (Zosyn 3.375 Gm Iv Premix) 3.375 gm in 50 mls @ 100 mls/hr IVPB Q6H [facility]; Protocol Last Admin: 04/12/18 06:30 Dose: 100 mls/hr Insulin Aspart (Novolog) 8 unit SC TIDAC [facility] Last Admin: 04/12/18 08:27 Dose: 8 u Insulin Aspart (Novolog) 0 unit SC ACHS [facility]; Protocol Last Admin: 04/12/18 07:03 Dose: 10 units Insulin Glargine (Lantus) 55 unit SC HS [facility] Last Admin: 04/11/18 22:26 Dose: 55 units Lisinopril (Zestril) 40 mg PO DAILY [facility] Last Admin: 04/12/18 09:49 Dose: 40 mg Methylprednisolone (Solu-Medrol) 40 mg IVP Q6H [facility] Last Admin: 04/12/18 06:16 Dose: 40 mg Metoprolol Succinate (Toprol Xl) 100 mg PO DAILY [facility] Last Admin: 04/11/18 09:30 Dose: 100 mg Pantoprazole Sodium (Protonix Inj) 40 mg IVP Q12H [facility] Last Admin: 04/12/18 03:12 Dose: 40 mg Tamsulosin HCl (Flomax) 0.4 mg PO DAILY [facility] Last Admin: 04/12/18 09:49 Dose: 0.4 mg - Labs Labs: 04/12/18 07:02 04/12/18 07:02 PT 12.2 SECONDS (9.7-12.2) 04/08/18 03:06 INR 1.1 04/08/18 03:06 APTT 31 SECONDS (21-34) 04/08/18 03:06 - Constitutional Appears: Non-toxic, No Acute Distress - Head Exam Head Exam: NORMAL INSPECTION Additional comments: obese habitus short neck - Eye Exam Eye Exam: EOMI - ENT Exam ENT Exam: Mucous Membranes Dry - Respiratory Exam Respiratory Exam: Decreased Breath Sounds, NORMAL BREATHING PATTERN. absent: Rales, Rhonchi - Cardiovascular Exam Cardiovascular Exam: REGULAR RHYTHM, +S1, +S2 - GI/Abdominal Exam GI & Abdominal Exam: Soft, Normal Bowel Sounds. 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 I did speak with cardiology last night he is stable from their standpoint to proceed with GI evaluation I did speak with Dr. Gallegos this morning for possible upper endoscopy for Saturday. Did speak with pulmonary as well to attempt to taper off the steroid. Patient blood pressure uncontrolled unclear if it is due to small BP cuff for because he requires higher doses of medications I did increase his hydralazine to 50 p.o. daily I declined resident to get make sure the nursing is using a bigger cuff patient's obese habitus. We will need to speak with the family in terms of plan. Assessment/Plan 1. Shortness of Breathe Assessment/Plan * Multifactorial including iron deficiency anemia, congestive heart failure, atelecasis * Cardiology, pulmonary, and gi on board * Patient is on Solumedrol 40mg IV Q6H (active since 04/08/18); taper to IV 8H * likely accounting for leukocytosis * ENT has attempted bedside larynoscopy-->patient could not tolerate it; kept fighting off attempt with ENT on 04/10/18 * Pending CT soft tissue neck * Cardiology completed cath * stable from standpoint for GI workup; aggressive medical therapy * Pulmonary * outpatient sleep study * duoneb/taper off steroids 2. Iron Deficiency Anemia Assessment/Plan * GI (Dr. Jason) special education administrator-->help appreciated * Patient's heme-onc: Dr. Malagon * Ferritin: low, iron: low, High TIBC, high reticulocyte count, elevated RDW * Prior hgb: 8.7 in Feb 2018 * pending occult blood * order 04/08; 04/09; and 04/10 * Patient taking Motrin as outpatient for low back pain; and plavix for vascular stent in legs * Low ferritin * Patient reports he has had a colonoscopy 1-2 years ago * per cardiology, * Discussed with Dr. Sweet, stable from cardiac standpoint to proceed with GI workup for anemia. * Discussed with Dr. Gallegos, will schedule for upper endoscopy for Saturday. 3. Elevated Lipase Assessment/Plan * CAT scan awaiting final read. Mild irregularity of the liver, probable chronic parenchymal liver disease. Benign simple left hepatic lobe cyst. Uncomplicated colonic diverticulosis. Minimal left pleural effusion. Mild right pleural effusion. Passive left airspace disease of both lower lobes. Prostatomegaly. Mild diffuse thickening of the bladder. However secondary to chronic bladder outlet obstruction. Unremarkable CT evaluation of the pancreas. * Patient clinically does not look like he has acute pancreatitis. Belly is benign on exam. 4. Low back pain Assessment/Plan * Lumbar xray: Mild degenerative change. No acute findings. 5. Congestive Heart Failure, Diastolic Coronary Artery Disease Assessment/Plan * Cardiology (Dr. Sweet) help appreciated * Chest xray: CHF/cardiomegaly * ECHO (04/08/18): reviewed with Dr. Andrade which showed normal EF; Diastolic CHF * CT Chest (04/08/18): small right sided effusion with monitor right basilar atelectasis. trace left effusion and minimal left basilar atelectasis. Mild pulmonary venous congestive changes are present. Small somewhat triangular shaped nodular opacity in the right middle lobe that measures approximately 4.2mm. Subjacent slightly more inferiorly located 5mm nodular opacity. cardiomegaly with small pericardial effusion. small amount of perihepatic ascites again noted. * Cardiac cath (04/11/18): aggressive medical therapy/cardiac risk/medical therapy; moderate double vessel CAD, KALEIGH II flow throughout * Lasix 20mg IVP BID * Lisinopril 40mg PO daily * Toprol XL 100mg PO daily * Norvasc 10mg Po daily * Increase Hydralazine 50mg PO Q8H * Daily weight * Intake and outputs * Aspirin off given anemia 6. Diabetes Assessment/Plan * sugars uncontrolled since starting steroids and discussed with PMD; noncompliant * hgba1c: 8.7 * Patient required * Insulin regiment adjusted: * Novolog 4 unit subq ACHS-->increased to Novolog 8 units TIDAC * Lantus 55 units subqHS * Changed coverage to Novolog low dose protocol * Hypoglycemic protocol 7. Enlarged Prostate Assessment/Plan * Flomax 0.4mg PO Daily * Proscar 5mg PO daily 8. Hypertension, Uncontrolled Assessment/Plan * Uncontrolled * Lasix 20mg IVP daily * Lisinopril 40mg PO daily * Toprol XL 100mg PO daily * Norvasc 10mg Po daily * IncreaseHydralazine 50mg PO Q8H 9. Hyponatremia Assessment/Plan * Serum osmolarity: normal * Urine osmolarity: 251 * Urine sodium: 75 * improving 10. History of peripheral vascular disease Assessment/Plan * Patient has been taking plavix as outpatient for vascular stents; he is off given acute anemia 11. Prophylactic measure * Protonix 40mg [id number] * Hold anticoagulation given anemia * scds contraindicated given history of PAD * PT/OT eval Disposition: Optimize blood pressure control, will need modify insulin regimen as we taper IV steroids; per cardio standpoint stable for GI workup. discussed with GI, schedule for upper endoscopy for Saturday04/14/18 <Jefe Richter - Last Filed: 04/12/18 21:57> Subjective - Date & Time of Evaluation Date of Evaluation: 04/12/18 Time of Evaluation: 08:00 - Subjective Subjective: PGY2 Medicine Note for Dr. Foreman Patient seen and examined this morning at bedside. His blood pressure and blood sugars have been uncontrolled. Patient reports his breathing is almost back to normal and he is feeling well. Patient is hopeful to go home soon. He denies bloody or black stool. Denies fevers, chills, nausea, vomiting, diarrhea, constipation, chest pain or abdominal pain. Objective - Vital Signs/Intake and Output Vital Signs (last 24 hours): Temp Pulse Resp BP Pulse Ox 99.2 F 83 20 168/76 H 96 04/12/18 07:00 04/12/18 07:00 04/12/18 07:00 04/12/18 07:00 04/12/18 07:00 Intake and Output: 04/12/18 04/12/18 06:59 18:59 Intake Total 260 Output Total 800 Balance -540 - Medications Medications: Current Medications Albuterol/Ipratropium (Duoneb 3 Mg/0.5 Mg (3 Ml) Ud) 3 ml INH RQ6 [facility] Last Admin: 04/12/18 07:26 Dose: 3 ml Amlodipine Besylate (Norvasc) 10 mg PO DAILY [facility] Last Admin: 04/11/18 13:15 Dose: 10 mg Dextrose (Dextrose 50% Inj) 0 ml IV STAT PRN; Protocol PRN Reason: Hypoglycemia Protocol Dextrose (Glutose 15) 0 gm PO ONCE PRN; Protocol PRN Reason: Hypoglycemia Protocol Finasteride (Proscar) 5 mg PO DAILY [facility] Last Admin: 04/11/18 10:00 Dose: Not Given Furosemide (Lasix) 20 mg IVP DAILY [facility] Last Admin: 04/11/18 13:30 Dose: 20 mg Glucagon (Glucagen Diagnostic Kit) 0 mg IM STAT PRN; Protocol PRN Reason: Hypoglycemia Protocol Hydralazine HCl (Apresoline) 25 mg PO Q8H [facility] Last Admin: 04/12/18 02:02 Dose: 25 mg Dextrose (Dextrose 5% In Water 1000 Ml) 1,000 mls @ 0 mls/hr IV .Q0M PRN; Protocol PRN Reason: Hypoglycemia Protocol Piperacillin Sod/Tazobactam Sod (Zosyn 3.375 Gm Iv Premix) 3.375 gm in 50 mls @ 100 mls/hr IVPB Q6H [facility]; Protocol Last Admin: 04/12/18 06:30 Dose: 100 mls/hr Insulin Aspart (Novolog) 8 unit SC TIDAC [facility] Last Admin: 04/11/18 17:45 Dose: 8 u Insulin Aspart (Novolog) 0 unit SC ACHS [facility]; Protocol Last Admin: 04/12/18 07:03 Dose: 10 units Insulin Glargine (Lantus) 55 unit SC HS [facility] Last Admin: 04/11/18 22:26 Dose: 55 units Lisinopril (Zestril) 40 mg PO DAILY [facility] Last Admin: 04/11/18 13:15 Dose: 40 mg Methylprednisolone (Solu-Medrol) 40 mg IVP Q6H [facility] Last Admin: 04/12/18 06:16 Dose: 40 mg Metoprolol Succinate (Toprol Xl) 100 mg PO DAILY [facility] Last Admin: 04/11/18 09:30 Dose: 100 mg Pantoprazole Sodium (Protonix Inj) 40 mg IVP Q12H [facility] Last Admin: 04/12/18 03:12 Dose: 40 mg Tamsulosin HCl (Flomax) 0.4 mg PO DAILY [facility] Last Admin: 04/11/18 10:00 Dose: Not Given - Labs Labs: 04/12/18 07:02 04/12/18 07:02 PT 12.2 SECONDS (9.7-12.2) 04/08/18 03:06 INR 1.1 04/08/18 03:06 APTT 31 SECONDS (21-34) 04/08/18 03:06 Assessment and Plan - Assessment and Plan (Free Text) Plan: Patient is an 82 year old male w/ PMHx of IDDM, HTN, BPH, and b/l knee arthritis admitted for sob and chest pain. negative troponins. cardiac cath for today pending results. Cxray showed bilateral pleural effusions, unknown etiology, possible pulm HTN 2/2 PATRICK. Shortness of Breath * Multifactorial including iron deficiency anemia, congestive heart failure, atelecasis * Cardiology, pulmonary, and gi on board * Ordered for repeat ABG today * Patient is on Solumedrol 40mg IVP Q6H (active since 04/08/18) * likely accounting for leukocytosis * decreased to Solumedrol 40mg IVP Q8H * Medications * Zosyn 3.375mg IV q6h prn * Duonebs Iron Deficiency Anemia * GI (Dr. Jason) special education administrator-->help appreciated * Patient's heme-onc: Dr. Malagon * Ferritin: low, iron: low, High TIBC, high reticulocyte count, elevated RDW * Prior hgb: 8.7 in Feb 2018 * pending occult blood * order 04/08; 04/09; and today * Patient taking Motrin as outpatient for low back pain; and plavix for vascular stent in legs * Low ferritin * Patient reports he has had a colonoscopy 1-2 years ago * per cardiology, * From the family member its found out that Patient's primary beading sawyer is Dr. Sweet. We will transfer patient's cardiology care to Dr. SweetTrops x 2 are negative, ProBNP normal. EF Normal. Likely low to moderate cardiac risk for Colonoscopy under conscious sedation. If patient needs Colonoscopy, Cardiac point of view there is no contraindication. At this point do not see the additional therapeutic value for RHC. Will cancel RHC for tomorrow. All further cardiac management as per Dr. Sweet Hoarseness (improving) * ENT consulted, Chris * CT scan of neck 04/11/18 * Limited study due to swallowing motion artifact which obscures and distorts soft tissue detail of several axial images from the submandibular/sublingual region to the level of the superior aspect of the thyroid cartilage. * There is mild medial position of the right true vocal cord and asymmetry of the pyriform sinuses with slight dilatation of the ipsilateral pyriform sinus compared to the left side.. There are no obvious masses seen the level of the true vocal cord; rule out vocal cord paresis/paralysis. * Mass like appearance of the base of the tongue with questionable a trophy/fatty replacement of the anterior type. Prominent lingual tonsils may contribute to the appearance. Consider follow-up of pre and post- contrast MRI of the neck to exclude a base of tongue mass. * No significant cervical lymphadenopathy Elevated Lipase Abd/Pelvis CT: * Mild irregularity of the liver, probable chronic parenchymal liver disease. Benign simple left hepatic lobe cyst. Uncomplicated colonic diverticulosis. Minimal left pleural effusion. Mild right pleural effusion. Passive left airspace disease of both lower lobes. Prostatomegaly. Mild diffuse thickening of the bladder. However secondary to chronic bladder outlet obstruction. Unremarkable CT evaluation of the pancreas. Patient clinically does not look like he has acute pancreatitis. Belly is benign on exam. Low back pain * Lumbar xray: Mild degenerative change. No acute findings. Congestive Heart Failure, Diastolic * Cardiology (Dr. Andrade) special education administrator->help appreciated * Transferred care to Dr. Sweet who has seen the patient in the past. * Chest xray: CHF/cardiomegaly * ECHO (04/08/18): reviewed with Dr. Andrade which showed normal EF; Diastolic CHF * CT Chest (04/08/18): small right sided effusion with monitor right basilar atelectasis. trace left effusion and minimal left basilar atelectasis. Mild pulmonary venous congestive changes are present. Small somewhat triangular shaped nodular opacity in the right middle lobe that measures approximately 4.2mm. Subjacent slightly more inferiorly located 5mm nodular opacity. cardiom egaly with small pericardial effusion. small amount of perihepatic ascites again noted. * Daily weight * Intake and outputs * Medications * Lasix 20mg IVP daily * Lisinopril 40mg PO daily * Toprol XL 100mg PO daily * Aspirin off given anemia Diabetes * sugars uncontrolled since starting steroids * hgba1c: 8.7 * Medications: * Novolog 8 units TIDAC * Lantus 55 unit subq HS * Hypoglycemic protocol Enlarged Prostate * Flomax 0.4mg PO Daily * Proscar 5mg PO daily Resistant Hypertension Uncontrolled continue to monitor Medications: * Lasix 20mg IVP daily * Lisinopril 40mg PO daily * Amlodipine 10mg PO daily * Toprol XL 100mg PO daily * Hydralazine 25mg PO q8h --> increased to 50mg PO q8h Hyponatremia(resolved) * Serum osmolarity: normal * Urine osmolarity: 251 * Urine sodium: 75 History of peripheral vascular disease * Patient has been taking plavix as outpatient for vascular stents Prophylactic measure * Protonix 40mg [id number] * Hold anticoagulation given anemia * scds contraindicated given history of PAD * PT/OT eval Case discussed with Dr. Kellen Mayberry Rober PGY2
--- NOTE | 2018-04-12 09:29 | CP.PCM.PN ---
Subjective - Date & Time of Evaluation Date of Evaluation: 04/10/18 Time of Evaluation: 12:05 - Subjective Subjective: f/u anemia. Denies abdom pain, Rb, melena, fever, SZ, hematuria, hemoptysis Objective - Vital Signs/Intake and Output Vital Signs (last 24 hours): Temp Pulse Resp BP Pulse Ox 99.2 F 83 20 168/76 H 96 04/12/18 07:00 04/12/18 07:00 04/12/18 07:00 04/12/18 07:00 04/12/18 07:00 Intake and Output: 04/12/18 04/12/18 06:59 18:59 Intake Total 260 Output Total 800 Balance -540 - Medications Medications: Current Medications Albuterol/Ipratropium (Duoneb 3 Mg/0.5 Mg (3 Ml) Ud) 3 ml INH RQ6 [facility] Last Admin: 04/12/18 07:26 Dose: 3 ml Amlodipine Besylate (Norvasc) 10 mg PO DAILY [facility] Last Admin: 04/11/18 13:15 Dose: 10 mg Dextrose (Dextrose 50% Inj) 0 ml IV STAT PRN; Protocol PRN Reason: Hypoglycemia Protocol Dextrose (Glutose 15) 0 gm PO ONCE PRN; Protocol PRN Reason: Hypoglycemia Protocol Finasteride (Proscar) 5 mg PO DAILY [facility] Last Admin: 04/11/18 10:00 Dose: Not Given Furosemide (Lasix) 20 mg IVP DAILY [facility] Last Admin: 04/11/18 13:30 Dose: 20 mg Glucagon (Glucagen Diagnostic Kit) 0 mg IM STAT PRN; Protocol PRN Reason: Hypoglycemia Protocol Hydralazine HCl (Apresoline) 25 mg PO Q8H [facility] Last Admin: 04/12/18 02:02 Dose: 25 mg Dextrose (Dextrose 5% In Water 1000 Ml) 1,000 mls @ 0 mls/hr IV .Q0M PRN; Protocol PRN Reason: Hypoglycemia Protocol Piperacillin Sod/Tazobactam Sod (Zosyn 3.375 Gm Iv Premix) 3.375 gm in 50 mls @ 100 mls/hr IVPB Q6H [facility]; Protocol Last Admin: 04/12/18 06:30 Dose: 100 mls/hr Insulin Aspart (Novolog) 8 unit SC TIDAC [facility] Last Admin: 04/12/18 08:27 Dose: 8 u Insulin Aspart (Novolog) 0 unit SC ACHS [facility]; Protocol Last Admin: 04/12/18 07:03 Dose: 10 units Insulin Glargine (Lantus) 55 unit SC HS [facility] Last Admin: 04/11/18 22:26 Dose: 55 units Lisinopril (Zestril) 40 mg PO DAILY [facility] Last Admin: 04/11/18 13:15 Dose: 40 mg Methylprednisolone (Solu-Medrol) 40 mg IVP Q6H [facility] Last Admin: 04/12/18 06:16 Dose: 40 mg Metoprolol Succinate (Toprol Xl) 100 mg PO DAILY [facility] Last Admin: 04/11/18 09:30 Dose: 100 mg Pantoprazole Sodium (Protonix Inj) 40 mg IVP Q12H [facility] Last Admin: 04/12/18 03:12 Dose: 40 mg Tamsulosin HCl (Flomax) 0.4 mg PO DAILY [facility] Last Admin: 04/11/18 10:00 Dose: Not Given - Labs Labs: 04/12/18 07:02 04/12/18 07:02 PT 12.2 SECONDS (9.7-12.2) 04/08/18 03:06 INR 1.1 04/08/18 03:06 APTT 31 SECONDS (21-34) 04/08/18 03:06 - Respiratory Exam Respiratory Exam: Clear to Ausculation Bilateral - Cardiovascular Exam Cardiovascular Exam: RRR - GI/Abdominal Exam GI & Abdominal Exam: Soft, Normal Bowel Sounds. absent: Tenderness - Neurological Exam Neurological Exam: Alert, Awake, Oriented x3 Assessment and Plan (1) Hyponatremia Status: Acute (2) BPH (benign prostatic hyperplasia) Status: Acute (3) Chest pain Status: Acute (4) Congestive heart failure Status: Acute (5) ROJAS (dyspnea on exertion) Status: Acute (6) Diabetes Status: Acute (7) Iron deficiency anemia Assessment & Plan: Gi w/u when clear by cardiol Status: Acute (8) Shortness of breath Status: Acute
--- NOTE | 2018-04-12 09:35 | CP.PCM.PN ---
Subjective - Date & Time of Evaluation Date of Evaluation: 04/12/18 Time of Evaluation: 09:20 - Subjective Subjective: f/u anemia. Hb stable Denies CP, sob,, JAQUEZ, cough, hematuria, hemoptysis, RB, melena, const , diarrhea Seen by ENT for voice change Objective - Vital Signs/Intake and Output Vital Signs (last 24 hours): Temp Pulse Resp BP Pulse Ox 99.2 F 83 20 168/76 H 96 04/12/18 07:00 04/12/18 07:00 04/12/18 07:00 04/12/18 07:00 04/12/18 07:00 Intake and Output: 04/12/18 04/12/18 06:59 18:59 Intake Total 260 Output Total 800 Balance -540 - Medications Medications: Current Medications Albuterol/Ipratropium (Duoneb 3 Mg/0.5 Mg (3 Ml) Ud) 3 ml INH RQ6 [facility]NA Last Admin: 04/12/18 07:26 Dose: 3 ml Amlodipine Besylate (Norvasc) 10 mg PO DAILY [facility] Last Admin: 04/11/18 13:15 Dose: 10 mg Dextrose (Dextrose 50% Inj) 0 ml IV STAT PRN; Protocol PRN Reason: Hypoglycemia Protocol Dextrose (Glutose 15) 0 gm PO ONCE PRN; Protocol PRN Reason: Hypoglycemia Protocol Finasteride (Proscar) 5 mg PO DAILY [facility] Last Admin: 04/11/18 10:00 Dose: Not Given Furosemide (Lasix) 20 mg IVP DAILY [facility] Last Admin: 04/11/18 13:30 Dose: 20 mg Glucagon (Glucagen Diagnostic Kit) 0 mg IM STAT PRN; Protocol PRN Reason: Hypoglycemia Protocol Hydralazine HCl (Apresoline) 25 mg PO Q8H [facility] Last Admin: 04/12/18 02:02 Dose: 25 mg Dextrose (Dextrose 5% In Water 1000 Ml) 1,000 mls @ 0 mls/hr IV .Q0M PRN; Protocol PRN Reason: Hypoglycemia Protocol Piperacillin Sod/Tazobactam Sod (Zosyn 3.375 Gm Iv Premix) 3.375 gm in 50 mls @ 100 mls/hr IVPB Q6H [facility]; Protocol Last Admin: 04/12/18 06:30 Dose: 100 mls/hr Insulin Aspart (Novolog) 8 unit SC TIDAC [facility] Last Admin: 04/12/18 08:27 Dose: 8 u Insulin Aspart (Novolog) 0 unit SC ACHS [facility]; Protocol Last Admin: 04/12/18 07:03 Dose: 10 units Insulin Glargine (Lantus) 55 unit SC HS [facility] Last Admin: 04/11/18 22:26 Dose: 55 units Lisinopril (Zestril) 40 mg PO DAILY [facility] Last Admin: 04/11/18 13:15 Dose: 40 mg Methylprednisolone (Solu-Medrol) 40 mg IVP Q6H [facility] Last Admin: 04/12/18 06:16 Dose: 40 mg Metoprolol Succinate (Toprol Xl) 100 mg PO DAILY [facility] Last Admin: 04/11/18 09:30 Dose: 100 mg Pantoprazole Sodium (Protonix Inj) 40 mg IVP Q12H [facility] Last Admin: 04/12/18 03:12 Dose: 40 mg Tamsulosin HCl (Flomax) 0.4 mg PO DAILY [facility] Last Admin: 04/11/18 10:00 Dose: Not Given - Labs Labs: 04/12/18 07:02 04/12/18 07:02 PT 12.2 SECONDS (9.7-12.2) 04/08/18 03:06 INR 1.1 04/08/18 03:06 APTT 31 SECONDS (21-34) 04/08/18 03:06 - Constitutional Appears: Well - Respiratory Exam Respiratory Exam: Clear to Ausculation Bilateral - Cardiovascular Exam Cardiovascular Exam: RRR - GI/Abdominal Exam GI & Abdominal Exam: Soft, Normal Bowel Sounds. absent: Guarding, Tenderness, Mass - Neurological Exam Neurological Exam: Alert, Oriented x3 Assessment and Plan (1) Hyponatremia Assessment & Plan: Better Status: Acute (2) BPH (benign prostatic hyperplasia) Status: Acute (3) Chest pain Status: Acute (4) Congestive heart failure Status: Acute (5) ROJAS (dyspnea on exertion) Status: Acute (6) Diabetes Status: Acute (7) Iron deficiency anemia Assessment & Plan: Hb is stable. Was taking NSAIDs. Consider gastritis, PUD. Colonsocopy was done 2 yrs ago. Rec- EGD when card clear Status: Acute (8) Shortness of breath Status: Acute
[2018-04-12 10:26] LABS: ANISOCYTOSIS SLIGHT; BANDS 4 % (0-2); HYPOCHROMIC SLIGHT; LYMPHOCYTE 5 % (20-40); MICROCYTOSIS SLIGHT; MONOCYTE 3 % (0-10); NEUTROPHIL 88 % (50-75); PLATELET ESTIMATE NORMAL (NORMAL); POIKILOCYTOSIS SLIGHT; TOTAL CELLS COUNTED 100
[2018-04-12 10:27] LABS: OVALOCYTES SLIGHT; POLYCHROMIC SLIGHT; TARGET CELLS SLIGHT
[2018-04-12] MEDS: Metoprolol Succinate 100 mg XL Tab PO SCH (10:46)
[2018-04-12] MEDS ORDERED: Iodixanol 320 mg/ml 150 ml Bottle IV ONE (12:23)
--- NOTE | 2018-04-12 12:38 | CP.PCM.PN ---
Subjective - Date & Time of Evaluation Date of Evaluation: 04/12/18 Time of Evaluation: 12:00 - Subjective Subjective: Patient seen and examined Lying comfortably in no distress No wheezing or shortness of breath noted Status post cardiac cath with moderate double vessel coronary artery disease Objective - Vital Signs/Intake and Output Vital Signs (last 24 hours): Temp Pulse Resp BP Pulse Ox 99.2 F 81 20 173/68 H 96 04/12/18 07:00 04/12/18 12:08 04/12/18 07:00 04/12/18 12:08 04/12/18 07:00 Intake and Output: 04/12/18 04/12/18 06:59 18:59 Intake Total 260 Output Total 800 Balance -540 - Medications Medications: Current Medications Albuterol/Ipratropium (Duoneb 3 Mg/0.5 Mg (3 Ml) Ud) 3 ml INH RQ6 [facility] Last Admin: 04/12/18 07:26 Dose: 3 ml Amlodipine Besylate (Norvasc) 10 mg PO DAILY [facility] Last Admin: 04/12/18 10:46 Dose: 10 mg Dextrose (Dextrose 50% Inj) 0 ml IV STAT PRN; Protocol PRN Reason: Hypoglycemia Protocol Dextrose (Glutose 15) 0 gm PO ONCE PRN; Protocol PRN Reason: Hypoglycemia Protocol Finasteride (Proscar) 5 mg PO DAILY [facility] Last Admin: 04/12/18 09:49 Dose: 5 mg Furosemide (Lasix) 20 mg IVP DAILY [facility] Last Admin: 04/12/18 09:50 Dose: 20 mg Glucagon (Glucagen Diagnostic Kit) 0 mg IM STAT PRN; Protocol PRN Reason: Hypoglycemia Protocol Hydralazine HCl (Apresoline) 50 mg PO Q8H [facility] Last Admin: 04/12/18 12:07 Dose: 50 mg Dextrose (Dextrose 5% In Water 1000 Ml) 1,000 mls @ 0 mls/hr IV .Q0M PRN; Protocol PRN Reason: Hypoglycemia Protocol Piperacillin Sod/Tazobactam Sod (Zosyn 3.375 Gm Iv Premix) 3.375 gm in 50 mls @ 100 mls/hr IVPB Q6H [facility]; Protocol Last Admin: 04/12/18 06:30 Dose: 100 mls/hr Insulin Aspart (Novolog) 8 unit SC TIDAC [facility] Last Admin: 04/12/18 12:06 Dose: 8 u Insulin Aspart (Novolog) 0 unit SC ACHS [facility]; Protocol Last Admin: 04/12/18 12:07 Dose: 10 units Insulin Glargine (Lantus) 55 unit SC [facility] Last Admin: 04/11/18 22:26 Dose: 55 units Lisinopril (Zestril) 40 mg PO DAILY [facility] Last Admin: 04/12/18 09:49 Dose: 40 mg Methylprednisolone (Solu-Medrol) 40 mg IVP Q8H [facility] Metoprolol Succinate (Toprol Xl) 100 mg PO DAILY [facility] Last Admin: 04/12/18 10:46 Dose: 100 mg Pantoprazole Sodium (Protonix Inj) 40 mg IVP Q12H [facility] Last Admin: 04/12/18 03:12 Dose: 40 mg Tamsulosin HCl (Flomax) 0.4 mg PO DAILY [facility] Last Admin: 04/12/18 09:49 Dose: 0.4 mg - Labs Labs: 04/12/18 07:02 04/12/18 07:02 PT 12.2 SECONDS (9.7-12.2) 04/08/18 03:06 INR 1.1 04/08/18 03:06 APTT 31 SECONDS (21-34) 04/08/18 03:06 - Head Exam Head Exam: ATRAUMATIC, NORMOCEPHALIC - ENT Exam ENT Exam: Mucous Membranes Moist - Neck Exam Neck Exam: Normal Inspection - Respiratory Exam Respiratory Exam: Clear to Ausculation Bilateral - Cardiovascular Exam Cardiovascular Exam: REGULAR RHYTHM - GI/Abdominal Exam GI & Abdominal Exam: Soft Assessment and Plan (1) Shortness of breath Assessment & Plan: Breathing much improved with less wheezing and no cough For EGD Taper steroids Continue nebulizer treatment Cardiac cath report noted with medical management Sleep study as outpatient Status: Acute (2) Diastolic CHF Status: Acute
--- NOTE | 2018-04-12 13:30 | CT ---
Date of service: 04/12/2018 PROCEDURE: CT NECK WITHOUT CONTRAST HISTORY: Dysphagia. With COMPARISON: None available. TECHNIQUE: CT of the neck without intravenous contrast. Coronal and sagittal reformats generated. Radiation dose: Total exam DLP = 453.41 mGy-cm. This CT exam was performed using one or more of the following dose reduction techniques: Automated exposure control, adjustment of the mA and/or kV according to patient size, and/or use of iterative reconstruction technique. FINDINGS: Note that the examination is slightly limited due to apparent swallowing-motion artifact which obscures and distorts several axial images at the level of the submandibular/sublingual region to the level of the superior aspect of the thyroid cartilage. NASOPHARYNX: Unremarkable. SUPRAHYOID NECK: Unremarkable oropharynx, oral cavity, parapharyngeal space and retropharyngeal space. INFRAHYOID NECK: There is a very slight medial position of the right true vocal cord compared to the left side however no obvious mass is identified.; Correlation with direct visualization recommended to exclude vocal cord paresis.. There is asymmetry of the pyriform sinuses with the right pyriform sinus slightly more distended or dilated compared to the left side although some several of these axial images are limited by motion artifact mentioned above clinical correlation recommended. MASS: The there is the elliptical shaped mass like soft tissue density which appears to be located at the base of the tongue. Questionable mild atrophy-fatty replacement anterior tongue.. Mildly enlarged adenoids may contribute to this appearance however the possibility of a base of tongue mass cannot be excluded. Consider follow-up pre and post-contrast MRI of the neck for further evaluation. GLANDS: Parotid and submandibular glands appear grossly unremarkable. Normal size thyroid gland, without masses, obvious nodules or calcifications. LYMPH NODES: No significant cervical lymphadenopathy. CERVICAL SPINE: Mild moderate multilevel degenerative spondylosis of the cervical spine. OTHER FINDINGS: The cervical vasculature is unremarkable. IMPRESSION: Limited study due to swallowing motion artifact which obscures and distorts soft tissue detail of several axial images from the submandibular/sublingual region to the level of the superior aspect of the thyroid cartilage. There is mild medial position of the right true vocal cord and asymmetry of the pyriform sinuses with slight dilatation of the ipsilateral pyriform sinus compared to the left side.. There are no obvious masses seen the level of the true vocal cord; rule out vocal cord paresis/paralysis. Mass like appearance of the base of the tongue with questionable atrophy/fatty replacement of the anterior type. Prominent lingual tonsils may contribute to the appearance. Consider follow-up of pre and post-contrast MRI of the neck to exclude a base of tongue mass. No significant cervical lymphadenopathy
[2018-04-12] MEDS: (Lantus) Insulin Glargine, Recombinant SC SCH (22:07)
[2018-04-13] MEDS: Piperacill/Tazo 3.375gm in Dex 3.375 GM/50 ML BAG IVPB SCH ×4 (01:48→18:41)
[2018-04-13] MEDS: Albuterol-Ipratrop 3 mg / 0.5 (3 ml) UD INH SCH ×4 (02:00→20:05)
[2018-04-13] MEDS ORDERED: (Novolog) Insulin Aspart, Recombinant 100 u/ml 10 ml vial SC ONE (02:29)
[2018-04-13] MEDS: MethylPREDNISolone 40 mg Vial IVP SCH ×2 (06:28→22:10)
[2018-04-13 08:33] LABS: BASO % 0.2 % (0.0-2.0); HEMOGLOBIN 8.2 g/dL (12.0-18.0); LYMPH # 1.2 K/uL (1.0-4.3); LYMPH % 9.3 % (20.0-40.0); MEAN CORPUSCULAR HEMOGLOBIN 20.5 pg (27.0-31.0); MEAN CORPUSCULAR HGB CONC 30.2 g/dL (33.0-37.0); MEAN PLATELET VOLUME 7.9 fL (7.2-11.7); MONO # 0.4 K/uL (0.0-0.8); MONO % 3.5 % (0.0-10.0); NEUT # 11.1 K/uL (1.8-7.0); NRBC % 0.2 % (0.0-2.0); PLATELET COUNT 387 K/uL (130-400); RBC 3.98 Mil/uL (4.40-5.90); RED CELL DISTRIBUTION WIDTH 17.9 % (11.5-14.5); WHITE BLOOD COUNT 12.7 K/uL (4.8-10.8)
[2018-04-13] MEDS: (Novolog) Insulin Aspart, Recombinant 100 u/ml 10 ml vial SC SCH ×7 (08:44→22:22)
[2018-04-13 08:51] LABS: ALB/GLOB RATIO 1.3 (1.0-2.1); ALBUMIN 3.4 g/dL (3.5-5.0); ALT/SGPT 47 U/L (21-72); AST/SGOT 34 U/L (17-59); BLOOD UREA NITROGEN 31 mg/dL (9-20); CALCIUM 8.1 mg/dl (8.6-10.4); GFR NON-AFRICAN AMERICAN > 60
[2018-04-13 09:20] LABS: BANDS 2 % (0-2); LYMPHOCYTE 9 % (20-40); MONOCYTE 6 % (0-10); NEUTROPHIL 83 % (50-75); TOTAL CELLS COUNTED 100
[2018-04-13 09:21] LABS: ANISOCYTOSIS SLIGHT; MICROCYTOSIS MODERATE; PLATELET ESTIMATE NORMAL (NORMAL); POIKILOCYTOSIS SLIGHT
[2018-04-13 09:22] LABS: HYPOCHROMIC MODERATE; OVALOCYTES SLIGHT; POLYCHROMIC SLIGHT; TARGET CELLS SLIGHT; TEARDROP CELLS SLIGHT
--- NOTE | 2018-04-13 09:27 | CP.PCM.PN ---
<Jefe Richter - Last Filed: 04/13/18 16:48> Subjective - Date & Time of Evaluation Date of Evaluation: 04/13/18 Time of Evaluation: 09:25 - Subjective Subjective: PGY2 Medicine Note for Dr. Foreman Patient seen and examine this morning at bedside. Patient seen sitting up at bedside eating breakfast. He is feeling completely normal and denies any complaints at this time. He is speaking in complete sentences without oxygen. Davonte barrios's blood sugar and blood pressure continue to be uncontrolled. Denies fevers, chills, nausea, vomiting, diarrhea, constipation, chest pain, abdominal pain, shortness of breath or urinary complaints. Objective - Vital Signs/Intake and Output Vital Signs (last 24 hours): Temp Pulse Resp BP Pulse Ox 98.2 F 79 20 162/68 H 99 04/13/18 07:00 04/13/18 07:00 04/13/18 07:00 04/13/18 07:00 04/13/18 07:00 Intake and Output: 04/13/18 04/13/18 06:59 18:59 Intake Total 370 Output Total 350 Balance 20 - Medications Medications: Current Medications Albuterol/Ipratropium (Duoneb 3 Mg/0.5 Mg (3 Ml) Ud) 3 ml INH RQ6 [facility] Last Admin: 04/13/18 02:00 Dose: Not Given Amlodipine Besylate (Norvasc) 10 mg PO DAILY [facility] Last Admin: 04/12/18 10:46 Dose: 10 mg Dextrose (Dextrose 50% Inj) 0 ml IV STAT PRN; Protocol PRN Reason: Hypoglycemia Protocol Dextrose (Glutose 15) 0 gm PO ONCE PRN; Protocol PRN Reason: Hypoglycemia Protocol Finasteride (Proscar) 5 mg PO DAILY [facility] Last Admin: 04/12/18 09:49 Dose: 5 mg Furosemide (Lasix) 20 mg IVP DAILY [facility] Last Admin: 04/12/18 09:50 Dose: 20 mg Glucagon (Glucagen Diagnostic Kit) 0 mg IM STAT PRN; Protocol PRN Reason: Hypoglycemia Protocol Hydralazine HCl (Apresoline) 50 mg PO Q8H [facility] Last Admin: 04/13/18 03:16 Dose: 50 mg Dextrose (Dextrose 5% In Water 1000 Ml) 1,000 mls @ 0 mls/hr IV .Q0M PRN; Protocol PRN Reason: Hypoglycemia Protocol Piperacillin Sod/Tazobactam Sod (Zosyn 3.375 Gm Iv Premix) 3.375 gm in 50 mls @ 100 mls/hr IVPB Q6H [facility]; Protocol Last Admin: 04/13/18 06:30 Dose: 100 mls/hr Insulin Aspart (Novolog) 8 unit SC TIDAC [facility] Last Admin: 04/13/18 08:44 Dose: 8 u Insulin Aspart (Novolog) 0 unit SC ACHS [facility]; Protocol Last Admin: 04/13/18 08:45 Dose: 6 units Insulin Glargine (Lantus) 55 unit SC HS [facility] Last Admin: 04/12/18 22:07 Dose: 55 units Lactobacillus Acidophilus (Bacid Acidophilus) 1 cap PO BID [facility] Lisinopril (Zestril) 40 mg PO DAILY [facility] Last Admin: 04/12/18 09:49 Dose: 40 mg Methylprednisolone (Solu-Medrol) 40 mg IVP Q8H [facility] Last Admin: 04/13/18 06:28 Dose: 40 mg Metoprolol Succinate (Toprol Xl) 100 mg PO DAILY [facility] Last Admin: 04/12/18 10:46 Dose: 100 mg Pantoprazole Sodium (Protonix Inj) 40 mg IVP Q12H [facility] Last Admin: 04/13/18 03:15 Dose: 40 mg Tamsulosin HCl (Flomax) 0.4 mg PO DAILY [facility] Last Admin: 04/12/18 09:49 Dose: 0.4 mg - Labs Labs: 04/13/18 08:10 04/13/18 08:10 PT 12.2 SECONDS (9.7-12.2) 04/08/18 03:06 INR 1.1 04/08/18 03:06 APTT 31 SECONDS (21-34) 04/08/18 03:06 - Constitutional Appears: Non-toxic, No Acute Distress - Head Exam Head Exam: NORMAL INSPECTION - Eye Exam Eye Exam: Normal appearance - Respiratory Exam Respiratory Exam: Decreased Breath Sounds (poor air movement). absent: Ac cessory Muscle Use, Rales, Rhonchi, Wheezes, Respiratory Distress - Cardiovascular Exam Cardiovascular Exam: REGULAR RHYTHM, +S1, +S2 - GI/Abdominal Exam GI & Abdominal Exam: Soft. absent: Distended, Firm, Guarding, Rigid, Tenderness Additional comments: morbidly obese - Extremities Exam Extremities Exam: absent: Calf Tenderness, Pedal Edema - Neurological Exam Neurological Exam: Alert, Awake, Oriented x3 - Psychiatric Exam Psychiatric exam: Normal Affect, Normal Mood - Skin Skin Exam: Dry, Warm Additional comments: Xerosis over lower extremities b/l Assessment and Plan - Assessment and Plan (Free Text) Plan: Patient is an 82 year old male w/ PMHx of IDDM, HTN, BPH, and b/l knee arthritis admitted for sob and chest pain. negative troponins. cardiac cath for today pending results. CXR showed bilateral pleural effusions, unknown etiology, possible pulm HTN 2/2 PATRICK. Shortness of Breath * Multifactorial including iron deficiency anemia, congestive heart failure, atelecasis * Cardiology consulted, Dr. 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 Pillai * patient will need sleep study as out patient * GI consulted, Dr. Jason * Patient scheduled for EGD on Saturday (currently on hold until neck mass was evaluated) * NPO past midnight * Patient is on Solumedrol 40mg IVP Q8H (active since 04/08/18, decreased from q6h on 04/12/18) * likely accounting for leukocytosis * Medications * Zosyn 3.375mg IV q6h prn (started on 04/08/18) * Duonebs Iron Deficiency Anemia * GI (Dr. 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 Malagon * Ferritin: low, iron: low, High TIBC, high reticulocyte count, elevated RDW * Prior hgb: 8.7 in Feb 2018 * pending occult blood * order 04/08; 04/09; and today * Patient taking Motrin as outpatient for low back pain; and plavix for vascular stent in legs * Low ferritin * Patient reports he has had a colonoscopy 1-2 years ago * per cardiology, * From the family member its found out that Patient's primary butter melter is Dr. Sweet. We will transfer patient's cardiology care to Dr. Bray x 2 are negative, ProBNP normal. EF Normal. Likely low to moderate cardiac risk for Colonoscopy under conscious sedation. If patient needs Colonoscopy, Cardiac point of view there is no contraindication. At this point do not see the additional therapeutic value for RHC. Will cancel RHC for tomorrow. All further cardiac management as per Dr. Sweet Hoarseness (improving) * ENT consulted, Chris * Patient was unable to tolerate procedure at bedside on 04/10/18 * Discussed CT findings with Dr. Perez, he requested soft tissue of neck CT with contrast to better evaluate mass at the chan of tongue. He states that patient should not go for EGD until repeat CT is performed. * will f/u soft tissue of neck CT w/contrast * CT scan of neck w/o contrast 04/11/18 * Limited study due to swallowing motion artifact which obscures and distorts soft tissue detail of several axial images from the submandibular/sublingual region to the level of the superior aspect of the thyroid cartilage. * There is mild medial position of the right true vocal cord and asymmetry of the pyriform sinuses with slight dilatation of the ipsilateral pyriform sinus compared to the left side.. There are no obvious masses seen the level of the true vocal cord; rule out vocal cord paresis/paralysis. * Mass like appearance of the base of the tongue with questionable atrophy/fatty replacement of the anterior type. Prominent lingual tonsils may contribute to the appearance. Consider follow-up of pre and post- contrast MRI of the neck to exclude a base of tongue mass. * No significant cervical lymphadenopathy Elevated Lipase Abd/Pelvis CT: * Mild irregularity of the liver, probable chronic parenchymal liver disease. Benign simple left hepatic lobe cyst. Uncomplicated colonic diverticulosis. Minimal left pleural effusion. Mild right pleural effusion. Passive left airspace disease of both lower lobes. Prostatomegaly. Mild diffuse thickening of the bladder. However secondary to chronic bladder outlet obstruction. Unremarkable CT evaluation of the pancreas. Patient clinically does not look like he has acute pancreatitis. Belly is benign on exam. Low back pain * Lumbar xray: Mild degenerative change. No acute findings. Congestive Heart Failure, Diastolic Coronary Artery Disease * Cardiology (Dr. Andrade) senior compensation consultant->help appreciated * Transferred care to Dr. Sweet who has seen the patient in the past. * Chest xray: CHF/cardiomegaly * ECHO (04/08/18): reviewed with Dr. Andarde which showed normal EF; Diastolic CHF * CT Chest (04/08/18): small right sided effusion with monitor right basilar atelectasis. trace left effusion and minimal left basilar atelectasis. Mild pulmonary venous congestive changes are present. Small somewhat triangular shaped nodular opacity in the right middle lobe that measures approximately 4.2mm. Subjacent slightly more inferiorly located 5mm nodular opacity. cardiomegaly with small pericardial effusion. small amount of perihepatic ascites again noted. * Cardiac cath (04/11/18): aggressive medical therapy/cardiac risk/medical therapy; moderate double vessel CAD, KALEIGH II flow throughout * Daily weight * Intake and outputs * Medications * Lasix 20mg IVP daily * Lisinopril 40mg PO daily * Toprol XL 100mg PO daily * Aspirin off given anemia Resistant Hypertension Uncontrolled continue to monitor Medications: * Lasix 20mg IVP daily * Lisinopril 40mg PO daily * Amlodipine 10mg PO daily * Metoprolol Succ 100mg PO daily * Hydralazine 50mg PO q8h * Lopressor 5mg IVP q6h prn for SBP>160 - HOLD if HR <60bpm Diabetes * sugars uncontrolled since starting steroids * hgba1c: 8.7 * Medications: * Novolog 8 units TIDAC * Lantus 55 unit subq HS * ISS - medium * Hypoglycemic protocol Enlarged Prostate * Flomax 0.4mg PO Daily * Proscar 5mg PO daily Hyponatremia(resolved) * Serum osmolarity: normal * Urine osmolarity: 251 * Urine sodium: 75 History of peripheral vascular disease * Patient has been taking plavix as outpatient for vascular stents Prophylactic measure * Protonix 40mg [id number] * Hold anticoagulation given anemia * scds contraindicated given history of PAD * PT/OT eval Case discussed with Dr. Kellen Mayberry Rober PGY2 <Debora Foreman V - Last Filed: 04/14/18 13:51> Objective - Vital Signs/Intake and Output Vital Signs (last 24 hours): Temp Pulse Resp BP Pulse Ox 98.9 F 84 20 126/57 L 93 L 04/13/18 16:00 04/13/18 16:00 04/13/18 16:00 04/13/18 16:00 04/13/18 16:00 Intake and Output: 04/13/18 04/13/18 06:59 18:59 Intake Total 370 Output Total 350 Balance 20 - Medications Medications: Current Medications Albuterol/Ipratropium (Duoneb 3 Mg/0.5 Mg (3 Ml) Ud) 3 ml INH RQ6 [facility] Last Admin: 04/13/18 13:47 Dose: Not Given Amlodipine Besylate (Norvasc) 10 mg PO DAILY [facility] Last Admin: 04/13/18 10:10 Dose: 10 mg Dextrose (Dextrose 50% Inj) 0 ml IV STAT PRN; Protocol PRN Reason: Hypoglycemia Protocol Dextrose (Glutose 15) 0 gm PO ONCE PRN; Protocol PRN Reason: Hypoglycemia Protocol Finasteride (Proscar) 5 mg PO DAILY [facility] Last Admin: 04/13/18 10:10 Dose: 5 mg Furosemide (Lasix) 20 mg IVP DAILY [facility] Last Admin: 04/13/18 10:11 Dose: 20 mg Glucagon (Glucagen Diagnostic Kit) 0 mg IM STAT PRN; Protocol PRN Reason: Hypoglycemia Protocol Hydralazine HCl (Apresoline) 50 mg PO Q8H [facility] Last Admin: 04/13/18 11:32 Dose: 50 mg Dextrose (Dextrose 5% In Water 1000 Ml) 1,000 mls @ 0 mls/hr IV .Q0M PRN; Protocol PRN Reason: Hypoglycemia Protocol Piperacillin Sod/Tazobactam Sod (Zosyn 3.375 Gm Iv Premix) 3.375 gm in 50 mls @ 100 mls/hr IVPB Q6H [facility]; Protocol Last Admin: 04/13/18 13:17 Dose: 100 mls/hr Insulin Aspart (Novolog) 0 unit SC ACHS [facility]; Protocol Last Admin: 04/13/18 13:00 Dose: 10 units Insulin Aspart (Novolog) 14 unit SC TIDAC [facility] Last Admin: 04/13/18 13:00 Dose: 14 u Insulin Glargine (Lantus) 65 unit SC HS [facility] Lactobacillus Acidophilus (Bacid Acidophilus) 1 cap PO BID [facility] Last Admin: 04/13/18 11:00 Dose: 1 cap Lisinopril (Zestril) 40 mg PO DAILY [facility] Last Admin: 04/13/18 10:10 Dose: 40 mg Methylprednisolone (Solu-Medrol) 40 mg IVP Q12H [facility] Metoprolol Succinate (Toprol Xl) 100 mg PO DAILY [facility] Last Admin: 04/13/18 10:10 Dose: 100 mg Metoprolol Tartrate (Lopressor) 5 mg IVP Q6H PRN PRN Reason: SBP>160 Pantoprazole Sodium (Protonix Inj) 40 mg IVP Q12H [facility] Last Admin: 04/13/18 03:15 Dose: 40 mg Tamsulosin HCl (Flomax) 0.4 mg PO DAILY [facility] Last Admin: 04/13/18 10:10 Dose: 0.4 mg - Labs Labs: 04/13/18 08:10 04/13/18 08:10 PT 12.2 SECONDS (9.7-12.2) 04/08/18 03:06 INR 1.1 04/08/18 03:06 APTT 31 SECONDS (21-34) 04/08/18 03:06 Assessment and Plan (1) Morbid obesity Status: Acute (2) Iron deficiency anemia Status: Acute (3) Hypoglycemia due to type 1 diabetes mellitus Status: Acute (4) Diastolic CHF Status: Acute (5) Hypertensive urgency Status: Acute (6) Shortness of breath Status: Acute (7) Prophylactic measure Status: Acute Attending/Attestation - Attestation I have personally seen and examined this patient.: Yes I have fully participated in the care of the patient.: Yes I have reviewed all pertinent clinical information, including history, physical exam and plan: Yes Notes (Text): Patient seen, examined case discussed with vice president medical affairs. Patient seen today with his son-in-law. Patient noting today that he feels ""asthma in his mouth. Denies other complaints. The soft tissue CT noted for possible mass at the base of the tongue. We have reached out to ENT who was recommended against the endoscopy given possible bleeding risk if there is a mass there he has wanted a CT with IV contrast to get better clarification of th is finding. I have discussed with Dr. Gallegos following his initial progress note. Will cancel endoscopy for tomorrow. We have tapered IV steroid and adjust insulin accordingly. Patient is also being seen by dietitian given that he is morbidly obese with uncontrolled diabetes heart disease and blood pressure. I did review patient's hospital course with son-in-law who is very appreciative. I did indicate to him that patient lives in a higher blood pressure than recorded he will need at least 4 antihypertensives I did indicate to him with the results of the Lab in terms of the patient does not need any further cardiac intervention for his coronary arteries at this time being that he should not take his medications and trying to reduce his weight. He also did indicate to him that he will likely need outpatient sleep study given that he does report that he has insomnia and does not sleep and he did indicate to him he will likely need a BiPAP mask at night.
--- NOTE | 2018-04-13 10:04 | CP.PCM.PN ---
Subjective - Date & Time of Evaluation Date of Evaluation: 04/13/18 Time of Evaluation: 09:00 - Subjective Subjective: f/u anemia, drop Hb Breathing- improving- less SOB No RB,melena, fever, chills, SZ, LOC, JAQUEZ, cough, dysphagia, throat pain CT Neck shows mass at base of tongue Objective - Vital Signs/Intake and Output Vital Signs (last 24 hours): Temp Pulse Resp BP Pulse Ox 98.2 F 79 20 162/68 H 99 04/13/18 07:00 04/13/18 07:00 04/13/18 07:00 04/13/18 07:00 04/13/18 07:00 Intake and Output: 04/13/18 04/13/18 06:59 18:59 Intake Total 370 Output Total 350 Balance 20 - Medications Medications: Current Medications Albuterol/Ipratropium (Duoneb 3 Mg/0.5 Mg (3 Ml) Ud) 3 ml INH RQ6 [facility] Last Admin: 04/13/18 02:00 Dose: Not Given Amlodipine Besylate (Norvasc) 10 mg PO DAILY [facility] Last Admin: 04/12/18 10:46 Dose: 10 mg Dextrose (Dextrose 50% Inj) 0 ml IV STAT PRN; Protocol PRN Reason: Hypoglycemia Protocol Dextrose (Glutose 15) 0 gm PO ONCE PRN; Protocol PRN Reason: Hypoglycemia Protocol Finasteride (Proscar) 5 mg PO DAILY [facility] Last Admin: 04/12/18 09:49 Dose: 5 mg Furosemide (Lasix) 20 mg IVP DAILY [facility] Last Admin: 04/12/18 09:50 Dose: 20 mg Glucagon (Glucagen Diagnostic Kit) 0 mg IM STAT PRN; Protocol PRN Reason: Hypoglycemia Protocol Hydralazine HCl (Apresoline) 50 mg PO Q8H [facility] Last Admin: 04/13/18 03:16 Dose: 50 mg Dextrose (Dextrose 5% In Water 1000 Ml) 1,000 mls @ 0 mls/hr IV .Q0M PRN; Protocol PRN Reason: Hypoglycemia Protocol Piperacillin Sod/Tazobactam Sod (Zosyn 3.375 Gm Iv Premix) 3.375 gm in 50 mls @ 100 mls/hr IVPB Q6H [facility]; Protocol Last Admin: 04/13/18 06:30 Dose: 100 mls/hr Insulin Aspart (Novolog) 8 unit SC TIDAC [facility] Last Admin: 04/13/18 08:44 Dose: 8 u Insulin Aspart (Novolog) 0 unit SC ACHS [facility]; Protocol Last Admin: 04/13/18 08:45 Dose: 6 units Insulin Glargine (Lantus) 55 unit SC HS [facility] Last Admin: 04/12/18 22:07 Dose: 55 units Lactobacillus Acidophilus (Bacid Acidophilus) 1 cap PO BID [facility] Lisinopril (Zestril) 40 mg PO DAILY [facility] Last Admin: 04/12/18 09:49 Dose: 40 mg Methylprednisolone (Solu-Medrol) 40 mg IVP Q8H [facility] Last Admin: 04/13/18 06:28 Dose: 40 mg Metoprolol Succinate (Toprol Xl) 100 mg PO DAILY [facility] Last Admin: 04/12/18 10:46 Dose: 100 mg Pantoprazole Sodium (Protonix Inj) 40 mg IVP Q12H [facility] Last Admin: 04/13/18 03:15 Dose: 40 mg Tamsulosin HCl (Flomax) 0.4 mg PO DAILY [facility] Last Admin: 04/12/18 09:49 Dose: 0.4 mg - Labs Labs: 04/13/18 08:10 04/13/18 08:10 PT 12.2 SECONDS (9.7-12.2) 04/08/18 03:06 INR 1.1 04/08/18 03:06 APTT 31 SECONDS (21-34) 04/08/18 03:06 - Constitutional Appears: Non-toxic - Respiratory Exam Respiratory Exam: Clear to Ausculation Bilateral - Cardiovascular Exam Cardiovascular Exam: RRR - GI/Abdominal Exam GI & Abdominal Exam: Soft, Normal Bowel Sounds. absent: Tenderness - Neurological Exam Neurological Exam: Alert, Awake, Oriented x3 Assessment and Plan (1) Hyponatremia Assessment & Plan: 135 Status: Acute (2) BPH (benign prostatic hyperplasia) Status: Acute (3) Chest pain Status: Acute (4) Congestive heart failure Status: Acute (5) ROJAS (dyspnea on exertion) Status: Acute (6) Diabetes Status: Acute (7) Iron deficiency anemia Assessment & Plan: Pt is cleared for EGD. - scheduled for saturday. Issues- CArdiac/pulmonary/ ENT- mass at tongue Status: Acute (8) Shortness of breath Assessment & Plan: improving Status: Acute (9) ENT disease Assessment & Plan: mass at base of tongue Status: Acute
[2018-04-13] MEDS: Metoprolol Succinate 100 mg XL Tab PO SCH (10:10)
[2018-04-13] MEDS: Lactobacillus Acidophilus 500 MU Cap PO SCH ×2 (11:00→18:41)
--- NOTE | 2018-04-13 15:29 | CP.PCM.PN ---
Subjective - Date & Time of Evaluation Date of Evaluation: 04/13/18 Time of Evaluation: 14:30 - Subjective Subjective: Patient seen and examined No shortness of breath or cough Afebrile CAT scan of the neck showed possible mass/vocal cord paralysis Objective - Vital Signs/Intake and Output Vital Signs (last 24 hours): Temp Pulse Resp BP Pulse Ox 98.2 F 79 20 129/51 L 99 04/13/18 07:00 04/13/18 07:00 04/13/18 07:00 04/13/18 10:11 04/13/18 07:00 Intake and Output: 04/13/18 04/13/18 06:59 18:59 Intake Total 370 Output Total 350 Balance 20 - Medications Medications: Current Medications Albuterol/Ipratropium (Duoneb 3 Mg/0.5 Mg (3 Ml) Ud) 3 ml INH RQ6 [facility] Last Admin: 04/13/18 13:47 Dose: Not Given Amlodipine Besylate (Norvasc) 10 mg PO DAILY [facility] Last Admin: 04/13/18 10:10 Dose: 10 mg Dextrose (Dextrose 50% Inj) 0 ml IV STAT PRN; Protocol PRN Reason: Hypoglycemia Protocol Dextrose (Glutose 15) 0 gm PO ONCE PRN; Protocol PRN Reason: Hypoglycemia Protocol Finasteride (Proscar) 5 mg PO DAILY [facility] Last Admin: 04/13/18 10:10 Dose: 5 mg Furosemide (Lasix) 20 mg IVP DAILY [facility] Last Admin: 04/13/18 10:11 Dose: 20 mg Glucagon (Glucagen Diagnostic Kit) 0 mg IM STAT PRN; Protocol PRN Reason: Hypoglycemia Protocol Hydralazine HCl (Apresoline) 50 mg PO Q8H [facility] Last Admin: 04/13/18 11:32 Dose: 50 mg Dextrose (Dextrose 5% In Water 1000 Ml) 1,000 mls @ 0 mls/hr IV .Q0M PRN; Protocol PRN Reason: Hypoglycemia Protocol Piperacillin Sod/Tazobactam Sod (Zosyn 3.375 Gm Iv Premix) 3.375 gm in 50 mls @ 100 mls/hr IVPB Q6H [facility]; Protocol Last Admin: 04/13/18 13:17 Dose: 100 mls/hr Insulin Aspart (Novolog) 0 unit SC ACHS [facility]; Protocol Last Admin: 04/13/18 13:00 Dose: 10 units Insulin Aspart (Novolog) 14 unit SC TIDAC [facility] Last Admin: 04/13/18 13:00 Dose: 14 u Insulin Glargine (Lantus) 55 unit SC HS [facility] Last Admin: 04/12/18 22:07 Dose: 55 units Lactobacillus Acidophilus (Bacid Acidophilus) 1 cap PO BID [facility] Last Admin: 04/13/18 11:00 Dose: 1 cap Lisinopril (Zestril) 40 mg PO DAILY [facility] Last Admin: 04/13/18 10:10 Dose: 40 mg Methylprednisolone (Solu-Medrol) 40 mg IVP Q12H [facility] Metoprolol Succinate (Toprol Xl) 100 mg PO DAILY [facility] Last Admin: 04/13/18 10:10 Dose: 100 mg Pantoprazole Sodium (Protonix Inj) 40 mg IVP Q12H [facility] Last Admin: 04/13/18 03:15 Dose: 40 mg Tamsulosin HCl (Flomax) 0.4 mg PO DAILY [facility] Last Admin: 04/13/18 10:10 Dose: 0.4 mg - Labs Labs: 04/13/18 08:10 04/13/18 08:10 PT 12.2 SECONDS (9.7-12.2) 04/08/18 03:06 INR 1.1 04/08/18 03:06 APTT 31 SECONDS (21-34) 04/08/18 03:06 - Head Exam Head Exam: ATRAUMATIC, NORMOCEPHALIC - ENT Exam ENT Exam: Mucous Membranes Moist - Neck Exam Neck Exam: Normal Inspection - Cardiovascular Exam Cardiovascular Exam: REGULAR RHYTHM - GI/Abdominal Exam GI & Abdominal Exam: Soft Assessment and Plan (1) Shortness of breath Assessment & Plan: For repeat CAT scan of the neck with contrast ENT evaluation for possible vocal cord paralysis Continue nebulizer treatment and steroids Clinically much improved Status: Acute
[2018-04-13] MEDS ORDERED: Iodixanol 320 MG/ML 100 ML BOTTLE IV ONE (15:49)
[2018-04-13] MEDS ORDERED: Metoprolol 1 mg/ml Inj IVP PRN (16:43)
[2018-04-13] MEDS: (Lantus) Insulin Glargine, Recombinant SC SCH (22:10)
[2018-04-14] MEDS: Piperacill/Tazo 3.375gm in Dex 3.375 GM/50 ML BAG IVPB SCH ×3 (00:56→20:30)
[2018-04-14] MEDS: Albuterol-Ipratrop 3 mg / 0.5 (3 ml) UD INH SCH ×2 (02:00→20:16)
[2018-04-14 07:44] LABS: BASO % 0.2 % (0.0-2.0); HEMOGLOBIN 7.9 g/dL (12.0-18.0); LYMPH # 1.1 K/uL (1.0-4.3); LYMPH % 9.5 % (20.0-40.0); MEAN CELL VOLUME 67.8 fL (80.0-94.0); MEAN CORPUSCULAR HEMOGLOBIN 20.1 pg (27.0-31.0); MEAN CORPUSCULAR HGB CONC 29.7 g/dL (33.0-37.0); MEAN PLATELET VOLUME 7.7 fL (7.2-11.7); MONO # 0.3 K/uL (0.0-0.8); MONO % 2.4 % (0.0-10.0); NEUT # 10.3 K/uL (1.8-7.0); NEUT % 87.9 % (50.0-75.0); NRBC % 0.2 % (0.0-2.0); PLATELET COUNT 355 K/uL (130-400); RBC 3.91 Mil/uL (4.40-5.90); RED CELL DISTRIBUTION WIDTH 17.7 % (11.5-14.5); WHITE BLOOD COUNT 11.7 K/uL (4.8-10.8)
[2018-04-14 08:10] LABS: ALB/GLOB RATIO 1.3 (1.0-2.1); ALBUMIN 3.1 g/dL (3.5-5.0); ALT/SGPT 57 U/L (21-72); AST/SGOT 39 U/L (17-59); BLOOD UREA NITROGEN 44 mg/dL (9-20); CALCIUM 7.8 mg/dl (8.6-10.4); GFR NON-AFRICAN AMERICAN > 60
[2018-04-14] MEDS: (Novolog) Insulin Aspart, Recombinant 100 u/ml 10 ml vial SC SCH ×7 (08:48→21:53)
[2018-04-14 09:46] LABS: BANDS 3 % (0-2); LYMPHOCYTE 8 % (20-40); MONOCYTE 1 % (0-10); NEUTROPHIL 88 % (50-75); NUCLEATED RED BLOOD CELL 2 % (0-0); TOTAL CELLS COUNTED 100
[2018-04-14 09:47] LABS: ANISOCYTOSIS SLIGHT; HYPOCHROMIC MODERATE; MICROCYTOSIS SLIGHT; PLATELET ESTIMATE NORMAL (NORMAL)
[2018-04-14] MEDS: Metoprolol Succinate 100 mg XL Tab PO SCH (10:29)
[2018-04-14] MEDS: Lactobacillus Acidophilus 500 MU Cap PO SCH ×2 (10:29→19:00)
--- NOTE | 2018-04-14 11:15 | CP.PCM.PN ---
Objective - Vital Signs/Intake and Output Vital Signs (last 24 hours): Temp Pulse Resp BP Pulse Ox 98.4 F 91 H 20 131/62 93 L 04/14/18 07:30 04/14/18 07:30 04/14/18 07:30 04/14/18 10:29 04/14/18 07:30 Intake and Output: 04/14/18 04/14/18 06:59 18:59 Intake Total 370 Balance 370 - Medications Medications: Current Medications Albuterol/Ipratropium (Duoneb 3 Mg/0.5 Mg (3 Ml) Ud) 3 ml INH RQ6 [facility] Last Admin: 04/14/18 02:00 Dose: Not Given Amlodipine Besylate (Norvasc) 10 mg PO DAILY [facility] Last Admin: 04/14/18 10:29 Dose: 10 mg Dextrose (Dextrose 50% Inj) 0 ml IV STAT PRN; Protocol PRN Reason: Hypoglycemia Protocol Dextrose (Glutose 15) 0 gm PO ONCE PRN; Protocol PRN Reason: Hypoglycemia Protocol Finasteride (Proscar) 5 mg PO DAILY [facility] Last Admin: 04/14/18 10:28 Dose: 5 mg Furosemide (Lasix) 20 mg IVP DAILY [facility] Last Admin: 04/14/18 10:29 Dose: 20 mg Glucagon (Glucagen Diagnostic Kit) 0 mg IM STAT PRN; Protocol PRN Reason: Hypoglycemia Protocol Hydralazine HCl (Apresoline) 50 mg PO Q8H [facility] Last Admin: 04/14/18 04:00 Dose: 50 mg Dextrose (Dextrose 5% In Water 1000 Ml) 1,000 mls @ 0 mls/hr IV .Q0M PRN; Protocol PRN Reason: Hypoglycemia Protocol Piperacillin Sod/Tazobactam Sod (Zosyn 3.375 Gm Iv Premix) 3.375 gm in 50 mls @ 100 mls/hr IVPB Q6H [facility]; Protocol Last Admin: 04/14/18 10:29 Dose: 100 mls/hr Insulin Aspart (Novolog) 0 unit SC ACHS [facility]; Protocol Last Admin: 04/14/18 08:48 Dose: 6 units Insulin Aspart (Novolog) 14 unit SC TIDAC [facility] Last Admin: 04/14/18 08:48 Dose: 14 u Insulin Glargine (Lantus) 65 unit SC HS [facility] Last Admin: 04/13/18 22:10 Dose: 65 units Lactobacillus Acidophilus (Bacid Acidophilus) 1 cap PO BID [facility] Last Admin: 04/14/18 10:29 Dose: 1 cap Lisinopril (Zestril) 40 mg PO DAILY [facility] Last Admin: 04/14/18 10:29 Dose: 40 mg Methylprednisolone (Solu-Medrol) 40 mg IVP Q12H [facility] Last Admin: 04/13/18 22:10 Dose: 40 mg Metoprolol Succinate (Toprol Xl) 100 mg PO DAILY [facility] Last Admin: 04/14/18 10:29 Dose: 100 mg Metoprolol Tartrate (Lopressor) 5 mg IVP Q6H PRN PRN Reason: SBP>160 Pantoprazole Sodium (Protonix Inj) 40 mg IVP Q12H [facility] Last Admin: 04/14/18 03:59 Dose: 40 mg Tamsulosin HCl (Flomax) 0.4 mg PO DAILY [facility] Last Admin: 04/14/18 10:29 Dose: 0.4 mg - Labs Labs: 04/14/18 07:29 04/14/18 07:29 PT 12.2 SECONDS (9.7-12.2) 04/08/18 03:06 INR 1.1 04/08/18 03:06 APTT 31 SECONDS (21-34) 04/08/18 03:06
--- NOTE | 2018-04-14 11:56 | CP.PCM.PN ---
Subjective - Date & Time of Evaluation Date of Evaluation: 04/14/18 Time of Evaluation: 11:40 - Subjective Subjective: PGY1 Progress Note for 's service Patient was seen and examined at beside. No acute distress overnight. Patient offers no complaints currently. Denies fever, chills, chest pain, SOB, nausea, vomiting, dysuria or increase in frequency of urination. Objective - Vital Signs/Intake and Output Vital Signs (last 24 hours): Temp Pulse Resp BP Pulse Ox 98.4 F 91 H 20 131/62 93 L 04/14/18 07:30 04/14/18 07:30 04/14/18 07:30 04/14/18 10:29 04/14/18 07:30 Intake and Output: 04/14/18 04/14/18 06:59 18:59 Intake Total 370 Balance 370 - Medications Medications: Current Medications Albuterol/Ipratropium (Duoneb 3 Mg/0.5 Mg (3 Ml) Ud) 3 ml INH RQ6 [facility] Last Admin: 04/14/18 02:00 Dose: Not Given Amlodipine Besylate (Norvasc) 10 mg PO DAILY [facility] Last Admin: 04/14/18 10:29 Dose: 10 mg Dextrose (Dextrose 50% Inj) 0 ml IV STAT PRN; Protocol PRN Reason: Hypoglycemia Protocol Dextrose (Glutose 15) 0 gm PO ONCE PRN; Protocol PRN Reason: Hypoglycemia Protocol Finasteride (Proscar) 5 mg PO DAILY [facility] Last Admin: 04/14/18 10:28 Dose: 5 mg Furosemide (Lasix) 20 mg IVP DAILY [facility] Last Admin: 04/14/18 10:29 Dose: 20 mg Glucagon (Glucagen Diagnostic Kit) 0 mg IM STAT PRN; Protocol PRN Reason: Hypoglycemia Protocol Hydralazine HCl (Apresoline) 50 mg PO Q8H [facility] Last Admin: 04/14/18 04:00 Dose: 50 mg Dextrose (Dextrose 5% In Water 1000 Ml) 1,000 mls @ 0 mls/hr IV .Q0M PRN; Protocol PRN Reason: Hypoglycemia Protocol Piperacillin Sod/Tazobactam Sod (Zosyn 3.375 Gm Iv Premix) 3.375 gm in 50 mls @ 100 mls/hr IVPB Q6H [facility]; Protocol Last Admin: 04/14/18 10:29 Dose: 100 mls/hr Insulin Aspart (Novolog) 0 unit SC ACHS [facility]; Protocol Last Admin: 04/14/18 08:48 Dose: 6 units Insulin Aspart (Novolog) 14 unit SC TIDAC [facility] Last Admin: 04/14/18 08:48 Dose: 14 u Insulin Glargine (Lantus) 65 unit SC HS [facility] Last Admin: 04/13/18 22:10 Dose: 65 units Lactobacillus Acidophilus (Bacid Acidophilus) 1 cap PO BID [facility] Last Admin: 04/14/18 10:29 Dose: 1 cap Lisinopril (Zestril) 40 mg PO DAILY [facility] Last Admin: 04/14/18 10:29 Dose: 40 mg Methylprednisolone (Solu-Medrol) 40 mg IVP Q12H [facility] Last Admin: 04/13/18 22:10 Dose: 40 mg Metoprolol Succinate (Toprol Xl) 100 mg PO DAILY [facility] Last Admin: 04/14/18 10:29 Dose: 100 mg Metoprolol Tartrate (Lopressor) 5 mg IVP Q6H PRN PRN Reason: SBP>160 Pantoprazole Sodium (Protonix Inj) 40 mg IVP Q12H [facility] Last Admin: 04/14/18 03:59 Dose: 40 mg Tamsulosin HCl (Flomax) 0.4 mg PO DAILY [facility] Last Admin: 04/14/18 10:29 Dose: 0.4 mg - Labs Labs: 04/14/18 07:29 04/14/18 07:29 PT 12.2 SECONDS (9.7-12.2) 04/08/18 03:06 INR 1.1 04/08/18 03:06 APTT 31 SECONDS (21-34) 04/08/18 03:06 Assessment and Plan - Assessment and Plan (Free Text) Assessment: Patient is an 82 year old male w/ PMHx of IDDM, HTN, BPH, and b/l knee arthritis admitted for sob and chest pain. Negative troponins. cardiac cath showed EDP of 46 and non obstructive vasculature. CXR showed bilateral pleural effusions, unknown etiology, possible pulm HTN 2/2 PATRICK. Shortness of Breath Multifactorial including iron deficiency anemia, congestive heart failure, atelecasis, untreated PATRICK Cardiology consulted, Dr. 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 Pillai Patient will need sleep study as out patient GI consulted, Dr. Jason Patient scheduled for EGD on Saturday (currently on hold until neck mass was evaluated) Patient is on Solumedrol 40mg IVP Q8H (active since 04/08/18, decreased from q6h on 04/12/18) likely accounting for leukocytosis Medications Zosyn 3.375mg IV q6h prn (started on 04/08/18) Duoneb 3ml INH RQ6 [facility] Iron Deficiency Anemia GI (Dr. 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 Sweet. We will transfer patient's cardiology care to Dr. Bray x 2 are negative, ProBNP normal. EF Normal. Likely low to moderate cardiac risk for Colonoscopy under conscious sedation. If patient needs Colonoscopy, Cardiac point of view there is no contraindication. At this point do not see the additional therapeutic value for RHC. Will cancel RHC for tomorrow. All further cardiac management as per Dr. Sweet Hoarseness (improving) ENT consulted, Chris Patient was unable to tolerate procedure at bedside on 04/10/[address] findings with Dr. Perez, he requested soft tissue of neck CT with contrast to better evaluate mass at the chan of tongue. He states that patient should not go for EGD until repeat CT is performed. will f/u soft tissue of neck CT w/contrast * CT scan of neck w/o contrast 04/11/18 * Limited study due to swallowing motion artifact which obscures and distorts soft tissue detail of several axial images from the submandibular/sublingual region to the level of the superior aspect of the thyroid cartilage. * There is mild medial position of the right true vocal cord and asymmetry of the pyriform sinuses with slight dilatation of the ipsilateral pyriform sinus compared to the left side.. There are no obvious masses seen the level of the true vocal cord; rule out vocal cord paresis/paralysis. * Mass like appearance of the base of the tongue with questionable atrophy/fatty replacement of the anterior type. Prominent lingual tonsils may contribute to the appearance. Consider follow-up of pre and post- contrast MRI of the neck to exclude a base of tongue mass. * No significant cervical lymphadenopathy * Repeat CT confirmed mass; Behin for biopsy in AM; patient made NPO Elevated Lipase Abd/Pelvis CT: * Mild irregularity of the liver, probable chronic parenchymal liver disease. Benign simple left hepatic lobe cyst. Uncomplicated colonic diverticulosis. Minimal left pleural effusion. Mild right pleural effusion. Passive left airspace disease of both lower lobes. Prostatomegaly. Mild diffuse thickening of the bladder. However secondary to chronic bladder outlet obstruction. Unremarkable CT evaluation of the pancreas. Patient clinically does not look like he has acute pancreatitis. Belly is benign on exam. Low back pain * Lumbar xray: Mild degenerative change. No acute findings. Congestive Heart Failure, Diastolic Coronary Artery Disease * Cardiology (Dr. Andrade) promotions specialist->help appreciated * Transferred care to Dr. Sweet who has seen the patient in the past. * Chest xray: CHF/cardiomegaly * ECHO (04/08/18): reviewed with Dr. Andrade which showed normal EF; Diastolic CHF * CT Chest (04/08/18): small right sided effusion with monitor right basilar atelectasis. trace left effusion and minimal left basilar atelectasis. Mild pulmonary venous congestive changes are present. Small somewhat triangular shaped nodular opacity in the right middle lobe that measures approximately 4.2mm. Subjacent slightly more inferiorly located 5mm nodular opacity. cardiomegaly with small pericardial effusion. small amount of perihepatic ascites again noted. * Cardiac cath (04/11/18): aggressive medical therapy/cardiac risk/medical therapy; moderate double vessel CAD, KALEIGH II flow throughout * Daily weight * Intake and outputs * Medications * Lasix 20mg IVP daily * Lisinopril 40mg PO daily * Toprol XL 100mg PO daily * Aspirin off given anemia Resistant Hypertension Uncontrolled continue to monitor Medications: * Lasix 20mg IVP daily * Lisinopril 40mg PO daily * Amlodipine 10mg PO daily * Metoprolol Succ 100mg PO daily * Hydralazine 50mg PO q8h * Lopressor 5mg IVP q6h prn for SBP>160 - HOLD if HR <60bpm Diabetes * sugars uncontrolled since starting steroids * hgba1c: 8.7 * Medications: * Novolog 14 units TIDAC * Lantus 65 unit subq HS * ISS - medium * Hypoglycemic protocol Enlarged Prostate * Flomax 0.4mg PO Daily * Proscar 5mg PO daily History of peripheral vascular disease * Patient has been taking plavix as outpatient for vascular stents Prophylactic measure * Protonix 40mg [id number] * Hold anticoagulation given anemia * scds contraindicated given history of PAD * PT/OT eval Disposition: Patient has 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 German
[2018-04-14] MEDS: MethylPREDNISolone 40 mg Vial IVP SCH ×2 (13:38→23:00)
--- NOTE | 2018-04-14 14:21 | CT ---
Date of service: 04/13/2018 PROCEDURE: CT NECK WITH CONTRAST HISTORY: evaluate mass at base of tongue COMPARISON: Neck CT with contrast 04/12/2018. TECHNIQUE: CT of the neck with intravenous contrast. Coronal and sagittal reformats generated. Intravenous contrast dose: Visipaque 320, 100 cc Radiation dose: Total exam DLP = 523.36 mGy-cm. This CT exam was performed using one or more of the following dose reduction techniques: Automated exposure control, adjustment of the mA and/or kV according to patient size, and/or use of iterative reconstruction technique. FINDINGS: Evaluation of the suprahyoid neck is remarkable for somewhat poorly marginated intermediate density lesion at the base of the tongue, left side greater than right measuring approximately 2.8 x 2.2 cm potential invasion into the left oropharynx. Left locule appears collapsed with bilateral piriformis sinus is widely patent. There is no suspicious lymphadenopathy identified in the supra or infrahyoid neck. Small nodule is not excluded at the right false vocal cord the true vocal cords symmetric and unremarkable grossly. The inferior hypopharynx, glottis, larynx and trachea appear unremarkable as imaged as well as the anterior oral cavity. The salivary glands and thyroid gland appears stable in the interval. Thoracic inlet is unremarkable swells the bilateral pulmonary apices. CERVICAL SPINE: No fracture or spondylolisthesis. Multilevel cervical spondylosis appears moderate severity. VASCULAR STRUCTURES: Unremarkable. OTHER FINDINGS: None. IMPRESSION: A 2.8 cm mass is poorly marginated at the left greater than right sides of the posterior tongue/tongue base possibly extending into the left or pharyngeal/hyper pharyngeal soft tissues for which tissue diagnosis is recommended to exclude malignancy. No significant lymphadenopathy in the supra or infrahyoid neck. No significant interval change in appearance compared prior contrast neck CT 04/12/2018. Findings discussed with Dr. Perez with written and read back verification 04/14/2018 2:05 p.m..
--- NOTE | 2018-04-14 15:31 | CP.PCM.PN ---
Subjective - Date & Time of Evaluation Date of Evaluation: 04/14/18 Time of Evaluation: 15:29 - Subjective Subjective: Wants to go home Denies dyspnea EGD cancelled (was never scheduled) due to mass at base of tongue anemia stable Objective - Vital Signs/Intake and Output Vital Signs (last 24 hours): Temp Pulse Resp BP Pulse Ox 98.4 F 91 H 20 131/62 93 L 04/14/18 07:30 04/14/18 07:30 04/14/18 07:30 04/14/18 10:29 04/14/18 07:30 Intake and Output: 04/14/18 04/14/18 06:59 18:59 Intake Total 370 Balance 370 - Medications Medications: Current Medications Albuterol/Ipratropium (Duoneb 3 Mg/0.5 Mg (3 Ml) Ud) 3 ml INH RQ6 [facility] Last Admin: 04/14/18 02:00 Dose: Not Given Amlodipine Besylate (Norvasc) 10 mg PO DAILY [facility] Last Admin: 04/14/18 10:29 Dose: 10 mg Dextrose (Dextrose 50% Inj) 0 ml IV STAT PRN; Protocol PRN Reason: Hypoglycemia Protocol Dextrose (Glutose 15) 0 gm PO ONCE PRN; Protocol PRN Reason: Hypoglycemia Protocol Finasteride (Proscar) 5 mg PO DAILY [facility] Last Admin: 04/14/18 10:28 Dose: 5 mg Furosemide (Lasix) 20 mg IVP DAILY [facility] Last Admin: 04/14/18 10:29 Dose: 20 mg Glucagon (Glucagen Diagnostic Kit) 0 mg IM STAT PRN; Protocol PRN Reason: Hypoglycemia Protocol Hydralazine HCl (Apresoline) 50 mg PO Q8H [facility] Last Admin: 04/14/18 13:38 Dose: 50 mg Dextrose (Dextrose 5% In Water 1000 Ml) 1,000 mls @ 0 mls/hr IV .Q0M PRN; Protocol PRN Reason: Hypoglycemia Protocol Piperacillin Sod/Tazobactam Sod (Zosyn 3.375 Gm Iv Premix) 3.375 gm in 50 mls @ 100 mls/hr IVPB Q6H [facility]; Protocol Last Admin: 04/14/18 10:29 Dose: 100 mls/hr Insulin Aspart (Novolog) 0 unit SC ACHS [facility]; Protocol Last Admin: 04/14/18 13:37 Dose: 6 units Insulin Aspart (Novolog) 14 unit SC TIDAC [facility] Last Admin: 04/14/18 13:37 Dose: 14 u Insulin Glargine (Lantus) 65 unit SC HS [facility] Last Admin: 04/13/18 22:10 Dose: 65 units Lactobacillus Acidophilus (Bacid Acidophilus) 1 cap PO BID [facility] Last Admin: 04/14/18 10:29 Dose: 1 cap Lisinopril (Zestril) 40 mg PO DAILY [facility] Last Admin: 04/14/18 10:29 Dose: 40 mg Methylprednisolone (Solu-Medrol) 40 mg IVP Q12H [facility] Last Admin: 04/14/18 13:38 Dose: 40 mg Metoprolol Succinate (Toprol Xl) 100 mg PO DAILY [facility] Last Admin: 04/14/18 10:29 Dose: 100 mg Metoprolol Tartrate (Lopressor) 5 mg IVP Q6H PRN PRN Reason: SBP>160 Pantoprazole Sodium (Protonix Inj) 40 mg IVP Q12H [facility] Last Admin: 04/14/18 03:59 Dose: 40 mg Tamsulosin HCl (Flomax) 0.4 mg PO DAILY [facility] Last Admin: 04/14/18 10:29 Dose: 0.4 mg - Labs Labs: 04/14/18 07:29 04/14/18 07:29 PT 12.2 SECONDS (9.7-12.2) 04/08/18 03:06 INR 1.1 04/08/18 03:06 APTT 31 SECONDS (21-34) 04/08/18 03:06 - Constitutional Appears: Well, No Acute Distress - Respiratory Exam Respiratory Exam: NORMAL BREATHING PATTERN - Cardiovascular Exam Cardiovascular Exam: REGULAR RHYTHM - GI/Abdominal Exam GI & Abdominal Exam: Soft. absent: Tenderness Assessment and Plan (1) Hyponatremia Status: Acute (2) Iron deficiency anemia Assessment & Plan: had colonoscopy in past 2 years Elective EGD can be done as outpatient Now with tongue mass- workup per ENT Status: Acute (3) Shortness of breath Status: Acute
--- NOTE | 2018-04-14 16:07 | CP.PCM.PN ---
Subjective - Date & Time of Evaluation Date of Evaluation: 04/14/18 Time of Evaluation: 10:40 - Subjective Subjective: Patient seen and examined Lying comfortably in no distress CAT scan of the neck noted Afebrile Patient is awake and responsive Objective - Vital Signs/Intake and Output Vital Signs (last 24 hours): Temp Pulse Resp BP Pulse Ox 98.4 F 91 H 20 131/62 93 L 04/14/18 07:30 04/14/18 07:30 04/14/18 07:30 04/14/18 10:29 04/14/18 07:30 Intake and Output: 04/14/18 04/14/18 06:59 18:59 Intake Total 370 Balance 370 - Medications Medications: Current Medications Albuterol/Ipratropium (Duoneb 3 Mg/0.5 Mg (3 Ml) Ud) 3 ml INH RQ6 [facility] Last Admin: 04/14/18 02:00 Dose: Not Given Amlodipine Besylate (Norvasc) 10 mg PO DAILY [facility] Last Admin: 04/14/18 10:29 Dose: 10 mg Dextrose (Dextrose 50% Inj) 0 ml IV STAT PRN; Protocol PRN Reason: Hypoglycemia Protocol Dextrose (Glutose 15) 0 gm PO ONCE PRN; Protocol PRN Reason: Hypoglycemia Protocol Finasteride (Proscar) 5 mg PO DAILY [facility] Last Admin: 04/14/18 10:28 Dose: 5 mg Furosemide (Lasix) 20 mg IVP DAILY [facility] Last Admin: 04/14/18 10:29 Dose: 20 mg Glucagon (Glucagen Diagnostic Kit) 0 mg IM STAT PRN; Protocol PRN Reason: Hypoglycemia Protocol Hydralazine HCl (Apresoline) 50 mg PO Q8H [facility] Last Admin: 04/14/18 13:38 Dose: 50 mg Dextrose (Dextrose 5% In Water 1000 Ml) 1,000 mls @ 0 mls/hr IV .Q0M PRN; P rotocol PRN Reason: Hypoglycemia Protocol Piperacillin Sod/Tazobactam Sod (Zosyn 3.375 Gm Iv Premix) 3.375 gm in 50 mls @ 100 mls/hr IVPB Q6H [facility]; Protocol Last Admin: 04/14/18 10:29 Dose: 100 mls/hr Insulin Aspart (Novolog) 0 unit SC ACHS [facility]; Protocol Last Admin: 04/14/18 13:37 Dose: 6 units Insulin Aspart (Novolog) 14 unit SC TIDAC [facility] Last Admin: 04/14/18 13:37 Dose: 14 u Insulin Glargine (Lantus) 65 unit SC HS [facility] Last Admin: 04/13/18 22:10 Dose: 65 units Lactobacillus Acidophilus (Bacid Acidophilus) 1 cap PO BID [facility] Last Admin: 04/14/18 10:29 Dose: 1 cap Lisinopril (Zestril) 40 mg PO DAILY [facility] Last Admin: 04/14/18 10:29 Dose: 40 mg Methylprednisolone (Solu-Medrol) 40 mg IVP Q12H [facility] Last Admin: 04/14/18 13:38 Dose: 40 mg Metoprolol Succinate (Toprol Xl) 100 mg PO DAILY [facility] Last Admin: 04/14/18 10:29 Dose: 100 mg Metoprolol Tartrate (Lopressor) 5 mg IVP Q6H PRN PRN Reason: SBP>160 Pantoprazole Sodium (Protonix Inj) 40 mg IVP Q12H [facility] Last Admin: 04/14/18 03:59 Dose: 40 mg Tamsulosin HCl (Flomax) 0.4 mg PO DAILY [facility] Last Admin: 04/14/18 10:29 Dose: 0.4 mg - Labs Labs: 04/14/18 07:29 04/14/18 07:29 PT 12.2 SECONDS (9.7-12.2) 04/08/18 03:06 INR 1.1 04/08/18 03:06 APTT 31 SECONDS (21-34) 04/08/18 03:06 - Head Exam Head Exam: ATRAUMATIC, NORMOCEPHALIC - ENT Exam ENT Exam: Mucous Membranes Moist - Neck Exam Neck Exam: Normal Inspection - Respiratory Exam Respiratory Exam: Rhonchi - Cardiovascular Exam Cardiovascular Exam: REGULAR RHYTHM - GI/Abdominal Exam GI & Abdominal Exam: Soft Assessment and Plan (1) Shortness of breath Assessment & Plan: Taper steroids 2.8 cm mass posterior of the tongue ENT workup including biopsy Continue nebulizer treatment Status: Acute (2) Diastolic CHF Status: Acute
[2018-04-14] MEDS: Ammonium Lactate 12% Lotion (225 g) EXT SCH (19:00)
[2018-04-14] MEDS: (Lantus) Insulin Glargine, Recombinant SC SCH (21:52)
[2018-04-15] MEDS: Albuterol-Ipratrop 3 mg / 0.5 (3 ml) UD INH SCH ×4 (01:22→19:34)
[2018-04-15] MEDS: Piperacill/Tazo 3.375gm in Dex 3.375 GM/50 ML BAG IVPB SCH ×3 (02:01→08:51)
[2018-04-15] MEDS ORDERED: (Novolin R) Insulin Human Regular 100 units/ml vial SC ONE (02:05)
[2018-04-15 06:49] LABS: HEMOGLOBIN 7.7 g/dL (12.0-18.0); MEAN CELL VOLUME 67.4 fL (80.0-94.0); MEAN CORPUSCULAR HEMOGLOBIN 20.6 pg (27.0-31.0); MEAN CORPUSCULAR HGB CONC 30.6 g/dL (33.0-37.0); MEAN PLATELET VOLUME 7.7 fL (7.2-11.7); RBC 3.73 Mil/uL (4.40-5.90); WHITE BLOOD COUNT 10.6 K/uL (4.8-10.8)
[2018-04-15 06:54] LABS: ALB/GLOB RATIO 1.2 (1.0-2.1); ALBUMIN 2.9 g/dL (3.5-5.0); ALT/SGPT 51 U/L (21-72); AST/SGOT 34 U/L (17-59); BLOOD UREA NITROGEN 45 mg/dL (9-20); CALCIUM 7.7 mg/dl (8.6-10.4); GFR NON-AFRICAN AMERICAN 58
[2018-04-15] MEDS: (Novolog) Insulin Aspart, Recombinant 100 u/ml 10 ml vial SC SCH ×7 (08:52→21:29)
[2018-04-15 09:42] LABS: LYMPH # 1.1 K/uL (1.0-4.3); MONO # 0.5 K/uL (0.0-0.8)
[2018-04-15] MEDS ORDERED: MethylPREDNISolone 40 mg Vial IVP SCH (11:30)
[2018-04-15] MEDS: Lactobacillus Acidophilus 500 MU Cap PO SCH ×2 (12:20→17:25)
[2018-04-15] MEDS: Ammonium Lactate 12% Lotion (225 g) EXT SCH ×2 (12:20→17:39)
[2018-04-15] MEDS: Metoprolol Succinate 100 mg XL Tab PO SCH (12:20)
[2018-04-15] MEDS ORDERED: Rocuronium 10 mg/ml (5 ml) ONE (12:30)
[2018-04-15] MEDS ORDERED: Succinylcholine Chloride 20 mg/ml Syr (5 ml) IV ONE (12:30)
[2018-04-15] MEDS ORDERED: Lidocaine Hydrochloride 5 ML INJ ONE (12:31)
[2018-04-15] MEDS ORDERED: Etomidate 20 mg/10ml Inj IV ONE (12:31)
[2018-04-15] MEDS ORDERED: Neostigmine 1:1000 (1 mg/ml) Inj ONE (13:00)
[2018-04-15] MEDS: HYDROmorphone 0.5 mg/0.5 ml ISec IVP PRN ×3 (13:20→13:50)
[2018-04-15] MEDS ORDERED: HYDROmorphone 0.5 mg/0.5 ml ISec ONE ×3 (13:23→13:58)
[2018-04-15 14:31] VITALS: RESP 20
--- NOTE | 2018-04-15 14:56 | CP.PCM.PN ---
Subjective - Date & Time of Evaluation Date of Evaluation: 04/15/18 Time of Evaluation: 14:54 - Subjective Subjective: PGY-1 Medicine Progress Note for Dr. German's service S/E at bedside. Offers no acute complaints. Pending neck biopsy. Pending repeat CBC after procedure for possible replacement. Denies fevers, chills, chest pain, sob, n/v, constipation or diarrhea, and dysuria. Objective - Vital Signs/Intake and Output Vital Signs (last 24 hours): Temp Pulse Resp BP Pulse Ox 98.0 F 88 20 144/62 95 04/15/18 14:15 04/15/18 14:15 04/15/18 14:15 04/15/18 14:15 04/15/18 14:15 Intake and Output: 04/15/18 04/15/18 06:59 18:59 Intake Total 350 Balance 350 - Medications Medications: Current Medications Albuterol/Ipratropium (Duoneb 3 Mg/0.5 Mg (3 Ml) Ud) 3 ml INH RQ6 [facility] Last Admin: 04/15/18 13:07 Dose: Not Given Amlodipine Besylate (Norvasc) 10 mg PO DAILY [facility] Last Admin: 04/15/18 12:20 Dose: Not Given Dextrose (Dextrose 50% Inj) 0 ml IV STAT PRN; Protocol PRN Reason: Hypoglycemia Protocol Dextrose (Glutose 15) 0 gm PO ONCE PRN; Protocol PRN Reason: Hypoglycemia Protocol Finasteride (Proscar) 5 mg PO DAILY [facility] Last Admin: 04/15/18 12:20 Dose: Not Given Furosemide (Lasix) 20 mg IVP DAILY [facility] Last Admin: 04/15/18 09:55 Dose: 20 mg Glucagon (Glucagen Diagnostic Kit) 0 mg IM STAT PRN; Protocol PRN Reason: Hypoglycemia Protocol Hydralazine HCl (Apresoline) 50 mg PO Q8H [facility] Last Admin: 04/15/18 14:03 Dose: Not Given Hydromorphone HCl (Dilaudid) 0.5 mg IVP Q15M PRN PRN Reason: Pain, moderate (4-7) Stop: 04/15/18 15:08 Last Admin: 04/15/18 13:50 Dose: 0.5 mg Dextrose (Dextrose 5% In Water 1000 Ml) 1,000 mls @ 0 mls/hr IV .Q0M PRN; Protocol PRN Reason: Hypoglycemia Protocol Insulin Aspart (Novolog) 0 unit SC ACHS [facility]; Protocol Last Admin: 04/15/18 12:20 Dose: Not Given Insulin Aspart (Novolog) 14 unit SC TIDAC [facility] Last Admin: 04/15/18 12:20 Dose: Not Given Insulin Glargine (Lantus) 65 unit SC HS [facility] Last Admin: 04/14/18 21:52 Dose: 65 units Lactic Acid (Lac-Hydrin 12% Lotion (225 G)) 0 gm EXT BID [facility] Last Admin: 04/15/18 12:20 Dose: Not Given Lactobacillus Acidophilus (Bacid Acidophilus) 1 cap PO BID [facility] Last Admin: 04/15/18 12:20 Dose: Not Given Lisinopril (Zestril) 40 mg PO DAILY [facility] Last Admin: 04/15/18 12:21 Dose: Not Given Methylprednisolone (Solu-Medrol) 60 mg IVP ONCE [facility] Metoprolol Succinate (Toprol Xl) 100 mg PO DAILY [facility] Last Admin: 04/15/18 12:20 Dose: Not Given Metoprolol Tartrate (Lopressor) 5 mg IVP Q6H PRN PRN Reason: SBP>160 Pantoprazole Sodium (Protonix Inj) 40 mg IVP Q12H [facility] Last Admin: 04/15/18 05:00 Dose: 40 mg Prednisone (Prednisone Tab) 50 mg PO ONCE ONE Stop: 04/16/18 11:01 Prednisone (Prednisone Tab) 40 mg PO ONCE ONE Stop: 04/17/18 11:01 Prednisone (Prednisone Tab) 30 mg PO ONCE ONE Stop: 04/18/18 11:01 Prednisone (Prednisone Tab) 20 mg PO ONCE ONE Stop: 04/19/18 11:01 Prednisone (Prednisone Tab) 10 mg PO ONCE ONE Stop: 04/20/18 11:01 Tamsulosin HCl (Flomax) 0.4 mg PO DAILY [facility] Last Admin: 04/15/18 12:20 Dose: Not Given - Labs Labs: 04/15/18 06:28 04/15/18 06:44 PT 12.2 SECONDS (9.7-12.2) 04/08/18 03:06 INR 1.1 04/08/18 03:06 APTT 31 SECONDS (21-34) 04/08/18 03:06 - Constitutional Appears: Non-toxic, No Acute Distress - Head Exam Head Exam: NORMAL INSPECTION, NORMOCEPHALIC - Eye Exam Eye Exam: EOMI, Normal appearance. absent: Nystagmus, Scleral icterus - ENT Exam ENT Exam: Mucous Membranes Moist - Respiratory Exam Respiratory Exam: Decreased Breath Sounds, Rales, NORMAL BREATHING PATTERN. absent: Rhonchi, Wheezes - Cardiovascular Exam Cardiovascular Exam: REGULAR RHYTHM, +S1, +S2. absent: Tachycardia - GI/Abdominal Exam GI & Abdominal Exam: Soft, Normal Bowel Sounds. absent: Distended, Firm, Guarding, Rigid, Tenderness - Extremities Exam Extremities Exam: Normal Inspection. absent: Calf Tenderness, Pedal Edema - Neurological Exam Neurological Exam: Alert, Awake, Oriented x3 - Psychiatric Exam Psychiatric exam: Normal Affect, Normal Mood - Skin Skin Exam: Dry, Intact, Normal Color Assessment and Plan - Assessment and Plan (Free Text) Assessment: Patient is an 82 year old male w/ PMHx of IDDM, HTN, BPH, and b/l knee arthritis admitted for sob and chest pain. Negative troponins. cardiac cath showed EDP of 46 and non obstructive vasculature. CXR showed bilateral pleural effusions, unknown etiology, possible pulm HTN 2/2 PATRICK. Shortness of Breath Multifactorial including iron deficiency anemia, congestive heart failure, ate lecasis, untreated PATRICK Cardiology consulted, Dr. 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 Pillai Patient will need sleep study as out patient GI consulted, Dr. Jason outpatient EGD Medications Duoneb 3ml INH RQ6 [facility] Prednisone oral taper to end on 04/20; IV solumedrol 60x 1 Iron Deficiency Anemia GI (Dr. 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 Malagon Ferritin: low, iron: low, High TIBC, high reticulocyte count, elevated RDW Prior hgb: 8.7 in Feb 2018 pending occult blood order 04/08; 04/09; and today Patient taking Motrin as outpatient for low back pain; and plavix for vascular stent in legs Low ferritin Patient reports he has had a colonoscopy 1-2 years ago per cardiology, From the family member its found out that Patient's primary cover marker is Dr. Sweet. We will transfer patient's cardiology care to Dr. Bray x 2 are negative, ProBNP normal. EF Normal. Likely low to moderate cardiac risk for Colonoscopy under conscious sedation. If patient needs Colonoscopy, Cardiac point of view there is no contraindication. At this point do not see the additional therapeutic value for RHC. Will cancel RHC for tomorrow. All further cardiac management as per Dr. Sweet Base of Tongue Mass ENT consulted, Chris Patient was unable to tolerate procedure at bedside on 04/10/[address] findings with Dr. Perez, he requested soft tissue of neck CT with contrast to better evaluate mass at the chan of tongue. He states that patient should not go for EGD until repeat CT is performed. will f/u soft tissue of neck CT w/contrast * CT scan of neck w/o contrast 04/11/18 * Limited study due to swallowing motion artifact which obscures and distorts soft tissue detail of several axial images from the submandibular/sublingual region to the level of the superior aspect of the thyroid cartilage. * There is mild medial position of the right true vocal cord and asymmetry of the pyriform sinuses with slight dilatation of the ipsilateral pyriform sinus compared to the left side.. There are no obvious masses seen the level of the true vocal cord; rule out vocal cord paresis/paralysis. * Mass like appearance of the base of the tongue with questionable atr ophy/fatty replacement of the anterior type. Prominent lingual tonsils may contribute to the appearance. Consider follow-up of pre and post-contrast MRI of the neck to exclude a base of tongue mass. * No significant cervical lymphadenopathy * Repeat CT confirmed mass * Pending biopsy on 04/15 Elevated Lipase Abd/Pelvis CT: * Mild irregularity of the liver, probable chronic parenchymal liver disease. Benign simple left hepatic lobe cyst. Uncomplicated colonic diverticulosis. Minimal left pleural effusion. Mild right pleural effusion. Passive left airspace disease of both lower lobes. Prostatomegaly. Mild diffuse thickening of the bladder. However secondary to chronic bladder outlet obstruction. Unremarkable CT evaluation of the pancreas. Patient clinically does not look like he has acute pancreatitis. Belly is benign on exam. Low back pain * Lumbar xray: Mild degenerative change. No acute findings. Congestive Heart Failure, Diastolic Coronary Artery Disease * Cardiology (Dr. Andrade) product operations associate->help appreciated * Transferred care to Dr. Sweet who has seen the patient in the past. * Chest xray: CHF/cardiomegaly * ECHO (04/08/18): reviewed with Dr. Andrade which showed normal EF; Diastolic CHF * CT Chest (04/08/18): small right sided effusion with monitor right basilar atelectasis. trace left effusion and minimal left basilar atelectasis. Mild pulmonary venous congestive changes are present. Small somewhat triangular shaped nodular opacity in the right middle lobe that measures approximately 4.2mm. Subjacent slightly more inferiorly located 5mm nodular opacity. cardiomegaly with small pericardial effusion. small amount of perihepatic ascites again noted. * Cardiac cath (04/11/18): aggressive medical therapy/cardiac risk/medical therapy; moderate double vessel CAD, KALEIGH II flow throughout * Daily weight * Intake and outputs * Medications * Lasix 20mg IVP daily * Lisinopril 40mg PO daily * Toprol XL 100mg PO daily * Aspirin off given anemia Resistant Hypertension Uncontrolled continue to monitor Medications: * Lasix 20mg IVP daily * Lisinopril 40mg PO daily * Amlodipine 10mg PO daily * Metoprolol Succ 100mg PO daily * Hydralazine 50mg PO q8h * Lopressor 5mg IVP q6h prn for SBP>160 - HOLD if HR <60bpm Diabetes * sugars uncontrolled since starting steroids * hgba1c: 8.7 * Medications: * Novolog 14 units TIDAC * Lantus 65 unit subq HS * ISS - medium * Hypoglycemic protocol Enlarged Prostate * Flomax 0.4mg PO Daily * Proscar 5mg PO daily History of peripheral vascular disease * Patient has been taking plavix as outpatient for vascular stents Prophylactic measure * Protonix 40mg [id number] * Hold anticoagulation given anemia * scds contraindicated given history of PAD * PT/OT eval Disposition: Patient 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 German
--- NOTE | 2018-04-15 15:36 | OP ---
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 PROCEDURE: Direct laryngoscopy with biopsy. SURGEON: Cecil Perez MD DESCRIPTION OF PROCEDURE: The patient was brought into the room, placed in supine position. Anesthesia was initiated through an ET tube. Shoulder roll was placed, neck extended. The patient was draped in usual manner. Tooth guard was placed over the upper teeth in order to protect them and was removed at the end of the case. Direct laryngoscope was inserted into the oral cavity, passed through the oropharynx and hypopharynx. The pharyngeal vigil, base of tongue, vallecula, epiglottis, AE folds, false cords, true cords, piriform sinuses, arytenoids were brought into view. No masses or lesions. Biopsies of the left piriform sinus, left hypopharyngeal wall, and the base of tongue were taken. Bleeding was controlled using cold water irrigation. The tooth guard was removed after the direct laryngoscope was taken out. The patient was taken off anesthesia and taken to recovery room in stable manner. Cecil Perez MD
[2018-04-15 17:35] LABS: HEMOGLOBIN 8.4 g/dL (12.0-18.0); MEAN CELL VOLUME 68.3 fL (80.0-94.0); MEAN CORPUSCULAR HEMOGLOBIN 19.7 pg (27.0-31.0); MEAN CORPUSCULAR HGB CONC 28.9 g/dL (33.0-37.0); MEAN PLATELET VOLUME 7.8 fL (7.2-11.7); RBC 4.27 Mil/uL (4.40-5.90); RED CELL DISTRIBUTION WIDTH 18.4 % (11.5-14.5); WHITE BLOOD COUNT 16.8 K/uL (4.8-10.8)
[2018-04-15] MEDS: (Lantus) Insulin Glargine, Recombinant SC SCH (22:33)
[2018-04-16] MEDS: Albuterol-Ipratrop 3 mg / 0.5 (3 ml) UD INH SCH ×3 (02:00→13:31)
[2018-04-16 04:41] VITALS: O2SAT 94
[2018-04-16 07:47] LABS: MEAN CELL VOLUME 67.9 fL (80.0-94.0); MEAN CORPUSCULAR HEMOGLOBIN 20.3 pg (27.0-31.0); MEAN CORPUSCULAR HGB CONC 29.9 g/dL (33.0-37.0); MEAN PLATELET VOLUME 7.7 fL (7.2-11.7); RBC 3.95 Mil/uL (4.40-5.90); RED CELL DISTRIBUTION WIDTH 18.1 % (11.5-14.5); WHITE BLOOD COUNT 11.5 K/uL (4.8-10.8)
[2018-04-16 07:55] LABS: ALB/GLOB RATIO 1.2 (1.0-2.1); ALBUMIN 3.1 g/dL (3.5-5.0); ALT/SGPT 57 U/L (21-72); AST/SGOT 39 U/L (17-59); BLOOD UREA NITROGEN 33 mg/dL (9-20); CALCIUM 7.9 mg/dl (8.6-10.4); GFR NON-AFRICAN AMERICAN > 60
[2018-04-16 08:06] VITALS: TEMP 98.7
[2018-04-16] MEDS: (Novolog) Insulin Aspart, Recombinant 100 u/ml 10 ml vial SC SCH ×4 (08:19→12:35)
[2018-04-16] MEDS: Lactobacillus Acidophilus 500 MU Cap PO SCH (10:50)
[2018-04-16] MEDS: Ammonium Lactate 12% Lotion (225 g) EXT SCH (10:54)
[2018-04-16] MEDS: Metoprolol Succinate 100 mg XL Tab PO SCH (10:55)
[2018-04-16 11:27] VITALS: BP 177/72
[2018-04-16 12:30] LABS: LYMPH # 1.5 K/uL (1.0-4.3); MONO # 0.5 K/uL (0.0-0.8); NEUT # 9.6 K/uL (1.8-7.0)
--- NOTE | 2018-04-16 12:41 | CP.PCM.PN ---
Subjective - Date & Time of Evaluation Date of Evaluation: 04/16/18 Time of Evaluation: 12:38 - Subjective Subjective: Patient is an 82 year old male w/ PMHx of IDDM, HTN, BPH, and b/l knee arthritis admitted for sob and chest pain. Negative troponins. cardiac cath showed EDP of 46 and non obstructive vasculature. CXR showed bilateral pleural effusions, unknown etiology, possible pulm HTN 2/2 PATRICK. Shortness of Breath Multifactorial including iron deficiency anemia, congestive heart failure, atelecasis, untreated PATRICK Cardiology consulted, Dr. 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 Pillai Patient will need sleep study as out patient GI consulted, Dr. Jason outpatient EGD, CSPY as per GI Medications Duoneb 3ml INH RQ6 [facility] Prednisone oral taper to end on 04/20 Iron Deficiency Anemia GI (Dr. 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 Malagon Ferritin: low, iron: low, High TIBC, high reticulocyte count, elevated RDW Prior hgb: 8.7 in Feb 2018 pending occult blood order 04/08; 04/09; and today Patient taking Motrin as outpatient for low back pain; and plavix for vascular stent in legs Low ferritin Patient reports he has had a colonoscopy 1-2 years ago per cardiology, From the family member its found out that Patient's primary scheduling assistant is Dr. Sweet. We will transfer patient's cardiology care to Dr. SweetTrops x 2 are negative, ProBNP normal. EF Normal. Likely low to moderate cardiac risk for Colonoscopy under conscious sedation. If patient needs Colonoscopy, Cardiac point of view there is no contraindication. At this point do not see the additional therapeutic value for RHC. Will cancel RHC for tomorrow. All further cardiac management as per Dr. Sweet Base of Tongue Mass ENT consulted, Chris Patient was unable to tolerate procedure at bedside on 04/10/[address] findings with Dr. Perez, he requested soft tissue of neck CT with contrast to better evaluate mass at the chan of tongue. He states that patient should not go for EGD until repeat CT is performed. will f/u soft tissue of neck CT w/contrast * CT scan of neck w/o contrast 04/11/18 * Limited study due to swallowing motion artifact which obscures and distorts soft tissue detail of several axial images from the submandibular/sublingual region to the level of the superior aspect of the thyroid cartilage. * There is mild medial position of the right true vocal cord and asymmetry of the pyriform sinuses with slight dilatation of the ipsilateral pyriform sinus compared to the left side.. There are no obvious masses seen the level of the true vocal cord; rule out vocal cord paresis/paralysis. * Mass like appearance of the base of the tongue with questionable atrophy/fatty replacement of the anterior type. Prominent lingual tonsils may contribute to the appearance. Consider follow-up of pre and post- contrast MRI of the neck to exclude a base of tongue mass. * No significant cervical lymphadenopathy * Repeat CT confirmed mass * Biopsy done with Chris on 04/15; started on liquid diet s/p Elevated Lipase Abd/Pelvis CT: * Mild irregularity of the liver, probable chronic parenchymal liver disease. Benign simple left hepatic lobe cyst. Uncomplicated colonic diverticulosis. Minimal left pleural effusion. Mild right pleural effusion. Passive left airspace disease of both lower lobes. Prostatomegaly. Mild diffuse thickening of the bladder. However secondary to chronic bladder outlet obstruction. Unremarkable CT evaluation of the pancreas. Patient clinically does not look like he has acute pancreatitis. Belly is benign on exam. Low back pain * Lumbar xray: Mild degenerative change. No acute findings. Congestive Heart Failure, Diastolic Coronary Artery Disease * Cardiology (Dr. Andrade) bill recapitulation clerk->help appreciated * Transferred care to Dr. Sweet who has seen the patient in the past. * Chest xray: CHF/cardiomegaly * ECHO (04/08/18): reviewed with Dr. Andrade which showed normal EF; Diastolic CHF * CT Chest (04/08/18): small right sided effusion with monitor right basilar atelectasis. trace left effusion and minimal left basilar atelectasis. Mild pulmonary venous congestive changes are present. Small somewhat triangular shaped nodular opacity in the right middle lobe that measures approximately 4.2mm. Subjacent slightly more inferiorly located 5mm nodular opacity. cardiomegaly with small pericardial effusion. small amount of perihepatic ascites again noted. * Cardiac cath (04/11/18): aggressive medical therapy/cardiac risk/medical therapy; moderate double vessel CAD, KALEIGH II flow throughout * Daily weight * Intake and outputs * Medications * Lasix 20mg IVP daily * Lisinopril 40mg PO daily * Toprol XL 100mg PO daily * Aspirin off given anemia Resistant Hypertension Uncontrolled continue to monitor Medications: * Lasix 20mg IVP daily * Lisinopril 40mg PO daily * Amlodipine 10mg PO daily * Metoprolol Succ 100mg PO daily * Hydralazine 50mg PO q8h * Lopressor 5mg IVP q6h prn for SBP>160 - HOLD if HR <60bpm Diabetes * sugars uncontrolled since starting steroids * hgba1c: 8.7 * Medications: * Novolog 14 units TIDAC * Lantus 65 unit subq HS * ISS - medium * Hypoglycemic protocol Enlarged Prostate * Flomax 0.4mg PO Daily * Proscar 5mg PO daily History of peripheral vascular disease * Patient has been taking plavix as outpatient for vascular stents Prophylactic measure * Protonix 40mg [id number] * Hold anticoagulation given anemia * scds contraindicated given history of PAD * PT/OT eval Disposition: 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 German Objective - Vital Signs/Intake and Output Vital Signs (last 24 hours): Temp Pulse Resp BP Pulse Ox 98.7 F 93 H 20 177/72 H 94 L 04/16/18 07:25 04/16/18 07:25 04/16/18 07:25 04/16/18 10:55 04/16/18 07:25 Intake and Output: 04/16/18 04/16/18 06:59 18:59 Intake Total 350 Balance 350 - Medications Medications: Current Medications Albuterol/Ipratropium (Duoneb 3 Mg/0.5 Mg (3 Ml) Ud) 3 ml INH RQ6 [facility] Last Admin: 04/16/18 07:39 Dose: 3 ml Amlodipine Besylate (Norvasc) 10 mg PO DAILY [facility] Last Admin: 04/16/18 10:55 Dose: 10 mg Dextrose (Dextrose 50% Inj) 0 ml IV STAT PRN; Protocol PRN Reason: Hypoglycemia Protocol Dextrose (Glutose 15) 0 gm PO ONCE PRN; Protocol PRN Reason: Hypoglycemia Protocol Finasteride (Proscar) 5 mg PO DAILY [facility] Last Admin: 04/16/18 10:55 Dose: 5 mg Furosemide (Lasix) 20 mg IVP DAILY [facility] Last Admin: 04/16/18 10:55 Dose: 20 mg Glucagon (Glucagen Diagnostic Kit) 0 mg IM STAT PRN; Protocol PRN Reason: Hypoglycemia Protocol Hydralazine HCl (Apresoline) 50 mg PO Q8H [facility] Last Admin: 04/16/18 05:06 Dose: 50 mg Insulin Aspart (Novolog) 0 unit SC ACHS [facility]; Protocol Last Admin: 04/16/18 08:19 Dose: 6 units Insulin Aspart (Novolog) 14 unit SC TIDAC [facility] Last Admin: 04/16/18 08:19 Dose: 14 units Insulin Glargine (Lantus) 65 unit SC HS [facility] Last Admin: 04/15/18 22:33 Dose: 65 units Lactic Acid (Lac-Hydrin 12% Lotion (225 G)) 0 gm EXT BID [facility] Last Admin: 04/15/18 17:39 Dose: 1 dose Lactobacillus Acidophilus (Bacid Acidophilus) 1 cap PO BID [facility] Last Admin: 04/15/18 17:25 Dose: 1 cap Lisinopril (Zestril) 40 mg PO DAILY [facility] Last Admin: 04/16/18 10:55 Dose: 40 mg Methylprednisolone (Solu-Medrol) 60 mg IVP ONCE [facility] Metoprolol Succinate (Toprol Xl) 100 mg PO DAILY [facility] Last Admin: 04/16/18 10:55 Dose: 100 mg Metoprolol Tartrate (Lopressor) 5 mg IVP Q6H PRN PRN Reason: SBP>160 Pantoprazole Sodium (Protonix Inj) 40 mg IVP Q12H [facility] Last Admin: 04/16/18 05:06 Dose: 40 mg Prednisone (Prednisone Tab) 40 mg PO ONCE ONE Stop: 04/17/18 11:01 Prednisone (Prednisone Tab) 30 mg PO ONCE ONE Stop: 04/18/18 11:01 Prednisone (Prednisone Tab) 20 mg PO ONCE ONE Stop: 04/19/18 11:01 Prednisone (Prednisone Tab) 10 mg PO ONCE ONE Stop: 04/20/18 11:01 Tamsulosin HCl (Flomax) 0.4 mg PO DAILY [facility] Last Admin: 04/16/18 10:55 Dose: 0.4 mg - Labs Labs: 04/16/18 07:17 04/16/18 07:17 PT 12.2 SECONDS (9.7-12.2) 04/08/18 03:06 INR 1.1 04/08/18 03:06 APTT 31 SECONDS (21-34) 04/08/18 03:06
--- NOTE | 2018-04-16 13:23 | CP.PCM.PCO ---
Physician Communication Note - Physician Communication Note Physician Communication Note: Please see above
[2018-04-16 16:58] VITALS: PULSE 90
--- NOTE | 2018-04-16 17:02 | CP.PCM.DIS ---
<Stevenson Paredes - Last Filed: 04/16/18 17:00> Provider - Provider Date of Admission: 04/08/18 05:20 Attending physician: Chance Linares MD Consults: 04/08/18 14:07 Pulmonology Consult Routine Comment: Consulting Provider: Jemal Pillai Consulting Physician: Jemal Pillai Reason for Consult: sob, concern for fibrosis vs chf vs pna 04/08/18 14:48 Gastroenterology Consult Routine Comment: Consulting Provider: Fabio Jason Consulting Physician: Fabio Jason Reason for Consult: eval for gi bleed, iron deficiency anemia, sob 04/09/18 20:12 Cardiology Consult Routine Comment: Consulting Provider: Apollo Sweet Consulting Physician: Apollo Sweet Reason for Consult: Chest pain 04/10/18 16:34 ENT [Otolaryngology Consult] Routine Consulting Provider: Cecil Perez Consulting Physician: Cecil Perez Reason for Consult: hoarseness 04/14/18 16:40 Podiatry Consult Routine Comment: Consulting Provider: Richie Dang Consulting Physician: Richie Dang Reason for Consult: toenail care Time Spent in preparation of Discharge (in minutes): 45 Diagnosis - Discharge Diagnosis (1) BPH (benign prostatic hyperplasia) Status: Acute (2) Congestive heart failure Status: Acute (3) Diabetes Status: Acute (4) HTN (hypertension) Status: Acute (5) Iron deficiency anemia Status: Acute (6) Morbid obesity Status: Acute Hospital Course - Lab Results Lab Results: Most Recent Lab Values WBC 11.5 K/uL (4.8-10.8) H 04/16/18 07:17 RBC 3.95 Mil/uL (4.40-5.90) L 04/16/18 07:17 Hgb 8.0 g/dL (12.0-18.0) L 04/16/18 07:17 Hct 26.8 % (35.0-51.0) L 04/16/18 07:17 MCV 67.9 fL (80.0-94.0) L 04/16/18 07:17 MCH 20.3 pg (27.0-31.0) L 04/16/18 07:17 MCHC 29.9 g/dL (33.0-37.0) L 04/16/18 07:17 RDW 18.1 % (11.5-14.5) H 04/16/18 07:17 Plt Count 329 K/uL (130-400) 04/16/18 07:17 MPV 7.7 fL (7.2-11.7) 04/16/18 07:17 Neut % (Auto) 8.0 % (50.0-75.0) L 04/16/18 07:17 Lymph % (Auto) 13.0 % (20.0-40.0) L 04/16/18 07:17 [place] % (Auto) 4.0 % (0.0-10.0) 04/16/18 07:17 Eos % (Auto) 0.0 % (0.0-4.0) 04/16/18 07:17 Baso % (Auto) 0.0 % (0.0-2.0) 04/16/18 07:17 Neut # (Auto) 9.6 K/uL (1.8-7.0) H 04/16/18 07:17 Lymph # (Auto) 1.5 K/uL (1.0-4.3) 04/16/18 07:17 [place] # (Auto) 0.5 K/uL (0.0-0.8) 04/16/18 07:17 Eos # (Auto) 0.0 K/uL (0.0-0.7) 04/16/18 07:17 Baso # (Auto) 0.0 K/uL (0.0-0.2) 04/16/18 07:17 Neutrophils % (Manual) 88 % (50-75) H 04/14/18 07:29 Band Neutrophils % 3 % (0-2) H 04/14/18 07:29 Lymphocytes % (Manual) 8 % (20-40) L 04/14/18 07:29 Monocytes % (Manual) 1 % (0-10) 04/14/18 07:29 Nucleated RBC % 2 % (0-0) H 04/14/18 07:29 Platelet Estimate Normal (NORMAL) 04/14/18 07:29 Polychromasia Slight 04/13/18 08:10 Hypochromasia (manual) Moderate 04/14/18 07:29 Poikilocytosis (manual Slight 04/13/18 08:10 Anisocytosis (manual) Slight 04/14/18 07:29 Microcytosis (manual) Slight 04/14/18 07:29 Target Cells Slight 04/13/18 08:10 Tear Drop Cells Slight 04/13/18 08:10 Ovalocytes Slight 04/13/18 08:10 Retic Count 2.3 % (0.5-1.5) H 04/08/18 11:28 PT 12.2 SECONDS (9.7-12.2) 04/08/18 03:06 INR 1.1 04/08/18 03:06 APTT 31 SECONDS (21-34) 04/08/18 03:06 Puncture Site Lra 04/10/18 11:22 pCO2 40 mm/Hg (35-45) 04/10/18 11:22 pO2 79 mm/Hg (80-100) L 04/10/18 11:22 HCO3 27.1 mmol/L (21-28) 04/10/18 11:22 ABG pH 7.44 (7.35-7.45) 04/10/18 11:22 ABG Total CO2 28.4 mmol/L (22-28) H 04/10/18 11:22 ABG O2 Saturation 99.5 % (95-98) H 04/10/18 11:22 ABG Base Excess 2.8 mmol/L (-2.0-3.0) 04/10/18 11:22 ABG Hemoglobin 8.1 g/dL (11.7-17.4) L 04/10/18 11:22 ABG Carboxyhemoglobin 3.1 % (0.5-1.5) H 04/10/18 11:22 POC ABG HHb (Measured) 0.5 % (0.0-5.0) 04/10/18 11:22 ABG Methemoglobin 1.7 % (0.0-3.0) 04/10/18 11:22 Spike Test Pos 04/10/18 11:22 ABG Potassium 4.4 mmol/L (3.6-5.2) 04/09/18 16:45 A-a O2 Difference 21.0 mm/Hg 04/10/18 11:22 Respiratory Index 0.3 04/10/18 11:22 Hgb O2 Saturation 94.7 % (95.0-98.0) L 04/10/18 11:22 Sodium 130.0 mmol/l (132-148) L 04/09/18 16:45 Chloride 100.0 mmol/L (98-107) 04/09/18 16:45 Glucose 364 mg/dl (75-110) H 04/09/18 16:45 Lactate 1.5 mmol/L (0.7-2.1) 04/09/18 16:45 Liter Flow 3.0 04/08/18 19:10 FiO2 21.0 % 04/10/18 11:22 Sodium 134 mmol/L (132-148) 04/16/18 07:17 Potassium 3.6 mmol/L (3.6-5.2) 04/16/18 07:17 Chloride 95 mmol/L (98-107) L 04/16/18 07:17 Carbon Dioxide 35 mmol/L (22-30) H 04/16/18 07:17 Anion Gap 6 (10-20) L 04/16/18 07:17 BUN 33 mg/dL (9-20) H 04/16/18 07:17 Creatinine 0.8 mg/dL (0.8-1.5) 04/16/18 07:17 Est GFR ( Amer) > 60 04/16/18 07:17 Est GFR (Non-Af Amer) > 60 04/16/18 07:17 POC Glucose (mg/dL) 256 mg/dL (65-110) H 04/16/18 11:17 Random Glucose 229 mg/dL (75-110) H D 04/16/18 07:17 Hemoglobin A1c 8.7 % (4.2-6.5) H 04/08/18 11:28 Serum Osmolality 276 mosm/kg (272-300) 04/08/18 11:28 Calcium 7.9 mg/dl (8.6-10.4) L 04/16/18 07:17 Phosphorus 5.0 mg/dL (2.5-4.5) H 04/15/18 06:44 Magnesium 2.5 mg/dL (1.6-2.3) H 04/15/18 06:44 Iron 17 ug/dL (49-181) L 04/09/18 13:50 TIBC 500 ug/dL (250-450) H 04/09/18 13:50 % Saturation 3 (20-55) L 04/09/18 13:50 Ferritin 5.9 ng/mL 04/09/18 13:50 Total Bilirubin 0.5 mg/dL (0.2-1.3) 04/16/18 07:17 AST 39 U/L (17-59) 04/16/18 07:17 ALT 57 U/L (21-72) 04/16/18 07:17 Alkaline Phosphatase 99 U/L (38-126) 04/16/18 07:17 Total Creatine Kinase 229 U/L (55-170) H 04/08/18 17:30 CK-MB (Mass) 2.78 ng/mL (0.0-3.38) 04/08/18 17:30 Troponin I < 0.0120 ng/mL (0.00-0.120) 04/08/18 17:30 NT-Pro-B Natriuret Pep 682 pg/mL (0-900) 04/09/18 13:50 Total Protein 5.6 g/dL (6.3-8.3) L 04/16/18 07:17 Albumin 3.1 g/dL (3.5-5.0) L 04/16/18 07:17 Globulin 2.5 gm/dL (2.2-3.9) 04/16/18 07:17 Albumin/Globulin Ratio 1.2 (1.0-2.1) 04/16/18 07:17 Triglycerides 120 mg/dL (0-149) 04/08/18 11:28 Cholesterol 150 mg/dL (0-199) 04/08/18 11:28 LDL Cholesterol Direct 94 mg/dL (0-129) 04/08/18 11:28 HDL Cholesterol 36 mg/dL (30-70) 04/08/18 11:28 Lipase 330 U/L (23-300) H 04/08/18 03:06 Prostate Specific Ag 0.641 ng/mL (0.00-4.0) 04/09/18 16:27 Procalcitonin < 0.05 NG/ML (0.19-0.49) L 04/08/18 13:50 Arterial Blood Potassium 4.4 mmol/L (3.6-5.2) 01/30/19 16:45 Urine Osmolality 251 mosm/kg (300-1000) L 04/08/18 18:40 Ur Random Sodium 75 mmol/L 04/08/18 18:40 Stool Occult Blood Negative (NEGATIVE) 04/12/18 22:29 H.influenzae Type B Ag Negative (NEGATIVE) 04/08/18 13:50 Ur L.pneumophila Ag Negative (NEGATIVE) 04/08/18 13:50 Mycoplasma pneumon IgM Negative (NEGATIVE) 04/08/18 13:50 N.meningitidis ACY/W135 Negative (NEGATIVE) 04/08/18 13:50 N.meningi B/E.coli K1 Ag Negative (NEGATIVE) 04/08/18 13:50 Group B Strep Antigen Negative (NEGATIVE) 04/08/18 13:50 S. pneumoniae Antigen Negative (NEGATIVE) 04/08/18 13:50 - Hospital Course Hospital Course: Upon Admission This is an 82 year old male with PMH of IDDM, HTN, BPH, arthritis who was brought in by ambulance for a 1 week history of worsening chest discomfort and shortness of breath on exertion. Pt describes the chest discomfort as a pressure across the lower chest/upper abdomen. He states that he becomes short of breath after walking approximately 15 feet, and states that he has had a cough productive of white sputum for the past week as well. Patient is also complaining of lower back pain which has been going on for some time now, he is unable to state how long. He denies fever, chills, palpitations, abdominal pain, n/v/d, hematochezia, melena, falls, syncope, dizziness, weakness, weight loss, decreased appetite, hematuria, new urinary complaints. He endorses chronic blurry vision. He states that he has gained approximately 20 pounds over the past year. Hospital Course Patient admitted for sob and chest pain for 2 weeks. Found on chest xray to bilateral pleural effusions. Cardiac cath was done which showed patient has pulmonary HTN. During cardiac cath, patient's blood pressure was noted to be severely elevated with jason. Patient's blood pressure medications were adjusted to achieve better control. Patient was started on BPH meds for improved diuresis of pleural effusions. Patient's diabetes medications were adjusted to get better control. Patient was given bipap nightly as patient very likely to have PATRICK. On labs patient was noted to be anemic. GI was consulted and wanted to do CSPY/Endoscopy. However, patient complained of hoarseness and CT of neck was done showing a mass. Patient had no obstructive symptoms due to mass. ENT was consulted and biopsy was performed. GI recommended outpatient follow for Endoscopy/CSPY as patient H&H was stable although low and was hemodynamically stable as well. Patient was discharged with very specific instructions as outlined below. Discharge Plan 1). Schedule follow up appointment with your primary care physician Dr. Malagon for managment of your health care. Please bring these instructions with you for Dr. Malagon's review at the time of your appointment. 2). Through Dr. Malagon's office you will need to obtain referral for Upper Endoscopy and Colonoscopy for further evaluation of your anemia. This should be done as soon as possible as your blood level is low. 3). Through Dr. Malagon's office you will need to obtain referral for Sleep Study to see if you have sleep apnea (stoppoing breathing at night while asleep). 4). Schedule follow up with your Fire Sprinkler Inspector Dr. Diann Sweet for your history of heart disease and heart failure. 5). Schedule appointment with throat specialist Dr. 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 His office number is [phone] and his office is located at [address] [place] [address], [address] [place] [address]. 6). Please have the following prescriptions filled at your pharmacy on your way home from the hospital and use as directed: Flomax 0.4 mg, 1 tablet by mouth 1x/day (8 AM), Dispense #30 Finasteride 5 mg, 1 tablet by mouth 1x/day (2 PM), Dispense #30 Furosemide 20 mg, 1 tablet by mouth 1x/day (2 PM), Dispense #30 Hydralazine 50 mg, 1 tablet by mouth 3x/day (8 AM, 2 PM, 8 PM), Dispense #90 Lisinopril 40 mg, 1 tablet by mouth 1x/day (2 PM), Dispense #30 Metoprolol XL 100 mg, 1 tablet by mouth 1x/day (8 AM), Dispense #30 Norvasc 10 mg, 1 tablet by mouth 1x/day (2 PM), Dispense #30 Lantus 100 units/ml, 65 units subcutaneous 1x/day (10 PM), Dispense 10 ml Aspart Insulin 100 units/ml, 14 units subcutaneous before breakfast, lunch, and dinner, Dispense 10 ml Atorvastatin 10 mg, 1 tablet by mouth 1x/day (8 PM), Dispense #30 Aspirin 81 mg, 1 tablet by mouth 1x/day (8 AM), Dispense #30 Ferrous Sulfate 325 mg, 1 tablet by mouth 1x/day (8 AM), Dispense #30 Omeprazole 40 mg, 1 tablet by mouth 1x/day (8 AM), Dispense #30 Prednisone 10 mg, 4 tablet by mouth at once at 8 AM on 04/17/18, 3 tablets by mouth at once at 8 AM on 04/18/18, 2 tablets by mouth at once at 8 AM on 04/19/18, 1 tablet by mouth at once at 8 AM on 04/20/18, Dispense #10 7). Please make sure that you are having a bannana at breakfast to help keep your potassium up. 8). Please do NOT delay in following the above instructions. Failure to follow the above instructions will result in bad outcome for your health. 9). Please take care and be well. Discharge Exam - Additional Findings Additional findings: - Constitutional Appears: Non-toxic, No Acute Distress - Head Exam Head Exam: ATRAUMATIC, NORMAL INSPECTION - Eye Exam Eye Exam: EOMI - ENT Exam ENT Exam: Mucous Membranes Moist - Neck Exam Neck exam: Positive for: Normal Inspection - Respiratory Exam Respiratory Exam: Wheezes, NORMAL BREATHING PATTERN. absent: Rales, Rhonchi, Respiratory Distress - Cardiovascular Exam Cardiovascular Exam: REGULAR RHYTHM, +S1, +S2. absent: JVD - GI/Abdominal Exam GI & Abdominal Exam: Distended (with tympany, normal as per pt), Normal Bowel Sounds. absent: Firm, Guarding, Pulsatile Mass, Rebound, Rigid, Tenderness - Rectal Exam Rectal Exam: Deferred - Extremities Exam Extremities exam: Positive for: normal capillary refill, pedal edema, pedal pulses present. 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 absent: CVA tenderness (L), CVA tenderness (R) - Neurological Exam Neurological exam: Alert, Oriented x3 - Psychiatric Exam Psychiatric exam: Normal Affect, Normal Mood - Skin Skin Exam: Dry, Normal Color, Warm Discharge Plan - Discharge Medications Prescriptions: amLODIPine [Norvasc] 10 mg PO DAILY #30 tab Aspirin 81 mg PO DAILY #30 tab.chew Atorvastatin [Lipitor] 10 mg PO DIN #30 tab Ferrous Sulfate 325 mg PO DAILY #30 tablet Finasteride 5 mg PO DAILY #30 tablet Furosemide [Lasix] 20 mg PO DAILY #30 tab hydrALAZINE [Apresoline] 50 mg PO Q8H #90 tab Insulin Aspart, Recombinant [Novolog] 14 unit SC TIDAC #10 vial Insulin Glargine, Recombina [Lantus] 65 unit SC HS #10 vial Lisinopril [Zestril] 40 mg PO DAILY #30 tab Metoprolol Succinate 100 mg PO DAILY #30 tab.er.24h Omeprazole 40 mg PO DAILY #30 capsule. predniSONE [predniSONE Tab] 40 mg PO ONCE #1 tab predniSONE [predniSONE Tab] 30 mg PO ONCE #1 tab predniSONE [predniSONE Tab] 20 mg PO ONCE #1 tab predniSONE [predniSONE Tab] 10 mg PO ONCE #1 tab Tamsulosin [Flomax] 1 tab PO DAILY #30 cap - Follow Up Plan Condition: FAIR Disposition: HOME/ ROUTINE Instructions: Heart Healthy Diet, Diabetes Exchange Diet, Heart Failure, Adult (DC), Shortness of Breath (Dyspnea) (DC), Diabetes Diet , Chest Pain (DC), Furosemide, Prednisone, Tamsulosin, Insulin Aspart, Insulin Glargine, Normocytic Normochromic Anemia (DC) Additional Instructions: Upon Admission This is an 82 year old male with PMH of IDDM, HTN, BPH, arthritis who was brought in by ambulance for a 1 week history of worsening chest discomfort and shortness of breath on exertion. Pt describes the chest discomfort as a pressure across the lower chest/upper abdomen. He states that he becomes short of breath after walking approximately 15 feet, and states that he has had a cough productive of white sputum for the past week as well. Patient is also complaining of lower back pain which has been going on for some time now, he is unable to state how long. He denies fever, chills, palpitations, abdominal pain, n/v/d, hematochezia, melena, falls, syncope, dizziness, weakness, weight loss, decreased appetite, hematuria, new urinary complaints. He endorses chronic blurry vision. He states that he has gained approximately 20 pounds over the past year. Hospital Course Patient admitted for sob and chest pain for 2 weeks. Found on chest xray to bilateral pleural effusions. Cardiac cath was done which showed patient has pulmonary HTN. During cardiac cath, patient's blood pressure was noted to be severely elevated with jason. Patient's blood pressure medications were adjusted to achieve better control. Patient was started on BPH meds for improved diuresis of pleural effusions. Patient's diabetes medications were adjusted to get better control. Patient was given bipap nightly as patient very likely to have PATRICK. On labs patient was noted to be anemic. GI was consulted and wanted to do CSPY/Endoscopy. However, patient complained of hoarseness and CT of neck was done showing a mass. Patient had no obstructive symptoms due to mass. ENT was consulted and biopsy was performed. GI recommended outpatient follow for Endoscopy/CSPY as patient H&H was stable although low and was hemodynamically stable as well. Patient was discharged with very specific instructions as outlined below. Discharge Plan 1). Schedule follow up appointment with your primary care physician Dr. Malagon for managment of your health care. Please bring these instructions with you for Dr. Malagon's review at the time of your appointment. 2). Through Dr. Malagon's office you will need to obtain referral for Upper Endoscopy and Colonoscopy for further evaluation of your anemia. This should be done as soon as possible as your blood level is low. 3). Through Dr. Malagon's office you will need to obtain referral for Sleep Study to see if you have sleep apnea (stoppoing breathing at night while asleep). 4). Schedule follow up with your Fire Sprinkler Inspector Dr. Diann Sweet for your history of heart disease and heart failure. 5). Schedule appointment with throat specialist Dr. 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 His office number is [phone] and his office is located at [address] [place] [address], [address] [place] [address]. 6). Please have the following prescriptions filled at your pharmacy on your way home from the hospital and use as directed: Flomax 0.4 mg, 1 tablet by mouth 1x/day (8 AM), Dispense #30 Finasteride 5 mg, 1 tablet by mouth 1x/day (2 PM), Dispense #30 Furosemide 20 mg, 1 tablet by mouth 1x/day (2 PM), Dispense #30 Hydralazine 50 mg, 1 tablet by mouth 3x/day (8 AM, 2 PM, 8 PM), Dispense #90 Lisinopril 40 mg, 1 tablet by mouth 1x/day (2 PM), Dispense #30 Metoprolol XL 100 mg, 1 tablet by mouth 1x/day (8 AM), Dispense #30 Norvasc 10 mg, 1 tablet by mouth 1x/day (2 PM), Dispense #30 Lantus 100 units/ml, 65 units subcutaneous 1x/day (10 PM), Dispense 10 ml Aspart Insulin 100 units/ml, 14 units subcutaneous before breakfast, lunch, and dinner, Dispense 10 ml Atorvastatin 10 mg, 1 tablet by mouth 1x/day (8 PM), Dispense #30 Aspirin 81 mg, 1 tablet by mouth 1x/day (8 AM), Dispense #30 Ferrous Sulfate 325 mg, 1 tablet by mouth 1x/day (8 AM), Dispense #30 Omeprazole 40 mg, 1 tablet by mouth 1x/day (8 AM), Dispense #30 Prednisone 10 mg, 4 tablet by mouth at once at 8 AM on 04/17/18, 3 tablets by mouth at once at 8 AM on 04/18/18, 2 tablets by mouth at once at 8 AM on 04/19/18, 1 tablet by mouth at once at 8 AM on 04/20/18, Dispense #10 7). Please make sure that you are having a bannana at breakfast to help keep your potassium up. 8). Please do NOT delay in following the above instructions. Failure to follow the above instructions will result in bad outcome for your health. 9). Please take care and be well. <Chance Linares - Last Filed: 04/22/18 19:13> Provider - Provider Date of Admission: 04/08/18 05:20 Attending physician: Chance Linares MD Consults: 04/08/18 14:07 Pulmonology Consult Routine Comment: Consulting Provider: Jemal Pillai Consulting Physician: Jemal Pillai Reason for Consult: sob, concern for fibrosis vs chf vs pna 04/08/18 14:48 Gastroenterology Consult Routine Comment: Consulting Provider: Fabio Jason Consulting Physician: Fabio Jason Reason for Consult: eval for gi bleed, iron deficiency anemia, sob 04/09/18 20:12 Cardiology Consult Routine Comment: Consulting Provider: Apollo Sweet Consulting Physician: Apollo Sweet Reason for Consult: Chest pain 04/10/18 16:34 ENT [Otolaryngology Consult] Routine Consulting Provider: Cecil Perez Consulting Physician: Cecil Perez Reason for Consult: hoarseness 04/14/18 16:40 Podiatry Consult Routine Comment: Consulting Provider: Richie Dang Consulting Physician: Richie Dang Reason for Consult: [facility] Hospital Course - Lab Results Lab Results: Most Recent Lab Values WBC 11.5 K/uL (4.8-10.8) H 04/16/18 07:17 RBC 3.95 Mil/uL (4.40-5.90) L 04/16/18 07:17 Hgb 8.0 g/dL (12.0-18.0) L 04/16/18 07:17 Hct 26.8 % (35.0-51.0) L 04/16/18 07:17 MCV 67.9 fL (80.0-94.0) L 04/16/18 07:17 MCH 20.3 pg (27.0-31.0) L 04/16/18 07:17 MCHC 29.9 g/dL (33.0-37.0) L 04/16/18 07:17 RDW 18.1 % (11.5-14.5) H 04/16/18 07:17 Plt Count 329 K/uL (130-400) 04/16/18 07:17 MPV 7.7 fL (7.2-11.7) 04/16/18 07:17 Neut % (Auto) 8.0 % (50.0-75.0) L 04/16/18 07:17 Lymph % (Auto) 13.0 % (20.0-40.0) L 04/16/18 07:17 [place] % (Auto) 4.0 % (0.0-10.0) 04/16/18 07:17 Eos % (Auto) 0.0 % (0.0-4.0) 04/16/18 07:17 Baso % (Auto) 0.0 % (0.0-2.0) 04/16/18 07:17 Neut # (Auto) 9.6 K/uL (1.8-7.0) H 04/16/18 07:17 Lymph # (Auto) 1.5 K/uL (1.0-4.3) 04/16/18 07:17 [place] # (Auto) 0.5 K/uL (0.0-0.8) 04/16/18 07:17 Eos # (Auto) 0.0 K/uL (0.0-0.7) 04/16/18 07:17 Baso # (Auto) 0.0 K/uL (0.0-0.2) 04/16/18 07:17 Neutrophils % (Manual) 88 % (50-75) H 04/14/18 07:29 Band Neutrophils % 3 % (0-2) H 04/14/18 07:29 Lymphocytes % (Manual) 8 % (20-40) L 04/14/18 07:29 Monocytes % (Manual) 1 % (0-10) 04/14/18 07:29 Nucleated RBC % 2 % (0-0) H 04/14/18 07:29 Platelet Estimate Normal (NORMAL) 04/14/18 07:29 Polychromasia Slight 04/13/18 08:10 Hypochromasia (manual) Moderate 04/14/18 07:29 Poikilocytosis (manual Slight 04/13/18 08:10 Anisocytosis (manual) Slight 04/14/18 07:29 Microcytosis (manual) Slight 04/14/18 07:29 Target Cells Slight 04/13/18 08:10 Tear Drop Cells Slight 04/13/18 08:10 Ovalocytes Slight 04/13/18 08:10 Retic Count 2.3 % (0.5-1.5) H 04/08/18 11:28 PT 12.2 SECONDS (9.7-12.2) 04/08/18 03:06 INR 1.1 04/08/18 03:06 APTT 31 SECONDS (21-34) 04/08/18 03:06 Puncture Site Lra 04/10/18 11:22 pCO2 40 mm/Hg (35-45) 04/10/18 11:22 pO2 79 mm/Hg (80-100) L 04/10/18 11:22 HCO3 27.1 mmol/L (21-28) 04/10/18 11:22 ABG pH 7.44 (7.35-7.45) 04/10/18 11:22 ABG Total CO2 28.4 mmol/L (22-28) H 04/10/18 11:22 ABG O2 Saturation 99.5 % (95-98) H 04/10/18 11:22 ABG Base Excess 2.8 mmol/L (-2.0-3.0) 04/10/18 11:22 ABG Hemoglobin 8.1 g/dL (11.7-17.4) L 04/10/18 11:22 ABG Carboxyhemoglobin 3.1 % (0.5-1.5) H 04/10/18 11:22 POC ABG HHb (Measured) 0.5 % (0.0-5.0) 04/10/18 11:22 ABG Methemoglobin 1.7 % (0.0-3.0) 04/10/18 11:22 Spike Test Pos 04/10/18 11:22 ABG Potassium 4.4 mmol/L (3.6-5.2) 04/09/18 16:45 A-a O2 Difference 21.0 mm/Hg 04/10/18 11:22 Respiratory Index 0.3 04/10/18 11:22 Hgb O2 Saturation 94.7 % (95.0-98.0) L 04/10/18 11:22 Sodium 130.0 mmol/l (132-148) L 04/09/18 16:45 Chloride 100.0 mmol/L (98-107) 04/09/18 16:45 Glucose 364 mg/dl (75-110) H 04/09/18 16:45 Lactate 1.5 mmol/L (0.7-2.1) 04/09/18 16:45 Liter Flow 3.0 04/08/18 19:10 FiO2 21.0 % 04/10/18 11:22 Sodium 134 mmol/L (132-148) 04/16/18 07:17 Potassium 3.6 mmol/L (3.6-5.2) 04/16/18 07:17 Chloride 95 mmol/L (98-107) L 04/16/18 07:17 Carbon Dioxide 35 mmol/L (22-30) H 04/16/18 07:17 Anion Gap 6 (10-20) L 04/16/18 07:17 BUN 33 mg/dL (9-20) H 04/16/18 07:17 Creatinine 0.8 mg/dL (0.8-1.5) 04/16/18 07:17 Est GFR ( Amer) > 60 04/16/18 07:17 Est GFR (Non-Af Amer) > 60 04/16/18 07:17 POC Glucose (mg/dL) 256 mg/dL (65-110) H 04/16/18 11:17 Random Glucose 229 mg/dL (75-110) H D 04/16/18 07:17 Hemoglobin A1c 8.7 % (4.2-6.5) H 04/08/18 11:28 Serum Osmolality 276 mosm/kg (272-300) 04/08/18 11:28 Calcium 7.9 mg/dl (8.6-10.4) L 04/16/18 07:17 Phosphorus 5.0 mg/dL (2.5-4.5) H 04/15/18 06:44 Magnesium 2.5 mg/dL (1.6-2.3) H 04/15/18 06:44 Iron 17 ug/dL (49-181) L 04/09/18 13:50 TIBC 500 ug/dL (250-450) H 04/09/18 13:50 % Saturation 3 (20-55) L 04/09/18 13:50 Ferritin 5.9 ng/mL 04/09/18 13:50 Total Bilirubin 0.5 mg/dL (0.2-1.3) 04/16/18 07:17 AST 39 U/L (17-59) 04/16/18 07:17 ALT 57 U/L (21-72) 04/16/18 07:17 Alkaline Phosphatase 99 U/L (38-126) 04/16/18 07:17 Total Creatine Kinase 229 U/L (55-170) H 04/08/18 17:30 CK-MB (Mass) 2.78 ng/mL (0.0-3.38) 04/08/18 17:30 Troponin I < 0.0120 ng/mL (0.00-0.120) 04/08/18 17:30 NT-Pro-B Natriuret Pep 682 pg/mL (0-900) 04/09/18 13:50 Total Protein 5.6 g/dL (6.3-8.3) L 04/16/18 07:17 Albumin 3.1 g/dL (3.5-5.0) L 04/16/18 07:17 Globulin 2.5 gm/dL (2.2-3.9) 04/16/18 07:17 Albumin/Globulin Ratio 1.2 (1.0-2.1) 04/16/18 07:17 Triglycerides 120 mg/dL (0-149) 04/08/18 11:28 Cholesterol 150 mg/dL (0-199) 04/08/18 11:28 LDL Cholesterol Direct 94 mg/dL (0-129) 04/08/18 11:28 HDL Cholesterol 36 mg/dL (30-70) 04/08/18 11:28 Lipase 330 U/L (23-300) H 04/08/18 03:06 Prostate Specific Ag 0.641 ng/mL (0.00-4.0) 04/09/18 16:27 Procalcitonin < 0.05 NG/ML (0.19-0.49) L 04/08/18 13:50 Arterial Blood Potassium 4.4 mmol/L (3.6-5.2) 04/09/18 16:45 Urine Osmolality 251 mosm/kg (300-1000) L 04/08/18 18:40 Ur Random Sodium 75 mmol/L 04/08/18 18:40 Stool Occult Blood Negative (NEGATIVE) 04/12/18 22:29 H.influenzae Type B Ag Negative (NEGATIVE) 04/08/18 13:50 Ur L.pneumophila Ag Negative (NEGATIVE) 04/08/18 13:50 Mycoplasma pneumon IgM Negative (NEGATIVE) 04/08/18 13:50 N.meningitidis ACY/W135 Negative (NEGATIVE) 04/08/18 13:50 N.meningi B/E.coli K1 Ag Negative (NEGATIVE) 04/08/18 13:50 Group B Strep Antigen Negative (NEGATIVE) 04/08/18 13:50 S. pneumoniae Antigen Negative (NEGATIVE) 04/08/18 13:50
--- NOTE | 2018-04-17 08:03 | PCM.HF ---
Heart Failure Core Measure - Heart Failure Ejection Fraction: 40 % or Greater DANNA Inhibitor Prescribed: Yes Beta-Stacy Prescribed: Metoprolol Succinate Angiotensin II Receptor Stacy Prescribed: No Contraindication/Reason for not providing: on arb AnticoagulationTherapy for Atrial Fibrillation/Atrialflutter: No Contraindication/Reason for not providing: no hx of a fib Aldosterone Antagonist Prescribed: No Contraindication/Reason for not providing: ef>45 Hydralazine Nitrate Prescribed: Yes Implantable Cardioverter Defibrillator Therapy: No Contraindication/Reason for not providing: ef>45 Cardiac Resynchronization Therapy Prescribed: No Contraindication/Reason for not providing: ef>45 - Follow up Will be discharged to: Home Follow Up Date (must be within 7 days from discharge): 04/21/18 Follow Up Time: 08:00
--- NOTE | 2018-04-23 14:31 | PQF ---
PROVIDER RESPONSE TEXT: Provider was unable to determine a response for this query. REVIEWER QUERY TEXT: Diabetes Type Diabetes is documented in the Medical Record. Please specify the type Such as: -- Type I diabetes mellitus -- Type II diabetes mellitus -- Diabetes due to drug or chemicals -- Diabetes due to an underlying medical condition -- Other, please specify The patient's Clinical Indicators include: DM ON INSULIN Query created by: Cristiane Augustine on 04/17/2018 8:08 PM Electronically signed by: Chance Linares MD 04/23/2018 2:28 PM
== END 2018-04-16 15:55 | disposition home or self-care (01) | DRG 287 ==
LOC: C.ER 02:27 → C.9E 05:20 → C.6T 14:45
PROVIDERS: ADMIT Family Medicine; ATTEND Family Medicine
PROC: 4A023N7 Measurement of Cardiac Sampling and Pressure, Left Heart, Percutaneous Approach (ICD-10-PCS; principal; 2018-04-11)
PROC: B2051ZZ Plain Radiography of Left Heart using Low Osmolar Contrast (ICD-10-PCS; 2018-04-11)
PROC: B2011ZZ Plain Radiography of Multiple Coronary Arteries using Low Osmolar Contrast (ICD-10-PCS; 2018-04-11)
PROC: 0CBM8ZX Excision of Pharynx, Via Natural or Artificial Opening Endoscopic, Diagnostic (ICD-10-PCS; 2018-04-15)
DX: I25.110 Atherosclerotic heart disease of native coronary artery with unstable angina pectoris (principal); I50.32 Chronic diastolic (congestive) heart failure; R18.8 Other ascites; I16.0 Hypertensive urgency; I11.0 Hypertensive heart disease with heart failure; N40.0 Benign prostatic hyperplasia without lower urinary tract symptoms; E11.51 Type 2 diabetes mellitus with diabetic peripheral angiopathy without gangrene; E87.1 Hypo-osmolality and hyponatremia; D50.9 Iron deficiency anemia, unspecified; I31.3 Pericardial effusion (noninflammatory); J84.10 Pulmonary fibrosis, unspecified; E11.649 Type 2 diabetes mellitus with hypoglycemia without coma; I27.29 Other secondary pulmonary hypertension; J34.2 Deviated nasal septum; J44.9 Chronic obstructive pulmonary disease, unspecified; K14.9 Disease of tongue, unspecified; K14.0 Glossitis; J04.0 Acute laryngitis; G47.33 Obstructive sleep apnea (adult) (pediatric); Z68.41 Body mass index [BMI] 40.0-44.9, adult; J37.0 Chronic laryngitis; J31.2 Chronic pharyngitis; E78.5 Hyperlipidemia, unspecified; K57.30 Diverticulosis of large intestine without perforation or abscess without bleeding; E66.01 Morbid (severe) obesity due to excess calories; K76.89 Other specified diseases of liver; M17.12 Unilateral primary osteoarthritis, left knee; N32.0 Bladder-neck obstruction; Z79.4 Long term (current) use of insulin; Z79.899 Other long term (current) drug therapy; Z82.49 Family history of ischemic heart disease and other diseases of the circulatory system